=== PATIENT | female | born 1950 | race Caucasian/White ===

== ENCOUNTER 2017-01-13 23:25 | Inpatient (IN) | payer MEDICARE, MEDICAID ==
[~2017-01-13] VITALS: Ht 162.6 cm; Wt 70.0 kg
[~2017-01-13 23:25] MED LIST: BISA10SU12 RC; CETI10TA17 PO; DILT30TA PO; ESTR0.5T PO; ESTR1PAT31; FURO20TA4 PO; HYDR-3729 PO; HYDR-3812 PO; HYDR10TA13 PO; HYDR50TA76 PO; IBP800T PO; LACT10SO63 PO; LEVO750T24 PO; LUBI24CA6 PO; MAGN400T6 PO; MELA3TAB PO; MULT-35 PO; NEBI2.5T5 PO; NEBI5TAB8 PO; NFNEB10T PO; OXYC5TAB71 PO; PANT40TA3 PO; RT-ALBUINH IH; SUCR1TAB PO; THIA100T7 PO; TRAM50TA2 PO; VENTOLIN HFA INHALER INH
[2017-01-13] MEDS ORDERED: fentaNYL INJECTION 100 MCG/2 ML AMP ONE (23:32)
[2017-01-13] MEDS ORDERED: LORazepam INJ 2 MG/ML (ATIVAN) VIAL ONE (23:33)
[2017-01-13] MEDS: ONDANSETRON 4 MG/2 ML (SDV) Z0FRAN ONE (23:39)
[2017-01-13 23:40] LABS: BASOPHILS % (AUTO) 0 % (0-10); EOSINOPHILS # (AUTO) 0.1 10^3/uL (0.0-0.3); EOSINOPHILS % (AUTO) 1 % (0-10); LYMPHOCYTES # (AUTO) 0.8 X 10^3 (1.0-4.0); LYMPHOCYTES % (AUTO) 9 % (12-44); MEAN CORPUSCULAR HEMOGLOBIN 32 PG (25-34); MEAN CORPUSCULAR HGB CONC 35 G/DL (32-36); MEAN CORPUSCULAR VOLUME 92 FL (80-99); MEAN PLATELET VOLUME 8.4 FL (7.4-10.4); MONOCYTES # (AUTO) 0.8 X 10^3 (0.0-1.0); MONOCYTES % (AUTO) 10 % (0-12); NEUTROPHILS % (AUTO) 81 % (42-75); PLATELET COUNT 367 10^3/uL (130-400); RED BLOOD COUNT 3.79 10^6/uL (4.35-5.85); WHITE BLOOD COUNT 8.6 10^3/uL (4.3-11.0)
[2017-01-13] MEDS ORDERED: LORazepam INJ 2 MG/ML (ATIVAN) VIAL IVP ONE (23:45)
[2017-01-13] MEDS ORDERED: fentaNYL INJECTION 100 MCG/2 ML AMP IVP ONE (23:45)
[2017-01-13] MEDS ORDERED: ONDANSETRON 4 MG/2 ML (SDV) Z0FRAN IVP ONE (23:45)
[2017-01-13 23:49] LABS: PROTHROMBIN TIME PATIENT 12.9 SEC (12.2-14.7)
[2017-01-14] VITALS (8 sets, daily range): BP systolic 93–169; BP diastolic 55–90
[2017-01-14] LABS: MAGNESIUM 2.2 MG/DL (1.8-2.4)
[2017-01-14 00:02] LABS: ALBUMIN 4.5 G/DL (3.2-4.5); ALCOHOL < 10 MG/DL (<10); BILIRUBIN,TOTAL 0.6 MG/DL (0.1-1.0); CALCIUM 10.6 MG/DL (8.5-10.1); CREATININE SERUM 2.08 MG/DL (0.60-1.30); POTASSIUM 3.1 MMOL/L (3.6-5.0); TOTAL PROTEIN 7.8 G/DL (6.4-8.2); hs C REACTIVE PROTEIN 0.54 MG/DL (0.00-0.50)
[2017-01-14] MEDS ORDERED: NS IV 1000 ML 1,000 ML IV ONE (00:05)
[2017-01-14] MEDS ORDERED: LACTATED RINGERS 1,000 ML IV ONE (00:13)
[2017-01-14] MEDS ORDERED: fentaNYL INJECTION 100 MCG/2 ML AMP IVP ONE (00:15)
[2017-01-14] MEDS: ONDANSETRON 4 MG/2 ML (SDV) Z0FRAN ONE (00:16)
[2017-01-14 00:58] LABS: OCCULT BLOOD NEGATIVE QC NEGATIVE (NEGATIVE); OCCULT BLOOD POSITIVE QC POSITIVE (POSITIVE); OCCULT BLOOD,GASTRIC FLUID POSITIVE (NEGATIVE)
[2017-01-14] MEDS ORDERED: PANTOPRAZOLE 40 MG/10 ML (PROTONIX) VIAL IV ONE (01:15)
[2017-01-14] MEDS ORDERED: FAMOTIDINE 20MG/2ML IV (PEPCID) IVP ONE (01:15)
[2017-01-14 01:35] LABS: BILIRUBIN,URINE NEGATIVE (NEGATIVE); KETONES,URINE NEGATIVE (NEGATIVE); LEUKOCYTE ESTERASE ,URINE 3+ (NEGATIVE); NITRITE,URINE NEGATIVE (NEGATIVE); PH,URINE 6 (5-9); PROTEIN,URINE 2+ (NEGATIVE); UROBILINOGEN,URINE NORMAL (NORMAL)
--- NOTE | 2017-01-14 01:40 | ED Abdominal Pain ---
General Chief Complaint: Abdominal/GI Problems Stated Complaint: N/V/D Nursing Triage Note: EMS transport to ED 8, call for N/V/D. Pt is hysterical with moaning and sobbing and experiencing carpal pedal spasms. 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 Has started c/o sx this evening. Sepsis Screen: No Definite Risk Source of Information: Patient, Old Records Exam Limitations: No Limitations History of Present Illness Time Seen By Provider: 23:24 Initial Comments This 66-year-old woman presents to the emergency room via EMS with complaints of nausea, vomiting, and diarrhea that started this evening. She denies fever. She seems somewhat disoriented. She reports drinking beer last night but not tonight. EMS reports her stool and emesis has been dark. She does have a history of GI bleed. She has a history of atrial fibrillation but is not on anticoagulation due to history of GI bleed. She also has a history of small bowel obstruction in the past. She was given Zofran 2 mg by EMS. Patient is very anxious and hyperventilating. Her hands are cramping as a result. Allergies and Home Medications Allergies Coded Allergies: Penicillins (Unverified Allergy, Unknown, 04/30/16) codeine (Unverified Allergy, Unknown, dizziness, 05/03/16) pt reports she has had morphine before and has had no problems with it Uncoded Allergies: MYACIN (Allergy, Unknown, 09/06/15) Home Medications Albuterol Sulfate 18 Gm Hfa.aer.ad, 1-2 PUFF IH Q4H PRN for SHORTNESS OF BREATH, (Reported) Diltiazem HCl 30 Mg Tablet, 30 MG PO BID, (Reported) Furosemide 20 Mg Tablet, 20 MG PO DAILY, (Reported) Hydrocortisone 10 Mg Tablet, 10 MG PO BID, (Reported) Lactulose 10 Gm/15 Ml Solution, 15 ML PO BID, (Reported) Lubiprostone 24 Mcg Capsule, 24 MCG PO BID, (Reported) Magnesium Oxide 400 Mg Tablet, 400 MG PO BID, (Reported) Melatonin 3 Mg Tablet, 3 MG PO HS PRN for SLEEP, (Reported) Sucralfate 1 Gm Tablet, 1 GM PO ACHS, (Reported) Thiamine HCl 100 Mg Tablet, 100 MG PO DAILY, (Reported) Tramadol HCl 50 Mg Tablet, 50 MG PO Q8H PRN for PAIN, (Reported) Review of Systems Constitutional: no symptoms reported EENTM: No Symptoms Reported Respiratory: No Symptoms Reported Cardiovascular: No Symptoms Reported Gastrointestinal: See HPI Genitourinary: No Symptoms Reported Musculoskeletal: no symptoms reported Skin: no symptoms reported Psychiatric/Neurological: No Symptoms Reported Endocrine: No Symptoms Reported Hematologic/Lymphatic: No Symptoms Reported Past Evgxvrj-Vzppkj-Qdxcml Hx Patient Social History Alcohol Use: Occasionally Uses Recreational Drug Use: No Drug of Choice: none Smoking Status: Current Everyday Smoker Type Used: Electronic/Vapor Former Smoker/When Quit: Nov 10, 2015 Recent Foreign Travel: No Contact w/Someone Who Travel: No Recent Infectious Disease Expo: No Recent Hopitalizations: No Immunizations Up To Date Tetanus Booster (TDap): More than 5yrs Date of Pneumonia Vaccine: Aug 23, 2007 Seasonal Allergies Seasonal Allergies: No Surgeries HX Surgeries: Yes (PICC LINE, EGD/COLONOSCOPY; LIVER ABSCESS; SCLEROTHERAPY FOR GI BLEED) Surgeries: Appendectomy, Section, Ear Surgery, Gallbladder, Hysterectomy, Oophorectomy, Tonsillectomy Respiratory Hx Respiratory Disorders: Yes Respiratory Disorders: Asthma, COPD, Emphysema Cardiovascular Hx Cardiac Disorders: Yes Cardiac Disorders: Atrial Fibrillation (no anticoagulation due to GI bleeds), Chronic Edema/Swelling, Hypertension Neurological Hx Neurological Disorders: No Reproductive System Hx Reproductive Disorders: Yes Sexually Transmitted Disease: No HIV/AIDS: 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 Genitourinary Hx Genitourinary Disorders: No Gastrointestinal Hx Gastrointestinal Disorders: Yes (PANCREATIC ABSCESS, HX BOWEL BLOCKAGE) Gastrointestinal Disorders: Liver Disease/Jaundice, Gastrointestinal Bleed, Obstructive Bowel Musculoskeletal Hx Musculoskeletal Disorders: Yes (MUSCLE INJURY TO LEFT HIP FROM FALL AT WORK) Musculoskeletal Disorders: Osteoporosis, Arthritis, Rheumatoid Arthritis Endocrine Hx Endocrine Disorders: No HEENT HX ENT Disorders: No Cancer Hx Cancer: No Psychosocial Hx Psychiatric Problems: No Integumentary HX Skin/Integumentary Disorder: Yes (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 ) Adverse Reaction to a Blood Tr: No Family Medical History Family Medial History: Cardiovascular disease 19 MOTHER (cabg) Neoplasm 19 FATHER (multiple myloma) Physical Exam Vital Signs VS - Last 72 Hours, by Label 01/13/17 23:26 Temp 98.6 Pulse 98 Resp 27 B/P (MAP) 101/65 Pulse Ox 97 O2 Flow Rate 2.00 Capillary Refill : Less Than 3 Seconds General Appearance: WD/WN, moderate distress HEENT: PERRL/EOMI, normal ENT inspection, other (oropharynx somewhat dry) Neck: normal inspection Respiratory: lungs clear, normal breath sounds, no respiratory distress, no accessory muscle use Cardiovascular: no edema, no murmur, irregularly irregular Gastrointestinal: normal bowel sounds, distended (firm and distended), tenderness (generalized) Extremities: normal inspection, no pedal edema 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, alert, motor weakness ( generalized), other (disoriented) Skin: normal color, warm/dry Progress/Results/Core Measures Results/Orders Lab Results Laboratory Tests Test 01/13/17 00:18 01/13/17 01:28 01/13/17 23:33 01/14/17 00:16 Range/Units Gastric Fluid Occult Blood POSITIVE NEGATIVE Urine Color YELLOW Urine Clarity VERY CLOUDY H Urine pH 6 5-9 Urine Specific [place] 1.010 L 1.016-1.022 Urine Protein 2+ H NEGATIVE Urine Glucose (UA) NEGATIVE NEGATIVE Urine Ketones NEGATIVE NEGATIVE Urine Nitrite NEGATIVE NEGATIVE Urine Bilirubin NEGATIVE NEGATIVE Urine Urobilinogen NORMAL NORMAL MG/DL Urine Leukocyte Esterase 3+ H NEGATIVE Urine RBC (Auto) 1+ H NEGATIVE Urine RBC 10-25 H /HPF Urine WBC 25-50 H /HPF Urine Squamous Epithelial Cells 2-5 /HPF Urine Crystals NONE /LPF Urine Bacteria LARGE H /HPF Urine Casts NONE /LPF Urine Mucus MODERATE H /LPF Urine Culture Indicated YES White Blood Count 8.6 4.3-11.0 10^3/uL Red Blood Count 3.79 L 4.35-5.85 10^6/uL Hemoglobin 12.1 11.5-16.0 G/DL Hematocrit 35 35-52 % Mean Corpuscular Volume 92 80-99 FL Mean Corpuscular Hemoglobin 32 25-34 PG Mean Corpuscular Hemoglobin Concent 35 32-36 G/DL Red Cell Distribution Width 13.0 10.0-14.5 % Platelet Count 367 130-400 10^3/uL Mean Platelet Volume 8.4 7.4-10.4 FL Neutrophils (%) (Auto) 81 H 42-75 % Lymphocytes (%) (Auto) 9 L 12-44 % Monocytes (%) (Auto) 10 0-12 % Eosinophils (%) (Auto) 1 0-10 % Basophils (%) (Auto) 0 0-10 % Neutrophils # (Auto) 7.0 1.8-7.8 X 10^3 Lymphocytes # (Auto) 0.8 L 1.0-4.0 X 10^3 Monocytes # (Auto) 0.8 0.0-1.0 X 10^3 Eosinophils # (Auto) 0.1 0.0-0.3 10^3/uL Basophils # (Auto) 0.0 0.0-0.1 10^3/uL Prothrombin Time 12.9 12.2-14.7 SEC INR Comment 1.0 0.8-1.4 Activated Partial Thromboplast Time 34 24-35 SEC Sodium Level 134 L 135-145 MMOL/L Potassium Level 3.1 L 3.6-5.0 MMOL/L Chloride Level 81 L 98-107 MMOL/L Carbon Dioxide Level 31 21-32 MMOL/L Anion Gap 22 H 5-14 MMOL/L Blood Urea Nitrogen 24 H 7-18 MG/DL Creatinine 2.08 H 0.60-1.30 MG/DL Estimat Glomerular Filtration Rate 24 BUN/Creatinine Ratio 12 Glucose Level 118 H 70-105 MG/DL Calcium Level 10.6 H 8.5-10.1 MG/DL Magnesium Level 2.2 1.8-2.4 MG/DL Total Bilirubin 0.6 0.1-1.0 MG/DL Aspartate Amino Transf (AST/SGOT) 28 5-34 U/L Alanine Aminotransferase (ALT/SGPT) 20 0-55 U/L Alkaline Phosphatase 190 H 40-136 U/L C-Reactive Protein High Sensitivity 0.54 H 0.00-0.50 MG/DL Total Protein 7.8 6.4-8.2 G/DL Albumin 4.5 3.2-4.5 G/DL Lipase 34 8-78 U/L Serum Alcohol < 10 <10 MG/DL Ammonia 12 11-32 UMOL/L My Orders Orders - MICHAEL VÁZQUEZ MD Ondansetron Injection (Zofran Injectio (01/13/17 23:45) Fentanyl Injection (Sublimaze Injection (01/13/17 23:45) Lorazepam Injection (Ativan Injection) (01/13/17 23:45) Cbc With Automated Diff (01/13/17 23:35) Comprehensive Metabolic Panel (01/13/17 23:35) Hs C Reactive Protein (01/13/17 23:35) Lipase (01/13/17 23:35) Protime With Inr (01/13/17 23:35) Partial Thromboplastin Time (01/13/17 23:35) Ua Culture If Indicated (01/13/17 23:35) Saline Lock/Iv-Start (01/13/17 23:35) Fentanyl Injection (Sublimaze Injection (01/13/17 23:32) Ondansetron Injection (Zofran Injectio (01/13/17 23:32) Lorazepam Injection (Ativan Injection) (01/13/17 23:33) Alcohol (01/13/17 23:37) Magnesium (01/13/17 23:37) Fentanyl Injection (Sublimaze Injection (01/14/17 00:15) Chest 1 View, Ap/Pa Only (01/14/17 00:05) Ns Iv 1000 Ml (Sodium Chloride 0.9%) (01/14/17 00:05) Ammonia (01/14/17 00:12) Lactated Ringers (Lr 1000 Ml Iv Solution (01/14/17 00:13) Ct Abdomen/Pelvis Wo (01/14/17 00:29) Occult Blood,Gastric Fluid (01/14/17 00:44) Drug Screen Stat (Urine) (01/13/17 23:35) Famotidine Injection (Pepcid Injection) (01/14/17 01:15) Pantoprazole Injection (Protonix Injecti (01/14/17 01:15) Medications Given in ED Current Medications Medications Dose Ordered Sig/Austyn Route Start Time Stop Time Status Last Admin Dose Admin Famotidine 20 mg ONCE ONCE IVP 01/14/17 01:15 01/14/17 01:16 DC 01/14/17 01:15 20 MG Fentanyl Citrate 25 mcg ONCE ONCE IVP 01/14/17 00:15 01/14/17 00:16 DC 01/14/17 00:10 25 MCG Lactated Ringer's 1,000 ml @ 0 mls/hr Q0M ONCE IV 01/14/17 00:13 01/14/17 00:14 DC 01/14/17 00:50 999 MLS/HR Lorazepam 0.5 mg ONCE ONCE IVP 01/13/17 23:45 01/13/17 23:46 DC 01/13/17 23:37 0.5 MG Ondansetron HCl 4 mg ONCE ONCE IVP 01/13/17 23:45 01/13/17 23:46 DC 01/13/17 23:37 4 MG Ondansetron HCl 4 mg STK-MED ONCE .ROUTE 01/13/17 23:32 01/13/17 23:36 DC 01/14/17 00:16 4 MG Pantoprazole 80 mg ONCE ONCE IV 01/14/17 01:15 01/14/17 01:16 DC 01/14/17 01:15 80 MG Vital Signs/I&O Vital Sign - Last 12Hours 01/13/17 23:26 Temp 98.6 Pulse 98 Resp 27 B/P (MAP) 101/65 Pulse Ox 97 O2 Flow Rate 2.00 Blood Pressure Mean: 77 Progress Note : Progress Note Workup for suspected bowel obstruction was initiated. Patient was very anxious and hyperventilating. She was given 0.25 mg of Ativan which caused apnea. Nasal cannula was applied. The sedative effect cleared fairly rapidly. Patient was vomiting during assessment. Emesis was dark and tested positive for gastric Hemoccult. Patient was treated with an additional 8 mg of Zofran to control nausea and vomiting. NG was placed prior to transfer to CT scan. She had an immediate yield of 800 mL of gastric contents. CT scan confirmed small bowel obstruction. Patient was hydrated with 1 L of lactated Ringer's. Mccallum catheter was placed. Patient's pain was eventually treated with fentanyl 25 g after the effect of Ativan wore off. Patient was also found to have a urinary tract infection. Cipro was ordered to be initiated on the floor. Patient has a penicillin allergy. Patient's mentation and distress improved significantly after gastric contents were emptied with NG. Total NG output during the course of her ER stay was 1550 mL. Protonix 80 mg and Pepcid 20 mg were administered by IV route. Diagnostic Imaging Diagonstic Imaging: CT Plain Films/CT/US/NM/MRI: abdomen, pelvis Comments CT abdomen and pelvis viewed by me and [facility] report reviewed. There is small bowel dilatation with focal transition point suggesting a small bowel obstruction. NG tube in place. Internal plastic biliary stent noted with pneumobilia. Epigastric hernia containing transverse colon. Diverticulosis. Post cholecystectomy. Severe right hip degenerative changes. Departure Communication Time/Spoke to Admitting Phy: 01:05 Communication Case reviewed with Dr. Cherry. He requests consultation with surgery. Time/Spoke to Consulting Physi: 01:10 Communication/Consulting Case reviewed with Dr. Ramírez who requests a small bowel follow through to be performed with Gastrografin in the morning. Impression Impression: Primary Impression: Small bowel obstruction Additional Impressions: Acute renal failure Qualified Codes: N17.9 - Acute kidney failure, unspecified Nausea vomiting and diarrhea positive gastric Hemoccult Hypokalemia Disorientation Chronic atrial fibrillation Hyperventilation Urinary tract infection Qualified Codes: N39.0 - Urinary tract infection, site not specified Disposition: 01 HOME, SELF-CARE Condition: Improved Decision to Admit Reason: Admit from ER (General) Decision to Admit/Date: January 14, 2017 Time/Decision to Admit Time: 23:30 Departure-Patient Inst. Referrals: DENICE STUART DO (PCP/Family) Primary Care Physician MICHAEL VÁZQUEZ MD January 14, 2017 01:40
[2017-01-14 01:55] LABS: WBC,URINE 25-50 /HPF
[2017-01-14] MEDS ORDERED: CIPROFLOXACIN IV 400MG/200ML 200 ML IV ONE (03:15)
[2017-01-14] MEDS ORDERED: NS W/KCL 20 MEQ/L 1,000 ML IV ONE (03:16)
[2017-01-14] MEDS: NS W/KCL 20 MEQ/L 1,000 ML IV SCH ×5 (04:00→20:56)
[2017-01-14 07:00] LABS: BASOPHILS % (AUTO) 0 % (0-10); EOSINOPHILS # (AUTO) 0.1 10^3/uL (0.0-0.3); EOSINOPHILS % (AUTO) 2 % (0-10); LYMPHOCYTES # (AUTO) 0.5 X 10^3 (1.0-4.0); LYMPHOCYTES % (AUTO) 11 % (12-44); MEAN CORPUSCULAR HEMOGLOBIN 31 PG (25-34); MEAN CORPUSCULAR HGB CONC 33 G/DL (32-36); MEAN CORPUSCULAR VOLUME 95 FL (80-99); MEAN PLATELET VOLUME 8.4 FL (7.4-10.4); MONOCYTES # (AUTO) 0.8 X 10^3 (0.0-1.0); MONOCYTES % (AUTO) 21 % (0-12); NEUTROPHILS # (AUTO) 2.7 X 10^3 (1.8-7.8); NEUTROPHILS % (AUTO) 66 % (42-75); PLATELET COUNT 280 10^3/uL (130-400); RED BLOOD COUNT 3.34 10^6/uL (4.35-5.85); RED CELL DISTRIBUTION WIDTH 13.1 % (10.0-14.5)
[2017-01-14 07:16] LABS: ALBUMIN 3.6 G/DL (3.2-4.5); BILIRUBIN,TOTAL 0.6 MG/DL (0.1-1.0); CALCIUM 8.8 MG/DL (8.5-10.1); CREATININE SERUM 2.48 MG/DL (0.60-1.30); MAGNESIUM 1.9 MG/DL (1.8-2.4); POTASSIUM 4.5 MMOL/L (3.6-5.0); TOTAL PROTEIN 6.1 G/DL (6.4-8.2)
[2017-01-14 07:26] LABS: BASOPHILS % (MANUAL) 1 %; EOSINOPHILS % (MANUAL) 1 %; LYMPHOCYTES % (MANUAL) 13 %; NEUTROPHILS % (MANUAL) 68 %
--- NOTE | 2017-01-14 08:27 | History & Physicial (CHS) ---
HPI History of Present Illness: 66-year-old female presents to the emergency department during the evening of January 13, 2017 with reports of nausea and vomiting. She is a patient of [facility] and does report she sees Dr. Silva. Apparently she has also had diarrhea and the symptoms started during the evening of day of presentation. Patient does have a history of gastrointestinal bleed. She does have history of atrial fibrillation but is not taking any anticoagulation therapy currently. There is no reports of any fever. She denies any burning on urination. Source: patient Exam Limitations: clinical condition Date seen by provider: January 14, 2017 Attending Physician Gilma Chase MD PCP Maria Luisa Ricks DO Consult Date of Admission January 14, 2017 at 01:15 Home Medications Home Medications Reviewed patient Home Medication Reconciliation Form Allergies Coded Allergies: Penicillins (Unverified Allergy, Unknown, 04/30/16) codeine (Unverified Allergy, Unknown, dizziness, 05/03/16) pt reports she has had morphine before and has had no problems with it Uncoded Allergies: MYACIN (Allergy, Unknown, 09/06/15) LQT-Ndxoum-Kxvenn Hx Patient Social History Alcohol Use: Occasionally Uses Recreational Drug Use: No Drug of Choice: none Smoking Status: Current Everyday Smoker Former smoker/When Quit: Nov 10, 2015 Type Used: Electronic/Vapor Contact w/other who traveled: No Recent Hopitalizations: No Recent Infectious Disease Expo: No Immunizations Up To Date Tetanus Booster (TDap): More than 5yrs Date of Pneumonia Vaccine: Aug 23, 2007 Past Medical History PMHx: 1.Arthritis 2.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 Recent GI bleed with sclerotherapy 7. Atrial Fibrillation with inability to take anticoagulant secondary to GI bleed PSHx: 1.Hysterectomy 2. x 2 3.Tonsillectomy 4.Ear surgeries 5.EGD and Colonoscopy with sclerotherapy Dandre 08/25 Family Medical History Family History: Cardiovascular disease 19 MOTHER (cabg) Neoplasm 19 FATHER (multiple myloma) Review of Systems ([facility]) Constitutional: see HPI Physical Exam-([facility]C) Physical Exam Vital Signs VS - Last 72 Hours, by Label 01/13/17 01/14/17 01/14/17 01/14/17 23:26 02:10 02:25 02:30 Temp 98.6 98.6 99.8 Pulse 98 91 106 Resp 27 18 16 B/P (MAP) 101/65 139/76 Pulse Ox 97 100 100 99 O2 Delivery Nasal Cannula O2 Flow Rate 2.00 2.00 2.00 01/14/17 01/14/17 01/14/17 01/14/17 03:00 03:22 04:30 05:11 Temp 99.8 99.2 Pulse 95 90 89 Resp 18 18 B/P (MAP) 119/58 104/68 Pulse Ox 95 100 100 O2 Delivery Nasal Cannula Nasal Cannula O2 Flow Rate 2.00 2.00 2.00 01/14/17 01/14/17 01/14/17 01/14/17 05:30 07:06 07:10 08:00 Temp 99.3 100.0 Pulse 90 99 95 Resp 18 B/P (MAP) 93/55 114/55 Pulse Ox 100 100 99 O2 Delivery Nasal Cannula Nasal Cannula O2 Flow Rate 2.00 2.00 2.00 01/14/17 01/14/17 01/14/17 01/14/17 09:00 12:36 12:57 16:00 Temp 99.1 98.3 Pulse 90 93 99 Resp 20 20 B/P (MAP) 105/56 161/84 Pulse Ox 99 94 94 O2 Delivery Nasal Cannula Nasal Cannula O2 Flow Rate 1.00 2.00 2.00 01/14/17 01/14/17 01/14/17 01/14/17 18:32 20:00 21:00 21:33 Temp 98.2 Pulse 102 Resp 20 B/P (MAP) 169/90 Pulse Ox 96 98 97 95 O2 Delivery Nasal Cannula O2 Flow Rate 1.00 2.00 1.00 1.00 01/15/17 01/15/17 01/15/17 03:42 04:45 07:16 Temp 99.2 Pulse 103 103 Resp 20 B/P (MAP) 170/87 Pulse Ox 96 97 O2 Delivery Nasal Cannula O2 Flow Rate 1.00 2.00 Capillary Refill : Less Than 3 Seconds General Appearance: mild distress (She does appear to be somewhat lethargic but she does answer questions appropriately) Eyes: Bilateral Eye Normal Inspection Neck: non-tender, supple Respiratory: lungs clear Cardiovascular: irregularly irregular (but the rate is controlled at 100) Gastrointestinal: soft (But she does have nasogastric tube in place), no pulsatile mass, abnormal bowel sounds (With the sounds being distant and not heard currently) Rectal: deferred Extremities: no pedal edema Assessment/Plan Assessment/Plan Admission Dx 1. Small bowel obstruction 2. Acute renal insufficiency--as evident by elevated creatinine 3. Hypokalemia 4. Urinary tract infection 5. Atrial fibrillation with rate controlled-- history of Plan 1. Small bowel obstruction -Patient currently with nasogastric tube in place. -Consultation with surgery and plans are for small bowel follow-through in the morning of January 14 2. Acute renal insufficiency--as evident by elevated creatinine -Creatinine followed carefully. -Rehydration with IV fluids 3. Hypokalemia -Potassium replacement per IV fluids 4. Urinary tract infection -She was started on IV ciprofloxacin through the emergency department 5. Atrial fibrillation with rate controlled-- history of -Continue to monitor rate Diagnosis/Problems: Clinical Quality Measures DVT/VTE Risk/Contraindication: Risk Factor Score Per Nursin RFS Level Per Nursing on Admit: 4+=Very High GILMA CHASE MD January 14, 2017 08:27
--- NOTE | 2017-01-14 08:32 | Diagnostic Imaging Report ---
INDICATION: Nausea, vomiting, diarrhea, and severe abdominal pain EXAMINATION: Chest dated 01/14/2017 COMPARISON: 08/05/2016 FINDINGS: Heart is stable. Pulmonary vasculature is unremarkable. The lungs demonstrate no new findings with no effusions or infiltrates. There is no pneumothorax. There is a feeding tube coursing beneath the diaphragm. IMPRESSION: 1. Stable chest. No acute process. Dictated by: Dictated on workstation # [id number]
[2017-01-14] MEDS ORDERED: FAMOTIDINE 20MG/2ML IV (PEPCID) IVP SCH (09:00)
[2017-01-14] MEDS ORDERED: DIATRIZOATE MEGLUM/SODIUM 37% 120 ML (GASTROGRAFIN) NG ONE (09:00)
--- NOTE | 2017-01-14 09:18 | Diagnostic Imaging Report ---
PROCEDURE: CT abdomen and pelvis without contrast. TECHNIQUE: Multiple contiguous axial images were obtained through the abdomen and pelvis without the use of intravenous contrast. INDICATION: Nausea, vomiting, diarrhea, severe abdominal pain. EXAMINATION: CT abdomen and pelvis without contrast 01/14/2017. COMPARISON: 08/05/2016 FINDINGS: Since the previous examination the nodular-like density in the medial aspect of the right lower lung is noted measuring approximately a centimeter in size. Not seen previously but perhaps not included on previous CT. Dedicated imaging of the chest on a nonemergent basis could be performed to exclude other possible nodules. Otherwise a followup in 3 months could assure stability and/or resolution. Other tiny less than 2 mm nodules seen at the right lung base with areas of atelectasis or scarring bilaterally. Partially imaged likely calcified lymph nodes in the right hilum. There is a feeding tube tip in the stomach. There is an anterior abdominal wall hernia containing a loop of bowel likely portions of the transverse colon. Remaining colon however is nondistended. There are multiple dilated loops of small bowel diffusely throughout the abdomen which are fluid-filled. There is a focal transition point suspected in the left lower to central abdomen. There is a biliary stent in place. There is diffuse air within the biliary tree in the liver similar to previous. No free air is seen. There is diffuse diverticular disease without evidence for diverticulitis. Very minimal free fluid in pelvis is noted. There is no free air in the abdomen or pelvis. The bladder wall is thickened and could be due to underdistention versus cystitis correlate clinically. The osseous structures demonstrate diffuse degenerative findings fairly marked within the right hip. The liver and spleen contain multiple bilateral calcifications consistent with old granulomatous disease. The unopacified adrenal glands unremarkable. Pancreas is markedly atrophied. The kidneys contain small hypodensities too small to characterize especially without contrast. These could be followed as clinically warranted. IMPRESSION: 1. Findings within the small bowel loops suspicious for at least a partial small bowel obstruction, see above discussion. 2. Persistent pneumobilia with a stent in place as discussed above. 3. Intra-abdominal wall hernia containing a portion of the transverse colon but without a focal obstruction at this level. 4. Other incidental findings as discussed above. 5. Multiple other incidental findings as discussed above. Dictated by: Dictated on workstation # [id number]
[2017-01-14] MEDS: fentaNYL INJECTION 100 MCG/2 ML AMP IVP PRN ×10 (09:55→23:11)
[2017-01-14] MEDS: PANTOPRAZOLE 40 MG/10 ML (PROTONIX) VIAL IV SCH ×2 (11:44→20:39)
[2017-01-14] MEDS: DILTIAZEM 30 MG (CARDIZEM) TAB NG SCH ×2 (11:44→20:40)
[2017-01-14] MEDS: ONDANSETRON 4 MG/2 ML (SDV) Z0FRAN IV PRN ×2 (13:47→21:00)
--- NOTE | 2017-01-14 14:16 | Consultation ---
History of Present Illness History of Present Illness Patient Consulted On(carlos/time) 01/14/17 14:11 Date of Admission History of Present Illness CC nausea and emesis. Patient is a 66 year old female who began having nausea and emesis last night. She was taken to ED by ambulance. She states her abdomen was very distended and tender. Patient reports one previous episode of this as well. Ng tube was placed and was on LIWS and she states her abdomen has gone down some. She states she is passing some flatus. She had gastric contents from NG tube positive for occult blood. Patient no other complaints at this time. Denies nausea or emesis currently. No chest pain or shortness of breath. Mccallum in place no urinary complaints at this time. Allergies and Home Medications Allergies Coded Allergies: Penicillins (Unverified Allergy, Unknown, 04/30/16) codeine (Unverified Allergy, Unknown, dizziness, 05/03/16) pt reports she has had morphine before and has had no problems with it Uncoded Allergies: MYACIN (Allergy, Unknown, 09/06/15) Home Medications Albuterol Sulfate 18 Gm Hfa.aer.ad, 1-2 PUFF IH Q4H PRN for SHORTNESS OF BREATH, (Reported) Diltiazem HCl 30 Mg Tablet, 30 MG PO BID, (Reported) Furosemide 20 Mg Tablet, 20 MG PO DAILY, (Reported) Hydrocortisone 10 Mg Tablet, 10 MG PO BID, (Reported) Lactulose 10 Gm/15 Ml Solution, 15 ML PO BID, (Reported) Lubiprostone 24 Mcg Capsule, 24 MCG PO BID, (Reported) Magnesium Oxide 400 Mg Tablet, 400 MG PO BID, (Reported) Melatonin 3 Mg Tablet, 3 MG PO HS PRN for SLEEP, (Reported) Sucralfate 1 Gm Tablet, 1 GM PO ACHS, (Reported) Thiamine HCl 100 Mg Tablet, 100 MG PO DAILY, (Reported) Tramadol HCl 50 Mg Tablet, 50 MG PO Q8H PRN for PAIN, (Reported) Past Llntklv-Ttlhcw-Yqesnm Hx Patient Social History Alcohol Use: Occasionally Uses Recreational Drug Use: No Drug of Choice: none Smoking Status: Current Everyday Smoker Former Smoker/When Quit: Nov 10, 2015 Type Used: Electronic/Vapor Contact w/Someone Who Travel: No Recent Infectious Disease Expo: No Recent Hopitalizations: No Immunizations Up To Date Tetanus Booster (TDap): More than 5yrs Date of Pneumonia Vaccine: Aug 23, 2007 Seasonal Allergies Seasonal Allergies: No Surgeries HX Surgeries: Yes (PICC LINE, EGD/COLONOSCOPY; LIVER ABSCESS; SCLEROTHERAPY FOR GI BLEED, biliary stent) Surgeries: Appendectomy, Section, Ear Surgery, Gallbladder, Hysterectomy, Oophorectomy, Tonsillectomy Respiratory Hx Respiratory Disorders: Yes Respiratory Disorders: Asthma, COPD, Emphysema Cardiovascular Hx Cardiac Disorders: Yes Cardiac Disorders: Atrial Fibrillation (no anticoagulation due to GI bleeds), Chronic Edema/Swelling, Hypertension Neurological Hx Neurological Disorders: No Reproductive System Hx Reproductive Disorders: Yes Sexually Transmitted Disease: No HIV/AIDS: No [employer] History: Hysterectomy Genitourinary Hx Genitourinary Disorders: No Gastrointestinal Hx Gastrointestinal Disorders: Yes (PANCREATIC ABSCESS, HX BOWEL BLOCKAGE) Gastrointestinal Disorders: Liver Disease/Jaundice, Gastrointestinal Bleed, Obstructive Bowel Musculoskeletal Hx Musculoskeletal Disorders: Yes (MUSCLE INJURY TO LEFT HIP FROM FALL AT WORK) Musculoskeletal Disorders: Osteoporosis, Arthritis, Rheumatoid Arthritis Endocrine Hx Endocrine Disorders: No HEENT HX ENT Disorders: No Cancer Hx Cancer: No Psychosocial Hx Psychiatric Problems: No Integumentary HX Skin/Integumentary Disorder: Yes (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 ) Adverse Reaction to a Blood Tr: No Family Medical History Family Medial History: Cardiovascular disease 19 MOTHER (cabg) Neoplasm 19 FATHER (multiple myloma) Review of Systems-General Constitutional: see HPI EENTM: no symptoms reported Respiratory: no symptoms reported Cardiovascular: no symptoms reported Gastrointestinal: see HPI Genitourinary: no symptoms reported Musculoskeletal: no symptoms reported Skin: no symptoms reported Psychiatric/Neurological: No Symptoms Reported Physical Exam-General Problems Physical Exam Vital Signs Vital Sign - Last 12Hours 01/13/17 01/14/17 23:26 02:30 Temp 98.6 Pulse 98 Resp 27 B/P (MAP) 101/65 Pulse Ox 97 O2 Delivery Nasal Cannula O2 Flow Rate 2.00 Capillary Refill : Less Than 3 Seconds General Appearance: no apparent distress HEENT: PERRL/EOMI Neck: supple Respiratory: no respiratory distress, no accessory muscle use Cardiovascular: regular rate, rhythm Gastrointestinal: soft, distended (incisional hernia reducible epigastric region of abdomen. no significant tenderness to palpation of abdomen) Rectal: deferred Back: normal inspection Extremities: non-tender Neurologic/Psychiatric: alert, normal mood/affect, oriented x 3 Skin: warm/dry Comments right groin area with slight erythematous rash Data Review Labs Laboratory Tests 01/13/17 23:33: White Blood Count 8.6, Red Blood Count 3.79L, Hemoglobin 12.1, Hematocrit 35, Mean Corpuscular Volume 92, Mean Corpuscular Hemoglobin 32, Mean Corpuscular Hemoglobin Concent 35, Red Cell Distribution Width 13.0, Platelet Count 367, Mean Platelet Volume 8.4, Neutrophils (%) (Auto) 81H, Lymphocytes (%) (Auto) 9L , Monocytes (%) (Auto) 10, Eosinophils (%) (Auto) 1, Basophils (%) (Auto) 0, Neutrophils # (Auto) 7.0, Lymphocytes # (Auto) 0.8L, Monocytes # (Auto) 0.8, Eosinophils # (Auto) 0.1, Basophils # (Auto) 0.0, Prothrombin Time 12.9, INR Comment 1.0, Activated Partial Thromboplast Time 34, Sodium Level 134L, Potassium Level 3.1L, Chloride Level 81L, Carbon Dioxide Level 31, Anion Gap 22H , Blood Urea Nitrogen 24H, Creatinine 2.08H, Estimat Glomerular Filtration Rate 24, BUN/Creatinine Ratio 12, Glucose Level 118H, Calcium Level 10.6H, Magnesium Level 2.2, Total Bilirubin 0.6, Aspartate Amino Transf (AST/SGOT) 28, Alanine Aminotransferase (ALT/SGPT) 20, Alkaline Phosphatase 190H, C-Reactive Protein High Sensitivity 0.54H, Total Protein 7.8, Albumin 4.5, Lipase 34, Serum Alcohol < 10 01/14/17 00:16: Ammonia 12 01/14/17 06:50: White Blood Count 4.0L, Red Blood Count 3.34L, Hemoglobin 10.4L, Hematocrit 32L , Mean Corpuscular Volume 95, Mean Corpuscular Hemoglobin 31, Mean Corpuscular Hemoglobin Concent 33, Red Cell Distribution Width 13.1, Platelet Count 280, Mean Platelet Volume 8.4, Neutrophils (%) (Auto) 66, Lymphocytes (%) (Auto) 11L , Monocytes (%) (Auto) 21H, Eosinophils (%) (Auto) 2, Basophils (%) (Auto) 0, Neutrophils # (Auto) 2.7, Lymphocytes # (Auto) 0.5L, Monocytes # (Auto) 0.8, Eosinophils # (Auto) 0.1, Basophils # (Auto) 0.0, Sodium Level 135, Potassium Level 4.5, Chloride Level 85L, Carbon Dioxide Level 35H, Anion Gap 15H, Blood Urea Nitrogen 28H, Creatinine 2.48H, Estimat Glomerular Filtration Rate 20, BUN/ Creatinine Ratio 11, Glucose Level 112H, Calcium Level 8.8, Magnesium Level 1.9 , Total Bilirubin 0.6, Aspartate Amino Transf (AST/SGOT) 21, Alanine Aminotransferase (ALT/SGPT) 14, Alkaline Phosphatase 154H, Total Protein 6.1L, Albumin 3.6, Neutrophils % (Manual) 68, Lymphocytes % (Manual) 13, Monocytes % ( Manual) 17, Eosinophils % (Manual) 1, Basophils % (Manual) 1, Blood Morphology Comment NORMAL Assessment/Plan Assessment/Plan Assessment/Plan nausea and vomiting partial small bowel obstruction incisional hernia occult positive ng tube contents patient with ct scan findings consistent with small bowel obstruction had pneumobilia form stent unchanged from previous scan patient with NG tube Small bowel follow through in process. will continue with conservative management at this time. follow hgb + occult could be from ng insertion but does have history of GI bleed No surgical intervention at this time will follow. Clinical Quality Measures DVT/VTE Risk/Contraindication: Risk Factor Score Per Nursin RFS Level Per Nursing on Admit: 4+=Very High PENNIE ANDRES DO January 14, 2017 14:16
[2017-01-14 17:23] LABS: CALCIUM 8.5 MG/DL (8.5-10.1); CREATININE SERUM 2.49 MG/DL (0.60-1.30)
[2017-01-15] MEDS: fentaNYL INJECTION 100 MCG/2 ML AMP IVP PRN ×9 (00:41→22:39)
[2017-01-15 00:45] VITALS: BP 170/87
[2017-01-15] MEDS: FAMOTIDINE 20MG/2ML IV (PEPCID) IVP SCH (01:17)
[2017-01-15] MEDS: NS W/KCL 20 MEQ/L 1,000 ML IV SCH ×5 (01:36→19:58)
[2017-01-15] MEDS: CIPROFLOXACIN 400 MG/D5W 200 ML (PRE-MIX) IV SCH (03:11)
[2017-01-15] MEDS: ONDANSETRON 4 MG/2 ML (SDV) Z0FRAN IV PRN ×3 (03:12→14:14)
[2017-01-15 04:45] VITALS: BP 170/87
[2017-01-15 06:46] LABS: BASOPHILS % (AUTO) 0 % (0-10); EOSINOPHILS % (AUTO) 0 % (0-10); LYMPHOCYTES # (AUTO) 0.5 X 10^3 (1.0-4.0); LYMPHOCYTES % (AUTO) 12 % (12-44); MEAN CORPUSCULAR HEMOGLOBIN 32 PG (25-34); MEAN CORPUSCULAR HGB CONC 32 G/DL (32-36); MEAN CORPUSCULAR VOLUME 101 FL (80-99); MEAN PLATELET VOLUME 8.3 FL (7.4-10.4); MONOCYTES # (AUTO) 0.8 X 10^3 (0.0-1.0); MONOCYTES % (AUTO) 17 % (0-12); NEUTROPHILS # (AUTO) 3.2 X 10^3 (1.8-7.8); NEUTROPHILS % (AUTO) 71 % (42-75); PLATELET COUNT 260 10^3/uL (130-400); RED CELL DISTRIBUTION WIDTH 13.5 % (10.0-14.5); WHITE BLOOD COUNT 4.5 10^3/uL (4.3-11.0)
[2017-01-15 07:02] LABS: ALBUMIN 3.8 G/DL (3.2-4.5); BILIRUBIN,TOTAL 0.6 MG/DL (0.1-1.0); CALCIUM 8.7 MG/DL (8.5-10.1); CREATININE SERUM 1.76 MG/DL (0.60-1.30); POTASSIUM 4.5 MMOL/L (3.6-5.0); TOTAL PROTEIN 6.7 G/DL (6.4-8.2)
[2017-01-15 08:00] VITALS: BP 162/80
--- NOTE | 2017-01-15 08:56 | Progress Note (SOAP) ---
Subjective Subjective/Events-last exam patient with NG tube in place but it is clamped. She does report she is thirsty. She apparently had 2 bowel movements yesterday. The small bowel follow-through study was performed yesterday. Date seen by provider: January 15, 2017 Objective Exam Last Set of Vital Signs Vital Signs Date Time Temp Pulse Resp B/P (MAP) Pulse Ox O2 Delivery O2 Flow Rate FiO2 01/15/17 07:16 103 01/15/17 04:45 99.2 20 170/87 97 Nasal Cannula 2.00 Capillary Refill : Less Than 3 Seconds I&O Bad tableGeneral: No Acute Distress HEENT: Other (nasogastric tube in place) Lungs: Clear to Auscultation Heart: Regular Rate Abdomen: Soft Results/Procedures Lab Laboratory Tests 01/14/17 16:58: Sodium Level 140, Potassium Level 5.0, Chloride Level 97L, Carbon Dioxide Level 31, Anion Gap 12, Blood Urea Nitrogen 32H, Creatinine 2.49H, Estimat Glomerular Filtration Rate 19, BUN/Creatinine Ratio 13, Glucose Level 114H, Calcium Level 8.5 01/15/17 06:35: Sodium Level 143, Potassium Level 4.5, Chloride Level 105, Carbon Dioxide Level 26, Anion Gap 12, Blood Urea Nitrogen 29H, Creatinine 1.76H, Estimat Glomerular Filtration Rate 29, BUN/Creatinine Ratio 16, Glucose Level 98, Calcium Level 8.7 , White Blood Count 4.5, Red Blood Count 3.30L, Hemoglobin 10.5L, Hematocrit 33L , Mean Corpuscular Volume 101H, Mean Corpuscular Hemoglobin 32, Mean Corpuscular Hemoglobin Concent 32, Red Cell Distribution Width 13.5, Platelet Count 260, Mean Platelet Volume 8.3, Neutrophils (%) (Auto) 71, Lymphocytes (%) (Auto) 12, Monocytes (%) (Auto) 17H, Eosinophils (%) (Auto) 0, Basophils (%) ( Auto) 0, Neutrophils # (Auto) 3.2, Lymphocytes # (Auto) 0.5L, Monocytes # (Auto ) 0.8, Eosinophils # (Auto) 0.0, Basophils # (Auto) 0.0, Total Bilirubin 0.6, Aspartate Amino Transf (AST/SGOT) 19, Alanine Aminotransferase (ALT/SGPT) 14, Alkaline Phosphatase 147H, Total Protein 6.7, Albumin 3.8 Microbiology 01/13/17 Urine Culture - Final, Complete Klebsiella Pneumoniae Assessment/Plan Assessment/Plan Admission Dx 1. Small bowel obstruction 2. Acute renal insufficiency--as evident by elevated creatinine 3. Hypokalemia 4. Urinary tract infection 5. Atrial fibrillation with rate controlled-- history of Plan 1. Small bowel obstruction -Patient currently with nasogastric tube in place. -Consultation with surgery and plans are for small bowel follow-through in the morning of January 1401/15 awaiting results of small bowel follow-through 2. Acute renal insufficiency--as evident by elevated creatinine -Creatinine followed carefully. -Rehydration with IV fluids 01/15 creatinine has improved to 1.76 -Will recheck basic metabolic panel in the morning 3. Hypokalemia -Potassium replacement per IV fluids 01/15 check potassium in the morning 4. Urinary tract infection -She was started on IV ciprofloxacin through the emergency department 01/15 the urine culture revealed gram-negative myrna 5. Atrial fibrillation with rate controlled-- history of -Continue to monitor rate Diagnosis/Problems: Clinical Quality Measures DVT/VTE Risk/Contraindication: Risk Factor Score Per Nursin RFS Level Per Nursing on Admit: 4+=Very High GILMA CHASE MD January 15, 2017 08:56
[2017-01-15] MEDS: PANTOPRAZOLE 40 MG/10 ML (PROTONIX) VIAL IV SCH ×2 (09:20→20:23)
[2017-01-15] MEDS: DILTIAZEM 30 MG (CARDIZEM) TAB NG SCH ×2 (09:21→20:23)
--- NOTE | 2017-01-15 09:36 | Diagnostic Imaging Report ---
INDICATION: Bowel obstruction. FINDINGS: Examination shows multiple dilated loops of small bowel with no obstructing lesion or mucosal edema evident at this time. A 24-hour delayed film shows some contrast scattered throughout nondilated colon and the changes are consistent with a partial but high-grade small bowel obstruction. IMPRESSION: Small bowel obstruction which is probably at the level of the distal ileum. No obstructing lesion is seen. Dictated by: Dictated on workstation # [id number]
[2017-01-15 12:00] VITALS: BP 187/97
--- NOTE | 2017-01-15 13:07 | Progress Note ---
Subjective Subjective/Events-last exam Patient with flatus and 2 small bm yesterday. Ng tube clamped and having nausea which was placed back on LIWS. Patient hgb stable. Patient small bowel follow through demonstrating partial sbo with transition likely in distal ileum, some contrast in colon. Patient denies any other complaints at this time. Objective Exam Vital Signs Date Time Temp Pulse Resp B/P (MAP) Pulse Ox O2 Delivery O2 Flow Rate FiO2 01/15/17 08:00 99.4 106 16 162/80 91 Nasal Cannula 1.00 01/15/17 07:16 103 01/15/17 07:05 94 1.00 01/15/17 04:45 99.2 103 20 170/87 97 Nasal Cannula 2.00 01/15/17 03:42 96 1.00 01/14/17 21:33 95 1.00 01/14/17 21:00 97 1.00 01/14/17 20:00 98.2 102 20 169/90 98 Nasal Cannula 2.00 01/14/17 18:32 96 1.00 01/14/17 16:00 98.3 99 20 161/84 94 Nasal Cannula 2.00 I & O 01/15/17 07:00 Intake Total 5200 ml Output Total 1500 ml Balance 3700 ml Capillary Refill : Less Than 3 Seconds General Appearance: No Apparent Distress (sitting in chair) HEENT: PERRL/EOMI Neck: Normal Inspection Respiratory: No Accessory Muscle Use, No Respiratory Distress Cardiovascular: Regular Rate, Rhythm Gastrointestinal: soft (incisional hernia reducible), no pulsatile mass Extremity: Non Tender Neurologic/Psychiatric: Alert, Oriented x3, Normal Mood/Affect Skin: Warm/Dry Results Lab Laboratory Tests 01/14/17 16:58: Sodium Level 140, Potassium Level 5.0, Chloride Level 97L, Carbon Dioxide Level 31, Anion Gap 12, Blood Urea Nitrogen 32H, Creatinine 2.49H, Estimat Glomerular Filtration Rate 19, BUN/Creatinine Ratio 13, Glucose Level 114H, Calcium Level 8.5 01/15/17 06:35: Sodium Level 143, Potassium Level 4.5, Chloride Level 105, Carbon Dioxide Level 26, Anion Gap 12, Blood Urea Nitrogen 29H, Creatinine 1.76H, Estimat Glomerular Filtration Rate 29, BUN/Creatinine Ratio 16, Glucose Level 98, Calcium Level 8.7 , White Blood Count 4.5, Red Blood Count 3.30L, Hemoglobin 10.5L, Hematocrit 33L , Mean Corpuscular Volume 101H, Mean Corpuscular Hemoglobin 32, Mean Corpuscular Hemoglobin Concent 32, Red Cell Distribution Width 13.5, Platelet Count 260, Mean Platelet Volume 8.3, Neutrophils (%) (Auto) 71, Lymphocytes (%) (Auto) 12, Monocytes (%) (Auto) 17H, Eosinophils (%) (Auto) 0, Basophils (%) ( Auto) 0, Neutrophils # (Auto) 3.2, Lymphocytes # (Auto) 0.5L, Monocytes # (Auto ) 0.8, Eosinophils # (Auto) 0.0, Basophils # (Auto) 0.0, Total Bilirubin 0.6, Aspartate Amino Transf (AST/SGOT) 19, Alanine Aminotransferase (ALT/SGPT) 14, Alkaline Phosphatase 147H, Total Protein 6.7, Albumin 3.8 Microbiology 01/13/17 Urine Culture - Final, Complete Klebsiella Pneumoniae Assessment/Plan Assessment/Plan Assessment/Plan nausea and vomiting partial small bowel obstruction incisional hernia occult positive ng tube contents hgb stable patient with ct scan findings consistent with small bowel obstruction had pneumobilia form stent unchanged from previous scan patient with NG tube to LIWS Small bowel follow through partial obstruction with some contrast in colon will continue with conservative management at this time. discussed small bowel follow through results with patient hope the obstruction will open up, if not we discussed surgical intervention. She wishes to proceed with conservative management at this time. Clinical Quality Measures DVT/VTE Risk/Contraindication: Risk Factor Score Per Nursin RFS Level Per Nursing on Admit: 4+=Very High PENNIE ANDRES DO January 15, 2017 13:07
[2017-01-15] MEDS: KETOROLAC 60 MG/2 ML VIAL IM PRN (13:51)
[2017-01-15 16:00] VITALS: BP 156/82
[2017-01-15 20:00] VITALS: BP 160/79
[2017-01-16] VITALS (7 sets, daily range): BP systolic 128–186; BP diastolic 77–88
[2017-01-16] MEDS: FAMOTIDINE 20MG/2ML IV (PEPCID) IVP SCH (00:03)
[2017-01-16] MEDS ORDERED: KETOROLAC 30 MG/ML VIAL ONE ×2 (01:00→01:03)
[2017-01-16] MEDS: fentaNYL INJECTION 100 MCG/2 ML AMP IVP PRN ×2 (02:24→06:53)
[2017-01-16] MEDS: CIPROFLOXACIN 400 MG/D5W 200 ML (PRE-MIX) IV SCH ×2 (02:25→17:36)
[2017-01-16] MEDS: NS W/KCL 20 MEQ/L 1,000 ML IV SCH ×2 (04:44→11:40)
[2017-01-16 06:41] LABS: BASOPHILS % (AUTO) 0 % (0-10); EOSINOPHILS # (AUTO) 0.2 10^3/uL (0.0-0.3); EOSINOPHILS % (AUTO) 4 % (0-10); LYMPHOCYTES # (AUTO) 0.8 X 10^3 (1.0-4.0); LYMPHOCYTES % (AUTO) 20 % (12-44); MEAN CORPUSCULAR HEMOGLOBIN 32 PG (25-34); MEAN CORPUSCULAR HGB CONC 31 G/DL (32-36); MEAN CORPUSCULAR VOLUME 103 FL (80-99); MEAN PLATELET VOLUME 8.3 FL (7.4-10.4); MONOCYTES # (AUTO) 0.7 X 10^3 (0.0-1.0); MONOCYTES % (AUTO) 17 % (0-12); NEUTROPHILS # (AUTO) 2.4 X 10^3 (1.8-7.8); NEUTROPHILS % (AUTO) 59 % (42-75); PLATELET COUNT 212 10^3/uL (130-400); RED BLOOD COUNT 2.72 10^6/uL (4.35-5.85); RED CELL DISTRIBUTION WIDTH 13.3 % (10.0-14.5)
[2017-01-16 07:06] LABS: CALCIUM 8.5 MG/DL (8.5-10.1); CREATININE SERUM 1.36 MG/DL (0.60-1.30); POTASSIUM 5.2 MMOL/L (3.6-5.0)
[2017-01-16] MEDS: PANTOPRAZOLE 40 MG/10 ML (PROTONIX) VIAL IV SCH ×2 (08:44→20:48)
[2017-01-16] MEDS: DILTIAZEM 30 MG (CARDIZEM) TAB NG SCH ×2 (08:45→20:48)
--- NOTE | 2017-01-16 08:59 | Progress Note ---
Subjective Subjective/Events-last exam Patient resting in bed. She reports that she is having bowel movements but she is still nauseated. She still has a NG tube to low wall. She states that she wants to go home today and discuss her situation with her family. Objective Exam Vital Signs Date Time Temp Pulse Resp B/P (MAP) Pulse Ox O2 Delivery O2 Flow Rate FiO2 01/16/17 07:35 96.5 01/16/17 07:17 94 1.00 01/16/17 07:00 126 01/16/17 04:15 96.5 82 18 163/84 97 Nasal Cannula 1.00 01/16/17 02:33 95 01/16/17 01:00 93 01/16/17 00:30 100.0 85 20 165/88 96 Nasal Cannula 1.00 01/15/17 21:04 92 01/15/17 20:20 1.00 01/15/17 20:00 97.8 98 18 160/79 93 Nasal Cannula 1.00 01/15/17 19:12 121 01/15/17 18:21 91 01/15/17 16:00 97.1 98 18 156/82 100 Nasal Cannula 1.00 01/15/17 14:30 95 01/15/17 13:12 107 01/15/17 12:00 97.6 92 18 187/97 91 Nasal Cannula 1.00 01/15/17 10:45 96 I & O 01/16/17 07:00 Intake Total 2100 ml Output Total 3675 ml Balance -1575 ml Capillary Refill : Less Than 3 Seconds General Appearance: No Apparent Distress (sitting in chair) HEENT: PERRL/EOMI Neck: Normal Inspection Respiratory: No Accessory Muscle Use, No Respiratory Distress Cardiovascular: Regular Rate, Rhythm Gastrointestinal: soft (incisional hernia reducible), no pulsatile mass, tenderness (reports soreness to her upper quadrant w/o palpation. ) Extremity: Non Tender Neurologic/Psychiatric: Alert, Oriented x3, Normal Mood/Affect Skin: Warm/Dry Results Lab Laboratory Tests Test 01/14/17 16:58 01/15/17 06:35 01/16/17 06:27 Range/Units Sodium Level 140 143 144 135-145 MMOL/L Potassium Level 5.0 4.5 5.2 H 3.6-5.0 MMOL/L Chloride Level 97 L 105 113 H 98-107 MMOL/L Carbon Dioxide Level 31 26 24 21-32 MMOL/L Anion Gap 12 12 7 5-14 MMOL/L Blood Urea Nitrogen 32 H 29 H 23 H 7-18 MG/DL Creatinine 2.49 H 1.76 H 1.36 H 0.60-1.30 MG/DL Estimat Glomerular Filtration Rate 19 29 39 BUN/Creatinine Ratio 13 16 17 Glucose Level 114 H 98 77 70-105 MG/DL Calcium Level 8.5 8.7 8.5 8.5-10.1 MG/DL White Blood Count 4.5 4.0 L 4.3-11.0 10^3/uL Red Blood Count 3.30 L 2.72 L 4.35-5.85 10^6/uL Hemoglobin 10.5 L 8.6 L 11.5-16.0 G/DL Hematocrit 33 L 28 L 35-52 % Mean Corpuscular Volume 101 H 103 H 80-99 FL Mean Corpuscular Hemoglobin 32 32 25-34 PG Mean Corpuscular Hemoglobin Concent 32 31 L 32-36 G/DL Red Cell Distribution Width 13.5 13.3 10.0-14.5 % Platelet Count 260 212 130-400 10^3/uL Mean Platelet Volume 8.3 8.3 7.4-10.4 FL Neutrophils (%) (Auto) 71 59 42-75 % Lymphocytes (%) (Auto) 12 20 12-44 % Monocytes (%) (Auto) 17 H 17 H 0-12 % Eosinophils (%) (Auto) 0 4 0-10 % Basophils (%) (Auto) 0 0 0-10 % Neutrophils # (Auto) 3.2 2.4 1.8-7.8 X 10^3 Lymphocytes # (Auto) 0.5 L 0.8 L 1.0-4.0 X 10^3 Monocytes # (Auto) 0.8 0.7 0.0-1.0 X 10^3 Eosinophils # (Auto) 0.0 0.2 0.0-0.3 10^3/uL Basophils # (Auto) 0.0 0.0 0.0-0.1 10^3/uL Total Bilirubin 0.6 0.1-1.0 MG/DL Aspartate Amino Transf (AST/SGOT) 19 5-34 U/L Alanine Aminotransferase (ALT/SGPT) 14 0-55 U/L Alkaline Phosphatase 147 H 40-136 U/L Total Protein 6.7 6.4-8.2 G/DL Albumin 3.8 3.2-4.5 G/DL Laboratory Tests 01/16/17 06:27: White Blood Count 4.0L, Red Blood Count 2.72L, Hemoglobin 8.6L, Hematocrit 28L, Mean Corpuscular Volume 103H, Mean Corpuscular Hemoglobin 32, Mean Corpuscular Hemoglobin Concent 31L, Red Cell Distribution Width 13.3, Platelet Count 212, Mean Platelet Volume 8.3, Neutrophils (%) (Auto) 59, Lymphocytes (%) (Auto) 20, Monocytes (%) (Auto) 17H, Eosinophils (%) (Auto) 4, Basophils (%) (Auto) 0, Neutrophils # (Auto) 2.4, Lymphocytes # (Auto) 0.8L, Monocytes # (Auto) 0.7, Eosinophils # (Auto) 0.2, Basophils # (Auto) 0.0, Sodium Level 144, Potassium Level 5.2H, Chloride Level 113H, Carbon Dioxide Level 24, Anion Gap 7, Blood Urea Nitrogen 23H, Creatinine 1.36H, Estimat Glomerular Filtration Rate 39, BUN/ Creatinine Ratio 17, Glucose Level 77, Calcium Level 8.5 Microbiology 01/13/17 Urine Culture - Final, Complete Klebsiella Pneumoniae Assessment/Plan Assessment/Plan Assessment/Plan nausea and vomiting partial small bowel obstruction incisional hernia UTI hgb drop. patient with NG tube to [facility]. Patient reports she wants to go home. Discussed patient with Dr. Ramírez. Darrell- Patient states she's leaving. Patient passing flatus and bm. Feeling better. Denies n/v fever sweats chills shortness of breath or chest pain. Drop in Hgb. General no acute distress heart irregular lungs nonlabored breathing abdomen less distended soft, incisional hernia reduces ext nontender assessment as above pull ng tube start clear liquids anemia continue to monitor patient wanting to leave she was explained would like to monitor hgb may need egd to further evaluate Clinical Quality Measures DVT/VTE Risk/Contraindication: Risk Factor Score Per Nursin RFS Level Per Nursing on Admit: 4+=Very High KELLEY GAGE APRN January 16, 2017 08:59 PENNIE RAMÍREZ DO January 16, 2017 17:21
--- NOTE | 2017-01-16 12:05 | Progress Note (SOAP) ---
Subjective Subjective/Events-last exam Patient states that she is feeling much better. She is very thirsty this AM. Dr Ramírez in room this AM and has ordered CLD and removal of NG tube. Patient states that she is wanting to go home today. Passing small BM and flatus Date seen by provider: January 16, 2017 Objective Exam Last Set of Vital Signs Vital Signs Date Time Temp Pulse Resp B/P (MAP) Pulse Ox O2 Delivery O2 Flow Rate FiO2 01/16/17 10:28 94 2.00 01/16/17 08:00 97.5 91 20 186/80 Nasal Cannula Capillary Refill : Less Than 3 Seconds I&O Intake and Output 01/16/17 00:00 Intake Total 2250 ml Output Total 3750 ml Balance -1500 ml Intake Oral 50 ml IV Total 2200 ml Output Urine Total 1300 ml Gastric Drainage Total 2450 ml # Bowel Movements 2 General: Alert, Oriented X3, Cooperative, No Acute Distress HEENT: Other (NG tube in place, dry Mucus membranes) Lungs: Clear to Auscultation, Normal Air Movement Heart: Regular Rate, No Murmurs Abdomen: Soft, No Masses Extremities: No Edema, No Tenderness/Swelling Skin: No Rashes, No Breakdown Neuro: Normal Speech, Strength at 5/5 X4 Ext, Sensation Intact, Cranial Nerves 3-12 NL Results/Procedures Lab Laboratory Tests 01/16/17 06:27: White Blood Count 4.0L, Red Blood Count 2.72L, Hemoglobin 8.6L, Hematocrit 28L, Mean Corpuscular Volume 103H, Mean Corpuscular Hemoglobin 32, Mean Corpuscular Hemoglobin Concent 31L, Red Cell Distribution Width 13.3, Platelet Count 212, Mean Platelet Volume 8.3, Neutrophils (%) (Auto) 59, Lymphocytes (%) (Auto) 20, Monocytes (%) (Auto) 17H, Eosinophils (%) (Auto) 4, Basophils (%) (Auto) 0, Neutrophils # (Auto) 2.4, Lymphocytes # (Auto) 0.8L, Monocytes # (Auto) 0.7, Eosinophils # (Auto) 0.2, Basophils # (Auto) 0.0, Sodium Level 144, Potassium Level 5.2H, Chloride Level 113H, Carbon Dioxide Level 24, Anion Gap 7, Blood Urea Nitrogen 23H, Creatinine 1.36H, Estimat Glomerular Filtration Rate 39, BUN/ Creatinine Ratio 17, Glucose Level 77, Calcium Level 8.5 Microbiology 01/13/17 Urine Culture - Final, Complete Klebsiella Pneumoniae Assessment/Plan Assessment/Plan Admission Dx 1. Small bowel obstruction 2. Acute renal insufficiency--as evident by elevated creatinine 3. Hypokalemia 4. Urinary tract infection 5. Atrial fibrillation with rate controlled-- history of Plan 1. Small bowel obstruction - Seen by Dr Ramírez this AM, advance diet to CLD and remove NG tube - Will continue to monitor patient as diet is advanced 2. Acute renal insufficiency--as evident by elevated creatinine -Creatinine followed carefully. -Rehydration with IV fluids 01/15 creatinine has improved to 1.76 01/16 Cr stabilized 3. Macrocytic Anemia - Check Iron, B12 and folate levels - CBC in AM 4. Hyperkalemia - Repeat BMP in AM, change IV fluids 5. Urinary tract infection -She was started on IV ciprofloxacin through the emergency department 01/15 the urine culture revealed gram-negative myrna 6. Atrial fibrillation with rate controlled-- history of -Continue to monitor rate FEN: CLD DVT PPX: Lovenox Dispo: Continue to monitor anemia and kidney function Diagnosis/Problems: Clinical Quality Measures DVT/VTE Risk/Contraindication: Risk Factor Score Per Nursin RFS Level Per Nursing on Admit: 4+=Very High SULLY CARABALLO MD January 16, 2017 12:05
[2017-01-16] MEDS: NS IV 1000 ML 1,000 ML IV SCH (12:47)
[2017-01-16 12:58] LABS: CALCIUM 8.8 MG/DL (8.5-10.1); CREATININE SERUM 1.25 MG/DL (0.60-1.30); POTASSIUM 5.2 MMOL/L (3.6-5.0)
[2017-01-16] MEDS: KETOROLAC 60 MG/2 ML VIAL IM PRN ×2 (13:20→20:52)
--- NOTE | 2017-01-16 16:26 | Discharge Summary ---
Diagnosis/Chief Complaint Date of Admission January 14, 2017 at 1:15 am Date of Discharge Left AMA 01/16/17 Admission Diagnosis Admission Diagnosis 1. Small bowel obstruction 2. Acute renal insufficiency--as evident by elevated creatinine 3. Hypokalemia 4. Urinary tract infection 5. Atrial fibrillation with rate controlled-- history of Discharge Diagnosis See Above with addition Macrocytic Anemia Hyperkalemia Chief Complaint/HPI Chief Complaint/HPI 66-year-old female presents to the emergency department during the evening of January 13, 2017 with reports of nausea and vomiting. She is a patient of [facility] and does report she sees Dr. Silva. Apparently she has also had diarrhea and the symptoms started during the evening of day of presentation. Patient does have a history of gastrointestinal bleed. She does have history of atrial fibrillation but is not taking any anticoagulation therapy currently. There is no reports of any fever. She denies any burning on urination. Discharge Summary-Simple/Stand Consultations General Surgery: Dr Ramírez Discharge Physical Examination Allergies: Coded Allergies: Penicillins (Unverified Allergy, Unknown, 04/30/16) codeine (Unverified Allergy, Unknown, dizziness, 05/03/16) pt reports she has had morphine before and has had no problems with it Uncoded Allergies: MYACIN (Allergy, Unknown, 09/06/15) Vitals & I&Os Vital Sign - Last 12Hours Date Time Temp Pulse Resp B/P (MAP) Pulse Ox O2 Delivery O2 Flow Rate FiO2 01/16/17 14:47 96 1.00 01/16/17 13:55 97.5 01/16/17 13:00 104 01/16/17 12:00 20 164/87 Nasal Cannula Intake and Output 01/15/17 23:59 Intake Total 1050 ml Output Total 3250 ml Balance -2200 ml Hospital Course See final discharge diagnosis. Discussion & Recommendations 66 yo F that was admitted with SBO. She was treated conservatively with NG and NPO. Patient was then transitioned to [facility] and told staff that she was ready to leave. Patient had drop in hemoglobin and Dr Ramírez and I were in agreement that patient needed to be observed for any signs of further drop in hemoglobin or bleeding. Patient wanted to leave hospital and decided to leave AMA after considering her options. Discharge Condition at discharge Left AMA Instructions to patient/family Please see electonic discharge instructions given to patient. Discharge Medications Reviewed and agree with Discharge Medication list on patient's Discharge Instruction sheet Clinical Quality Measures DVT/VTE Risk/Contraindication: Risk Factor Score Per Nursin RFS Level Per Nursing on Admit: 4+=Very High Copy Copies To 1: MEGAN RHOADES MD, HOLLY R MD January 16, 2017 4:26 pm
[2017-01-17] VITALS: BP 167/77
[2017-01-17] MEDS: FAMOTIDINE 20MG/2ML IV (PEPCID) IVP SCH (01:09)
[2017-01-17] MEDS: NS IV 1000 ML 1,000 ML IV SCH (01:09)
[2017-01-17 04:00] VITALS: BP 155/85
[2017-01-17] MEDS: CIPROFLOXACIN 400 MG/D5W 200 ML (PRE-MIX) IV SCH (05:04)
[2017-01-17 05:27] LABS: BASOPHILS % (AUTO) 0 % (0-10); EOSINOPHILS # (AUTO) 0.3 10^3/uL (0.0-0.3); EOSINOPHILS % (AUTO) 5 % (0-10); LYMPHOCYTES % (AUTO) 20 % (12-44); MEAN CORPUSCULAR HEMOGLOBIN 32 PG (25-34); MEAN CORPUSCULAR HGB CONC 32 G/DL (32-36); MEAN CORPUSCULAR VOLUME 100 FL (80-99); MEAN PLATELET VOLUME 8.4 FL (7.4-10.4); MONOCYTES # (AUTO) 0.7 X 10^3 (0.0-1.0); MONOCYTES % (AUTO) 14 % (0-12); NEUTROPHILS # (AUTO) 2.9 X 10^3 (1.8-7.8); NEUTROPHILS % (AUTO) 60 % (42-75); PLATELET COUNT 204 10^3/uL (130-400); RED BLOOD COUNT 2.67 10^6/uL (4.35-5.85); WHITE BLOOD COUNT 4.8 10^3/uL (4.3-11.0)
[2017-01-17 05:53] LABS: ALBUMIN 3.2 G/DL (3.2-4.5); BILIRUBIN,TOTAL 0.4 MG/DL (0.1-1.0); CALCIUM 8.5 MG/DL (8.5-10.1); CREATININE SERUM 1.11 MG/DL (0.60-1.30); POTASSIUM 4.1 MMOL/L (3.6-5.0); TOTAL PROTEIN 5.4 G/DL (6.4-8.2)
[2017-01-17 08:00] VITALS: BP 153/92
[2017-01-17] MEDS: PANTOPRAZOLE 40 MG/10 ML (PROTONIX) VIAL IV SCH (08:07)
[2017-01-17] MEDS: KETOROLAC 60 MG/2 ML VIAL IM PRN (08:07)
[2017-01-17] MEDS: DILTIAZEM 30 MG (CARDIZEM) TAB NG SCH (08:09)
--- NOTE | 2017-01-17 11:21 | Progress Note ---
Subjective Subjective/Events-last exam patient sleeping in bed, easily aroused. Even respirations. No distress. Denies any N/V . Denies any ABD pain. Objective Exam Vital Signs Date Time Temp Pulse Resp B/P (MAP) Pulse Ox O2 Delivery O2 Flow Rate FiO2 01/17/17 08:40 97.2 01/17/17 08:07 97.2 01/17/17 08:00 98.0 67 20 153/92 98 Nasal Cannula 1.00 01/17/17 08:00 1.00 01/17/17 07:51 94 01/17/17 07:00 67 01/17/17 04:00 97.2 69 18 155/85 97 Nasal Cannula 1.00 01/17/17 01:00 86 01/17/17 00:00 98.7 67 20 167/77 92 Nasal Cannula 1.00 01/16/17 21:00 1.00 01/16/17 20:06 96.9 82 18 170/88 98 Nasal Cannula 1.00 01/16/17 19:00 102 01/16/17 16:00 97.0 88 20 168/77 96 Nasal Cannula 1.00 01/16/17 14:47 96 1.00 01/16/17 13:20 97.5 01/16/17 13:00 104 01/16/17 12:00 98.0 88 20 164/87 96 Nasal Cannula 1.00 I & O 01/17/17 07:00 Intake Total 2508 ml Output Total 2350 ml Balance 158 ml Capillary Refill : Less Than 3 Seconds General Appearance: No Apparent Distress HEENT: PERRL/EOMI Neck: Normal Inspection Respiratory: No Accessory Muscle Use, No Respiratory Distress Cardiovascular: Regular Rate, Rhythm Gastrointestinal: soft, no pulsatile mass Extremity: Non Tender Neurologic/Psychiatric: Alert, Oriented x3, Normal Mood/Affect Skin: Warm/Dry Results Lab Laboratory Tests Test 01/16/17 06:27 01/16/17 12:30 01/17/17 04:33 Range/Units White Blood Count 4.0 L 4.8 4.3-11.0 10^3/uL Red Blood Count 2.72 L 2.67 L 4.35-5.85 10^6/uL Hemoglobin 8.6 L 8.5 L 11.5-16.0 G/DL Hematocrit 28 L 27 L 35-52 % Mean Corpuscular Volume 103 H 100 H 80-99 FL Mean Corpuscular Hemoglobin 32 32 25-34 PG Mean Corpuscular Hemoglobin Concent 31 L 32 32-36 G/DL Red Cell Distribution Width 13.3 13.0 10.0-14.5 % Platelet Count 212 204 130-400 10^3/uL Mean Platelet Volume 8.3 8.4 7.4-10.4 FL Neutrophils (%) (Auto) 59 60 42-75 % Lymphocytes (%) (Auto) 20 20 12-44 % Monocytes (%) (Auto) 17 H 14 H 0-12 % Eosinophils (%) (Auto) 4 5 0-10 % Basophils (%) (Auto) 0 0 0-10 % Neutrophils # (Auto) 2.4 2.9 1.8-7.8 X 10^3 Lymphocytes # (Auto) 0.8 L 1.0 1.0-4.0 X 10^3 Monocytes # (Auto) 0.7 0.7 0.0-1.0 X 10^3 Eosinophils # (Auto) 0.2 0.3 0.0-0.3 10^3/uL Basophils # (Auto) 0.0 0.0 0.0-0.1 10^3/uL Sodium Level 144 139 132 L 135-145 MMOL/L Potassium Level 5.2 H 5.2 H 4.1 3.6-5.0 MMOL/L Chloride Level 113 H 108 H 103 98-107 MMOL/L Carbon Dioxide Level 24 23 21 21-32 MMOL/L Anion Gap 7 8 8 5-14 MMOL/L Blood Urea Nitrogen 23 H 20 H 14 7-18 MG/DL Creatinine 1.36 H 1.25 1.11 0.60-1.30 MG/DL Estimat Glomerular Filtration Rate 39 43 49 BUN/Creatinine Ratio 17 16 13 Glucose Level 77 75 87 70-105 MG/DL Calcium Level 8.5 8.8 8.5 8.5-10.1 MG/DL Total Bilirubin 0.4 0.1-1.0 MG/DL Aspartate Amino Transf (AST/SGOT) 17 5-34 U/L Alanine Aminotransferase (ALT/SGPT) 12 0-55 U/L Alkaline Phosphatase 117 40-136 U/L Total Protein 5.4 L 6.4-8.2 G/DL Albumin 3.2 3.2-4.5 G/DL Laboratory Tests 01/16/17 12:30: Sodium Level 139, Potassium Level 5.2H, Chloride Level 108H, Carbon Dioxide Level 23, Anion Gap 8, Blood Urea Nitrogen 20H, Creatinine 1.25, Estimat Glomerular Filtration Rate 43, BUN/Creatinine Ratio 16, Glucose Level 75, Calcium Level 8.8 01/17/17 04:33: Sodium Level 132L, Potassium Level 4.1, Chloride Level 103, Carbon Dioxide Level 21, Anion Gap 8, Blood Urea Nitrogen 14, Creatinine 1.11, Estimat Glomerular Filtration Rate 49, BUN/Creatinine Ratio 13, Glucose Level 87, Calcium Level 8.5, White Blood Count 4.8, Red Blood Count 2.67L, Hemoglobin 8.5L , Hematocrit 27L, Mean Corpuscular Volume 100H, Mean Corpuscular Hemoglobin 32, Mean Corpuscular Hemoglobin Concent 32, Red Cell Distribution Width 13.0, Platelet Count 204, Mean Platelet Volume 8.4, Neutrophils (%) (Auto) 60, Lymphocytes (%) (Auto) 20, Monocytes (%) (Auto) 14H, Eosinophils (%) (Auto) 5, Basophils (%) (Auto) 0, Neutrophils # (Auto) 2.9, Lymphocytes # (Auto) 1.0, Monocytes # (Auto) 0.7, Eosinophils # (Auto) 0.3, Basophils # (Auto) 0.0, Total Bilirubin 0.4, Aspartate Amino Transf (AST/SGOT) 17, Alanine Aminotransferase ( ALT/SGPT) 12, Alkaline Phosphatase 117, Total Protein 5.4L, Albumin 3.2 Microbiology 01/13/17 Urine Culture - Final, Complete Klebsiella Pneumoniae Assessment/Plan Assessment/Plan Assessment/Plan nausea and vomiting partial small bowel obstruction incisional hernia UTI hgb stable at 8.7. Continue on clear liquid and increase diet as tolerated. Passing flatus and having BM. Possible discharge today. We will see patient in clinic in 2 weeks. Possible out patient endoscopy [place]- patient feeling well. Passing flatus and bm. Tolerating liquids. Denies abdominal pain n/v fever sweats chills shortness of breath or chest pain. Hgb stable. Wanting to go home. No acute distress heart reg lungs nonlabored abdomen soft nontender incisional hernia reducible ext nontender assessment as above and hemoccult + stool Protonix BID for 2 weeks then daily Advance diet as tolerates okay to dc home with close follow up will see in two weeks Clinical Quality Measures DVT/VTE Risk/Contraindication: Risk Factor Score Per Nursin RFS Level Per Nursing on Admit: 4+=Very High KELLEY GAGE APRN January 17, 2017 11:21 PENNIE ANDRES DO January 17, 2017 15:03
[2017-01-17] MEDS ORDERED: PANT40TA2 PO ×2 (11:37→11:49)
[2017-01-17] MEDS ORDERED: CIPR-225 PO (11:37)
--- NOTE | 2017-01-17 11:40 | Discharge Instructions ---
Discharge [facility] Discharge Medications New, Converted or Re-Newed RX: Transmitted to Pharmacy New Medications: Ciprofloxacin HCl (Cipro) 500 Mg Tablet 500 MG PO BID for 3 Days, #6 TAB Pantoprazole Sodium (Protonix) 40 Mg Tablet.dr 40 MG PO DAILY for 30 Days, #30 TAB Continued Medications: Albuterol Sulfate (Ventolin Hfa) 18 Gm Hfa.aer.ad 2 PUFF IH Q4H PRN for SHORTNESS OF BREATH, INHALER Diltiazem HCl (Diltiazem HCl) 30 Mg Tablet 30 MG PO BID, TAB Furosemide (Furosemide) 20 Mg Tablet 20 MG PO DAILY, TAB Hydrocortisone (Hydrocortisone) 10 Mg Tablet 10 MG PO BID, TAB Lactulose (Enulose) 10 Gm/15 Ml Solution 15 ML PO BID PRN for CONSTIPATION-3RD LINE, EA Magnesium Oxide (Magnesium Oxide) 400 Mg Tablet 400 MG PO BID, TAB Melatonin (Melatonin) 3 Mg Tablet 3 MG PO HS PRN for SLEEP, TAB Sucralfate (Sucralfate) 1 Gm Tablet 1 GM PO BID, TAB Tramadol HCl (Tramadol HCl) 50 Mg Tablet 50 MG PO Q8H PRN for PAIN, TAB Patient Instructions Goal/Follow Up Appt: You have a follow up with Dr Rhoades January 24 @ 140pm Patient Instructions: Continue a soft easily digested diet Make sure you are having bowel movements daily Return to The Hospital For: Severe abdominal pain Chest pain Shortness of breath Activity & Diet Discharge Diet: Eat Small Frequent Meals, Soft Diet Activity as Tolerated: Yes Copy Copies To 1: MEGAN RHOADES MD, HOLLY R MD January 17, 2017 11:39
[2017-01-17 12:00] VITALS: BP 128/82
[2017-01-18 08:41] LABS: FOLIC ACID 13.7 ng/mL (1.5-24.0)
== END 2017-01-17 12:00 | disposition home or self-care (01) | DRG 327 ==
LOC: EDUNIT# 23:25 → ER 23:26 → 4TH 01-14 01:15
PROVIDERS: ADMIT Family Medicine; ATTEND Family Medicine
PROC: 0D9470Z Drainage of Esophagogastric Junction with Drainage Device, Via Natural or Artificial Opening (ICD-10-PCS; principal; 2017-01-14)
DX: K56.60 Unspecified intestinal obstruction (principal); N39.0 Urinary tract infection, site not specified; K92.0 Hematemesis; N28.9 Disorder of kidney and ureter, unspecified; K43.2 Incisional hernia without obstruction or gangrene; E87.6 Hypokalemia; R41.0 Disorientation, unspecified; I48.2 Chronic atrial fibrillation; D53.9 Nutritional anemia, unspecified; R06.4 Hyperventilation; J44.9 Chronic obstructive pulmonary disease, unspecified; J45.909 Unspecified asthma, uncomplicated; I10 Essential (primary) hypertension; K76.9 Liver disease, unspecified; M81.0 Age-related osteoporosis without current pathological fracture; M19.90 Unspecified osteoarthritis, unspecified site; M06.9 Rheumatoid arthritis, unspecified; I87.2 Venous insufficiency (chronic) (peripheral); E87.5 Hyperkalemia; F17.290 Nicotine dependence, other tobacco product, uncomplicated; B96.89 Other specified bacterial agents as the cause of diseases classified elsewhere
CPT/HCPCS: 36415; 51702; 71010; 74176; 74250; 80048; 80053; 80306; 80320; 81000; 82140; 82271; 82607; 82728; 82746; 83540; 83690; 83735; 85007; 85025; 85027; 85610; 85730; 86141; 87077; 87088; 87186; 94664; 94760; 96361; 96374; 96375; 96376

== ENCOUNTER → 2018-07-17 | Outpatient (CLI) | payer MEDICARE, MEDICAID ==
[~2018-07-17] MED LIST changes: +ACHD5005 PO; +CIPR-225 PO; -HYDR-3812 PO; +OXYC-529 PO; -OXYC5TAB71 PO; +PANT40TA2 PO; -THIA100T7 PO; +THIA100T80 PO
--- NOTE | 2018-07-17 17:18 | Diagnostic Imaging Report ---
INDICATION: 28-[id number]-[id number] history of smoking. COMPARISON: None. TECHNIQUE: Routine low-dose noncontrast CT of the chest was performed for screening purposes. FINDINGS: Evaluation of the lung hopkins demonstrates multiple micronodular densities. These are as follows: * 5 mm micronodular density within the lingula of the left upper lobe (image 133, series 2). * 3-4 mm subpleural micronodule associated with the anterolateral margins of the minor fissure on the right (image 150, series 2). * Punctate 2 mm micronodule within the subpleural posterior margins of the right lower lobe (image 213, series 2). * 4 mm subpleural micronodule posteriorly slightly more superiorly also within the right lower lobe (image 185, series 2). A few benign calcified granuloma are also noted scattered throughout the right lower lobe. There is no focal consolidation, pleural effusion, nor pneumothorax. Cardiomediastinal structures show normal heart size. There is no large pericardial effusion. There is moderate calcified coronary atherosclerosis, particularly involving the right coronary artery. There may be an indwelling metallic stent. Evaluation is obscured by motion artifact. Several benign calcified right hilar lymph nodes are noted. Otherwise, no pathologically enlarged or morphologically abnormal adenopathy is seen within the mediastinum, jennifer, nor axilla on this noncontrast exam. Bony structures show no acute abnormalities. Included portions of the upper abdomen show partially visualized midline ventral hernia containing portion of the transverse colon. Pneumobilia is also noted within the left lobe. IMPRESSION: 1. Multiple bilateral pulmonary micronodules, largest of which measures approximately 5 mm in diameter. Continued follow up with annual low dose CT chest is recommended. 2. Advanced calcified coronary atherosclerosis. 3. Benign calcified granulomatous disease of the right lung. 4. Partially visualized midline ventral hernia within the upper abdomen. LungRads: 2-S Modifiers: As above. Dictated by: Dictated on workstation # [id number]
--- NOTE | 2018-07-18 12:15 | Diagnostic Imaging Report ---
INDICATION: Routine screening. COMPARISON: Comparison is made with prior mammogram from 06/28/2012. TECHNIQUE: 2D and 3D bilateral screening mammography was performed with computer-aided detection (CAD) system. FINDINGS: Both breasts are primarily involutional. Extensive vascular calcifications are seen throughout both breasts. No mass or malignant appearing microcalcifications are seen. The axillae are unremarkable. IMPRESSION: No mammographic features suspicious for malignancy are identified. ACR BI-RADS Category 1: Negative. Result letter will be mailed to the patient. Note: At least 10% of breast cancer is not imaged by mammography. Dictated by: Dictated on workstation # [id number]
== END ==
LOC: RAD 15:09
PROVIDERS: ATTEND Internal Medicine
DX: Z12.31 Encounter for screening mammogram for malignant neoplasm of breast (principal); Z12.2 Encounter for screening for malignant neoplasm of respiratory organs; I25.10 Atherosclerotic heart disease of native coronary artery without angina pectoris; D71 Functional disorders of polymorphonuclear neutrophils; R91.8 Other nonspecific abnormal finding of lung field
CPT/HCPCS: 77067

== ENCOUNTER → 2019-06-20 | Outpatient (CLI) | payer MEDICARE, MEDICAID ==
[~2019-06-20] MED LIST changes: +HYDR-3641 PO; -HYDR10TA13 PO
== END ==
LOC: CARD 14:07
PROVIDERS: ATTEND Internal Medicine Cardiovascular Disease
DX: I35.8 Other nonrheumatic aortic valve disorders (principal); Q21.1 Atrial septal defect; I11.9 Hypertensive heart disease without heart failure; I48.91 Unspecified atrial fibrillation; Z72.0 Tobacco use
CPT/HCPCS: 93306

== ENCOUNTER → 2019-07-10 | Outpatient (CLI) | payer MEDICARE, MEDICAID ==
[~2019-07-10] VITALS: Ht 163 cm; Wt 75.0 kg
[~2019-07-10] MED LIST changes: +CATHETER FLUSH 10 ML SYR IV PRN; +REGADENOSON 0.4 MG/5 ML SYR (LEXISCAN) IV ONE
[2019-07-10 09:41] LABS: ALBUMIN 3.9 GM/DL (3.2-4.5); BILIRUBIN,TOTAL 0.4 MG/DL (0.1-1.0); CALCIUM 10.3 MG/DL (8.5-10.1); CREATININE SERUM 1.7 MG/DL (0.60-1.30); POTASSIUM 4.1 MMOL/L (3.6-5.0); TOTAL PROTEIN 6.9 GM/DL (6.4-8.2)
[2019-07-10 09:56] VITALS: BP 137/93
--- NOTE | 2019-07-10 17:35 | STRESS TEST ---
DATE OF SERVICE: 07/10/2019 LEXISCAN MYOVIEW STRESS TEST REPORT Baseline heart rate is 79, baseline blood pressure 184/95. Baseline EKG is atrial fibrillation with no ischemic changes. In summary, the patient was injected with 10.75 mCi of technetium-99 Myoview and the resting images were obtained. Then, the patient received 0.4 mg of Lexiscan followed by 31.2 mCi of technetium-99 Myoview. Throughout the test, there were no EKG changes. The resting and stress images were reviewed and compared in the short axis, horizontal long axis, and vertical long axis views. Review of the images showed the breast attenuation with no significant ischemia or infarction. SSS is 3, SDS 2, TID value 1.02. On the gated images, the left ventricle appeared to be normal size with normal contractility. Calculated ejection fraction 54%, gated images are unreliable due to underlying atrial fibrillation. CONCLUSION: 1. The patient tolerated Lexiscan well. 2. Baseline atrial fibrillation persisted throughout test. 3. Typical female pattern with no ischemia or infarction on SPECT images. 4. Normal left ventricular size with normal contractility. Calculated ejection fraction 54%, gated images are unreliable due to underlying atrial fibrillation. Job ID: [id number] DocumentID: [id number] Dictated Date: 07/10/2019 15:06:43 Pearler Date: 07/10/2019 17:34:07 Dictated By: GIANCARLO MATIAS MD
== END ==
LOC: CARD 08:23
PROVIDERS: ATTEND Internal Medicine Cardiovascular Disease
DX: I48.91 Unspecified atrial fibrillation (principal); I10 Essential (primary) hypertension; Z72.0 Tobacco use
CPT/HCPCS: 36415; 78452; 80053; 80061; 84443; 93017

== ENCOUNTER 2019-08-03 08:35 | Inpatient (IN) | payer MEDICARE, MEDICAID ==
[~2019-08-03] VITALS: Ht 162.6 cm; Wt 80.5 kg
[~2019-08-03 08:35] MED LIST changes: -CATHETER FLUSH 10 ML SYR IV PRN; -REGADENOSON 0.4 MG/5 ML SYR (LEXISCAN) IV ONE
[2019-08-03] MEDS ORDERED: ONDANSETRON 4 MG/2 ML (SDV) Z0FRAN IVP ONE (08:45)
[2019-08-03] MEDS ORDERED: FAMOTIDINE 20MG/2ML IV (PEPCID) IVP ONE (08:45)
[2019-08-03] MEDS ORDERED: NS IV 1000 ML 1,000 ML IV ONE (08:46)
[2019-08-03] MEDS ORDERED: fentaNYL INJECTION 100 MCG/2 ML AMP IVP ONE ×3 (09:00→12:45)
[2019-08-03] MEDS ORDERED: PROMETHAZINE INJ 25 MG/ML (PHENERGAN) AMP IVP ONE ×2 (09:00→11:00)
[2019-08-03 09:17] LABS: BASOPHILS % (AUTO) 0 % (0-10); EOSINOPHILS % (AUTO) 0 % (0-10); HEMATOCRIT 29 % (35-52); HEMOGLOBIN 9.3 G/DL (11.5-16.0); LYMPHOCYTES # (AUTO) 0.3 X 10^3 (1.0-4.0); LYMPHOCYTES % (AUTO) 7 % (12-44); MEAN CORPUSCULAR HEMOGLOBIN 29 PG (25-34); MEAN CORPUSCULAR HGB CONC 32 G/DL (32-36); MEAN CORPUSCULAR VOLUME 92 FL (80-99); MEAN PLATELET VOLUME 8.9 FL (7.4-10.4); MONOCYTES # (AUTO) 0.9 X 10^3 (0.0-1.0); MONOCYTES % (AUTO) 21 % (0-12); NEUTROPHILS # (AUTO) 3.3 X 10^3 (1.8-7.8); NEUTROPHILS % (AUTO) 73 % (42-75); PLATELET COUNT 371 10^3/uL (130-400); WHITE BLOOD COUNT 4.5 10^3/uL (4.3-11.0)
[2019-08-03 09:37] LABS: ALBUMIN 3.9 GM/DL (3.2-4.5); BILIRUBIN,TOTAL 0.8 MG/DL (0.1-1.0); CALCIUM 10.1 MG/DL (8.5-10.1); CREATININE SERUM 1.2 MG/DL (0.60-1.30); MAGNESIUM 1.9 MG/DL (1.6-2.4); POTASSIUM 3.5 MMOL/L (3.6-5.0); TOTAL PROTEIN 6.5 GM/DL (6.4-8.2)
[2019-08-03 09:43] LABS: BAND NEUTROPHILS 0 %; LYMPHOCYTES % (MANUAL) 8 %; MONOCYTES % (MANUAL) 16 %; NEUTROPHILS % (MANUAL) 76 %
[2019-08-03 09:44] LABS: BASOPHILS % (MANUAL) 0 %; EOSINOPHILS % (MANUAL) 0 %; RBC MORPH NORMAL
--- NOTE | 2019-08-03 11:04 | Diagnostic Imaging Report ---
PROCEDURE: CT abdomen and pelvis without contrast. TECHNIQUE: Multiple contiguous axial images were obtained through the abdomen and pelvis without the use of intravenous contrast. Auto Exposure Controls were utilized during the CT exam to meet ALARA standards for radiation dose reduction. INDICATION: Pain. COMPARISON: 01/14/2017. FINDINGS: There is a chronic nonobstructing supraumbilical ventral abdominal wall hernia comprised of portions of the middle third of the transverse colon. No inflammatory changes within the hernia sac. Hernial orifice is about 5 cm in diameter, unchanged. There are however findings of distal small bowel obstruction. There are decompressed terminal ileal loops in the right lower quadrant. The small bowel proximally through the level of the stomach and duodenum is dilated with differential air-fluid level. Small bowel diameter was up to 4 cm. Transition at the midline near the level of the umbilicus; however, etiology is not defined. This is presumed to stricture or adhesion. There is post interventional pneumobilia within the liver as a chronic finding. There is chronic splenic granulomatous disease as well as chronic mesenteric calcifications. Urinary tracts are nondilated. The adrenals are negative. The pancreas appeared nonacute. There is a small volume pelvic free fluid without loculated collection or abscess. There is no free air. The urinary bladder is unremarkable. There is a replaced right hip with some overlying soft tissue infiltration and few bubbles of soft tissue gas which may be on a postsurgical basis or reflect injection. No acute appearing bony pathology. There is some old rib deformities on the left, chronic. The lung base is nonacute. IMPRESSION: 1. Findings presumed to reflect recurrence of distal small bowel obstruction. Transition at the midline near the level of the umbilicus without an obstructing lesion. Findings suspicious for adhesions or stricture as the etiology. 2. No perforation. There is small volume pelvic free fluid. There is no free air or abscess. 3. Nonobstructing supraumbilical ventral abdominal wall hernia comprised of a segment of mid transverse colon. This is a stable finding. 4. Hepatosplenic granulomata. There are right upper quadrant stents extending into the proximal duodenum, all unchanged. There is a small hiatal hernia. 5. Apparent recent postsurgical changes to the right hip. Dictated by: Dictated on workstation # [id number]
--- NOTE | 2019-08-03 11:11 | ED Abdominal Pain ---
General Chief Complaint: Abdominal/GI Problems Stated Complaint: N/V Source of Information: Patient Exam Limitations: No Limitations History of Present Illness Date Seen by Provider: Aug 03, 2019 Time Seen by Provider: 08:35 Initial Comments This 68-year-old woman presents to the emergency room via EMS with generalized abdominal pain and intense nausea that started in the night. She was dismissed from the hospital on July 31 after having a right hip replacement. She has not been vomiting but she is intensely nauseated. She denies fever, vomiting, or urinary changes. She has had a few bowel movements since discharge from the hospital. Allergies and Home Medications Allergies Coded Allergies: Penicillins (Unverified Allergy, Unknown, 04/30/16) codeine (Unverified Allergy, Unknown, dizziness, 05/03/16) pt reports she has had morphine before and has had no problems with it Uncoded Allergies: MYACIN (Allergy, Unknown, 09/06/15) Home Medications Albuterol Sulfate 18 Gm Hfa.aer.ad, 2 PUFF IH Q4H PRN for SHORTNESS OF BREATH, (Reported) Ciprofloxacin HCl 500 Mg Tablet, 500 MG PO BID Prescribed by: SULLY CARABALLO on 01/17/17 1137 Diltiazem HCl 30 Mg Tablet, 30 MG PO BID, (Reported) Furosemide 20 Mg Tablet, 20 MG PO DAILY, (Reported) Hydrocortisone 10 Mg Tablet, 10 MG PO BID, (Reported) Lactulose 10 Gm/15 Ml Solution, 15 ML PO BID PRN for CONSTIPATION-3RD LINE, (Reported) Magnesium Oxide 400 Mg Tablet, 400 MG PO BID, (Reported) Melatonin 3 Mg Tablet, 3 MG PO HS PRN for SLEEP, (Reported) Pantoprazole Sodium 40 Mg Tablet.dr, 40 MG PO DAILY Take protonix 40 mg twice a day for two weeks and then once a day after that Prescribed by: KELLEY OSULLIVAN NWIlda on 01/17/17 1149 Sucralfate 1 Gm Tablet, 1 GM PO BID, (Reported) Tramadol HCl 50 Mg Tablet, 50 MG PO Q8H PRN for PAIN, (Reported) Patient Home Medication List Home Medication List Reviewed: Yes Review of Systems Review of Systems Constitutional: no symptoms reported EENTM: No Symptoms Reported Respiratory: No Symptoms Reported Cardiovascular: No Symptoms Reported Gastrointestinal: See HPI Genitourinary: No Symptoms Reported Musculoskeletal: see HPI Skin: no symptoms reported Psychiatric/Neurological: No Symptoms Reported Endocrine: No Symptoms Reported Hematologic/Lymphatic: No Symptoms Reported Past Djhoqkr-Cykkbm-Otpbbk Hx Past Med/Social Hx: Reviewed Nursing Past Med/Soc Hx Patient Social History Alcohol Use: Denies Use Alcohol Beverage of Choice: Beer Recreational Drug Use: No Drug of Choice: none Smoking Status: Never a Smoker Type Used: Electronic/Vapor Recent Foreign Travel: No Contact w/Someone Who Travel: No Recent Hopitalizations: No Immunizations Up To Date Tetanus Booster (TDap): More than 5yrs Date of Pneumonia Vaccine: Aug 23, 2007 Seasonal Allergies Seasonal Allergies: No Past Medical History Surgeries: Yes (TONSILS 57,BILAT EARS , &,HYSTERECTOMY/APPY ) Appendectomy, Section, Ear Surgery, Gallbladder, Hysterectomy, Oophorectomy, Tonsillectomy Respiratory: Yes Asthma, COPD, Emphysema Currently Using CPAP: No Currently Using BIPAP: No Cardiac: Yes Atrial Fibrillation, Chronic Edema/Swelling, Hypertension Neurological: No Reproductive Disorders: Yes 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 ) Adverse Reaction/Blood Tranf: No Family Medical History Cardiovascular disease 19 MOTHER (cabg) Neoplasm 19 FATHER (multiple myloma) Physical Exam Vital Signs Vital Signs - First Documented 08/03/19 08:39 Temp 36.6 Pulse 93 Resp 14 B/P (MAP) 176/100 (125) O2 Delivery Room Air Capillary Refill : Height/Weight/BMI Height: 5'4.00" Weight: 154lbs. 4.0oz. 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, no motor/sensory deficits, alert, normal mood/affect, oriented x 3 Skin: normal color, warm/dry Progress/Results/Core Measures Results/Orders Lab Results Laboratory Tests Test 08/03/19 09:09 Range/Units White Blood Count 4.5 4.3-11.0 10^3/uL Red Blood Count 3.17 L 4.35-5.85 10^6/uL Hemoglobin 9.3 L 11.5-16.0 G/DL Hematocrit 29 L 35-52 % Mean Corpuscular Volume 92 80-99 FL Mean Corpuscular Hemoglobin 29 25-34 PG Mean Corpuscular Hemoglobin Concent 32 32-36 G/DL Red Cell Distribution Width 14.0 10.0-14.5 % Platelet Count 371 130-400 10^3/uL Mean Platelet Volume 8.9 7.4-10.4 FL Neutrophils (%) (Auto) 73 42-75 % Lymphocytes (%) (Auto) 7 L 12-44 % Monocytes (%) (Auto) 21 H 0-12 % Eosinophils (%) (Auto) 0 0-10 % Basophils (%) (Auto) 0 0-10 % Neutrophils # (Auto) 3.3 1.8-7.8 X 10^3 Lymphocytes # (Auto) 0.3 L 1.0-4.0 X 10^3 Monocytes # (Auto) 0.9 0.0-1.0 X 10^3 Eosinophils # (Auto) 0.0 0.0-0.3 10^3/uL Basophils # (Auto) 0.0 0.0-0.1 10^3/uL Neutrophils % (Manual) 76 % Lymphocytes % (Manual) 8 % Monocytes % (Manual) 16 % Eosinophils % (Manual) 0 % Basophils % (Manual) 0 % Band Neutrophils 0 % Blood Morphology Comment NORMAL Sodium Level 141 135-145 MMOL/L Potassium Level 3.5 L 3.6-5.0 MMOL/L Chloride Level 97 L 98-107 MMOL/L Carbon Dioxide Level 28 21-32 MMOL/L Anion Gap 16 H 5-14 MMOL/L Blood Urea Nitrogen 20 H 7-18 MG/DL Creatinine 1.20 0.60-1.30 MG/DL Estimat Glomerular Filtration Rate 45 BUN/Creatinine Ratio 17 Glucose Level 133 H 70-105 MG/DL Calcium Level 10.1 8.5-10.1 MG/DL Corrected Calcium 10.2 H 8.5-10.1 MG/DL Magnesium Level 1.9 1.6-2.4 MG/DL Total Bilirubin 0.8 0.1-1.0 MG/DL Aspartate Amino Transf (AST/SGOT) 48 H 5-34 U/L Alanine Aminotransferase (ALT/SGPT) 35 0-55 U/L Alkaline Phosphatase 167 H 40-136 U/L Total Protein 6.5 6.4-8.2 GM/DL Albumin 3.9 3.2-4.5 GM/DL Lipase 13 8-78 U/L My Orders Orders - MICHAEL VÁZQUEZ MD Ondansetron Injection (Zofran Injectio (08/03/19 08:45) Famotidine Injection (Pepcid Injection) (08/03/19 08:45) Cbc With Automated Diff (08/03/19 08:46) Comprehensive Metabolic Panel (08/03/19 08:46) Lipase (08/03/19 08:46) Magnesium (08/03/19 08:46) Ua Culture If Indicated (08/03/19 08:46) Ed Iv/Invasive Line Start (08/03/19 08:46) Ns Iv 1000 Ml (Sodium Chloride 0.9%) (08/03/19 08:46) Fentanyl Injection (Sublimaze Injection (08/03/19 09:00) Promethazine Injection (Phenergan Injec (08/03/19 09:00) Manual Differential (08/03/19 09:09) Ct Abdomen/Pelvis Wo (08/03/19 10:14) Fentanyl Injection (Sublimaze Injection (08/03/19 10:30) Promethazine Injection (Phenergan Injec (08/03/19 11:00) Ng Tube Insert & Assessment (08/03/19 11:11) Chest 1 View, Ap/Pa Only (08/03/19 11:11) Chest 1 View, Ap/Pa Only (08/03/19 11:36) Medications Given in ED Current Medications Medications Dose Ordered Sig/Austyn Route Start Time Stop Time Status Last Admin Dose Admin Famotidine 20 mg ONCE ONCE IVP 08/03/19 08:45 08/03/19 08:46 DC 08/03/19 08:55 20 MG Fentanyl Citrate 25 mcg ONCE ONCE IVP 08/03/19 09:00 08/03/19 09:01 DC 08/03/19 09:04 25 MCG Fentanyl Citrate 25 mcg ONCE ONCE IVP 08/03/19 10:30 08/03/19 10:31 DC 08/03/19 10:32 25 MCG Ondansetron HCl 4 mg ONCE ONCE IVP 08/03/19 08:45 08/03/19 08:46 DC 08/03/19 08:55 4 MG Promethazine HCl 12.5 mg ONCE ONCE IVP 08/03/19 09:00 08/03/19 09:01 DC 08/03/19 09:04 12.5 MG Promethazine HCl 12.5 mg ONCE ONCE IVP 08/03/19 11:00 08/03/19 11:01 DC 08/03/19 11:27 12.5 MG Sodium Chloride 1,000 ml @ 0 mls/hr Q0M ONCE IV 08/03/19 08:46 08/03/19 08:48 DC 08/03/19 08:54 999 MLS/HR Vital Signs/I&O 08/03/19 08:39 Temp 36.6 Pulse 93 Resp 14 B/P (MAP) 176/100 (125) O2 Delivery Room Air Progress Progress Note : Progress Note Patient was seen and examined. Pain was treated with fentanyl. Nausea was treated with Zofran. Pain and nausea persisted. Refractory nausea was treated with Phenergan. Pain was further treated with additional doses of fentanyl. After review of labs CT was obtained that revealed small bowel obstruction. Patient also has chronic findings such as calcified granulomas in the liver and spleen and pneumobilia from a biliary stent. Patient has had multiple prior surgeries. She did have one bout of emesis that had appearance of stool prior to her last dose of Phenergan. Case was discussed with Dr. Kraus who requested NG placement. Case was discussed with Dr. Sinclair who excepts admission and requested consultation with Dr. Paula due to the atrial fibrillation and anticoagulation. Dr. Kraus. Surgery will be likely needed. Diagnostic Imaging Diagonstic Imaging: CT Plain Films/CT/US/NM/MRI: abdomen, pelvis Comments CT abdomen and pelvis viewed by me and report reviewed. See report below: NAME: LISSA HERNANDEZ [facility] REC#: [id number] PT STATUS: REG ER : 1950 PHYSICIAN: MICHAEL VÁZQUEZ MD ADMIT DATE: 08/03/19/ER Dr pritchard POSDate of Exam:08/03/19 CT ABDOMEN/PELVIS WO PROCEDURE: CT abdomen and pelvis without contrast. TECHNIQUE: Multiple contiguous axial images were obtained through the abdomen and pelvis without the use of intravenous contrast. Auto Exposure Controls were utilized during the CT exam to meet ALARA standards for radiation dose reduction. INDICATION: Pain. COMPARISON: 01/14/2017. FINDINGS: There is a chronic nonobstructing supraumbilical ventral abdominal wall hernia comprised of portions of the middle third of the transverse colon. No inflammatory changes within the hernia sac. Hernial orifice is about 5 cm in diameter, unchanged. There are however findings of distal small bowel obstruction. There are decompressed terminal ileal loops in the right lower quadrant. The small bowel proximally through the level of the stomach and duodenum is dilated with differential air-fluid level. Small bowel diameter was up to 4 cm. Transition at the midline near the level of the umbilicus; however, etiology is not defined. This is presumed to stricture or adhesion. There is post interventional pneumobilia within the liver as a chronic finding. There is chronic splenic granulomatous disease as well as chronic mesenteric calcifications. Urinary tracts are nondilated. The adrenals are negative. The pancreas appeared nonacute. There is a small volume pelvic free fluid without loculated collection or abscess. There is no free air. The urinary bladder is unremarkable. There is a replaced right hip with some overlying soft tissue infiltration and few bubbles of soft tissue gas which may be on a postsurgical basis or reflect injection. No acute appearing bony pathology. There is some old rib deformities on the left, chronic. The lung base is nonacute. IMPRESSION: 1. Findings presumed to reflect recurrence of distal small bowel obstruction. Transition at the midline near the level of the umbilicus without an obstructing lesion. Findings suspicious for adhesions or stricture as the etiology. 2. No perforation. There is small volume pelvic free fluid. There is no free air or abscess. 3. Nonobstructing supraumbilical ventral abdominal wall hernia comprised of a segment of mid transverse colon. This is a stable finding. 4. Hepatosplenic granulomata. There are right upper quadrant stents extending into the proximal duodenum, all unchanged. There is a small hiatal hernia. 5. Apparent recent postsurgical changes to the right hip. Dictated on workstation # [id number] Dict: 08/03/19 1041 Trans: 08/03/19 1103 [facility] [id number] Interpreted by: JACKIE BELL Diagonstic Imaging: Xray Plain Films/CT/US/NM/MRI: chest Comments Chest x-ray viewed by me and report reviewed. See report below: NAME: LISSA HERNANDEZ [facility] REC#: [id number] PT STATUS: REG ER : 1950 PHYSICIAN: MICHAEL VÁZQUEZ MD ADMIT DATE: 08/03/19/ER Draft Date of Exam:08/03/19 CHEST 1 VIEW, AP/PA ONLY Indication: Dyspnea. Comparison: 01/14/2017. Discussion: Single portable upright view of the chest was obtained. Stable normal heart size. Mildly elevated right hemidiaphragm is stable. Antecedent granulomatous disease is again noted, benign. No new consolidation, pleural fluid, or pneumothorax. No osseous abnormality. Impression: 1. No acute cardiopulmonary process. Dictated on workstation # [id number] Dict: 08/03/19 1134 Trans: 08/03/19 1136 [facility] [id number] Interpreted by: MEGAN HOFFMANN MD Departure Communication (Admissions) Time/Spoke to Admitting Phy: 11:20 Dr. Sinclair Communication (PCP) Dr. Kraus 11:15 Dr. Paula 11:23 Impression Primary Impression: Small bowel obstruction Disposition: ADMITTED INPATIENT Condition: Improved Admissions Decision to Admit Reason: Admit from ER (General) Decision to Admit/Date: Aug 03, 2019 Time/Decision to Admit Time: 11:10 Departure-Patient Inst. Referrals: MEGAN RHOADES MD (PCP/Family) Primary Care Physician MICHAEL VÁZQUEZ MD Aug 03, 2019 11:10 POS
--- NOTE | 2019-08-03 11:37 | Diagnostic Imaging Report ---
Indication: Dyspnea. Comparison: 01/14/2017. Discussion: Single portable upright view of the chest was obtained. Stable normal heart size. Mildly elevated right hemidiaphragm is stable. Antecedent granulomatous disease is again noted, benign. No new consolidation, pleural fluid, or pneumothorax. No osseous abnormality. Impression: 1. No acute cardiopulmonary process. Dictated by: Dictated on workstation # [id number]
--- NOTE | 2019-08-03 12:43 | Diagnostic Imaging Report ---
Indication: Enteric tube placement. Comparison: Earlier same date. Discussion: Single portable upright view of the chest was obtained. The enteric tube is folded upon itself within the distal esophagus. Recommend repositioning. Stable heart size. No consolidation, pleural fluid, or pneumothorax. Impression: 1. Enteric tube folded upon itself within the distal esophagus. Dictated by: Dictated on workstation # [id number]
[2019-08-03 13:00] VITALS: BP 150/73
--- NOTE | 2019-08-03 13:16 | Consultation-Cardiology ---
HPI-Cardiology Cardiology Consultation: Date of Consultation 08/03/19 Date of Admission Attending Physician Abby Sinclair DO Admitting Physician Elpidio Stout MD Consulting Physician Silvia PAULA MD HPI: Time Seen by a Provider: 12:30 Chief Complaint: Abdominal discomfort This is a 68-year-old lady who follows with Dr. Longoria for long-standing persistent atrial fibrillation. She is on oral anticoagulation therapy. Nuclear stress test done on 07/11/2019 shows no evidence of ischemia or infarct. She had a recent hip replacement on 07/31/2019. She was on strong narcotic pain medications as well. She presents to the hospital with generalized abdominal pain and significant nausea. She denies any vomiting. She denies any cardiac symptoms area did she specifically denies chest pain, shortness of breath, syncope, near-syncope or palpitations. She is a previous smoker. She denied any significant family history of premature CAD. Review of Systems-Cardiology Review of Systems Constitutional: As described under HPI; No As described under HPI, No no symptoms reported, No chills, No fever, No lightheadedness Eyes: No As described under HPI, No no symptoms reported, No blindness, No blurred vision, No contact lenses, No drainage, No decreased acuity, No foreign body sensation, No pain, No vision change Ears/Nose/Throat: No As described under HPI, No no symptoms reported, No c hronic hearing loss, No ear discharge, No ear pain, No nasal drainage, No ulcerations Respiratory: No no symptoms reported; As described under HPI; No As described under HPI, No cough, No orthopnea, No shortness of breath, No SOB with excertion Cardiovascular: No no symptoms reported; As described under HPI; No As described under HPI, No chest pain, No edema, No irregular heart rate, No lightheadedness, No palpitations Gastrointestinal: No no symptoms reported, No As described under HPI, No abdomen distended; abdominal pain; No blood streaked bowels, No constipation, No diarrhea, No nausea, No vomiting; nausea/vomiting/diarrhea; No stool coloration changes Genitourinary: No As described under HPI, No burning, No dysuria, No discharge, No frequency, No flank pain, No hematuria, No urgency : Yes : No Skin: No rash, No skin related problems, No ulcerations Psychiatric/Neurological: No anxiety, No depression, No seizure, No focal weakness, No syncope Hematologic: No bleeding abnormalities NVF-Vznbmg-Gghymr Hx Patient Social History Alcohol Use: Denies Use Recreational Drug Use: No Drug of Choice: none Smoking Status: Never a Smoker Former smoker/When Quit: Nov 10, 2015 Type Used: Electronic/Vapor Recent Foreign Travel: No Recent Infectious Disease Expo: No Immunizations Up To Date Tetanus Booster (TDap): More than 5yrs Date of Pneumonia Vaccine: Aug 23, 2007 Past Medical History PMH As described under Assessment. Family Medical History Family History: Cardiovascular disease 19 MOTHER (cabg) Neoplasm 19 FATHER (multiple myloma) Allergies and Home Medications Allergies Coded Allergies: Penicillins (Unverified Allergy, Unknown, 04/30/16) codeine (Unverified Allergy, Unknown, dizziness, 05/03/16) pt reports she has had morphine before and has had no problems with it Uncoded Allergies: MYACIN (Allergy, Unknown, 09/06/15) Home Medications Albuterol Sulfate 18 Gm Hfa.aer.ad, 2 PUFF IH Q4H PRN for SHORTNESS OF BREATH, (Reported) Ciprofloxacin HCl 500 Mg Tablet, 500 MG PO BID Prescribed by: SULLY CARABALLO on 01/17/17 1137 Diltiazem HCl 30 Mg Tablet, 30 MG PO BID, (Reported) Furosemide 20 Mg Tablet, 20 MG PO DAILY, (Reported) Hydrocortisone 10 Mg Tablet, 10 MG PO BID, (Reported) Lactulose 10 Gm/15 Ml Solution, 15 ML PO BID PRN for CONSTIPATION-3RD LINE, (Reported) Magnesium Oxide 400 Mg Tablet, 400 MG PO BID, (Reported) Melatonin 3 Mg Tablet, 3 MG PO HS PRN for SLEEP, (Reported) Pantoprazole Sodium 40 Mg Tablet.dr, 40 MG PO DAILY Take protonix 40 mg twice a day for two weeks and then once a day after that Prescribed by: KELLEY OSULLIVAN NWYAA on 01/17/17 1149 Sucralfate 1 Gm Tablet, 1 GM PO BID, (Reported) Tramadol HCl 50 Mg Tablet, 50 MG PO Q8H PRN for PAIN, (Reported) Patient Home Medication List Home Medication List Reviewed: Yes Physical Exam-Cardiology Physical Exam Vital Signs/I&O 08/03/19 08/03/19 08:39 12:29 Temp 36.6 Pulse 93 108 Resp 14 16 B/P (MAP) 176/100 (125) 125/81 Pulse Ox 98 O2 Delivery Room Air Nasal Cannula O2 Flow Rate 2.00 Capillary Refill : Less Than 3 Seconds Constitutional: appears stated age, AAO x 3, apparent distress, well-developed, well-nourished HEENT: PERRL; No discharge; hearing is well preserved, oral hygience is good; No ulceration, No xanthelasmas are seen Neck: No carotid bruit; carotid pulses are 2 + bilaterally Respiratory: chest is bilaterally symmetric, lungs clear to auscultation Cardiovascular: irregularly irregular, tachycardia, S1 and S2 Gastrointestinal: tenderness, abnormal bowel sounds; No spleenomegaly Rectal: deferred Extremities: normal range of motion, non-tender, normal inspection; No clubbing, No cyanosis; no lower extremity edema bilateral; No significant edema Neurologic/Psychiatric: no motor/sensory deficits, alert, normal mood/affect, oriented x 3, power is 5/5 both on sides Skin: normal color; No rash, No ulcerations Data Review Labs Laboratory Tests 08/03/19 09:09: White Blood Count 4.5, Red Blood Count 3.17L, Hemoglobin 9.3L, Hematocrit 29L, Mean Corpuscular Volume 92, Mean Corpuscular Hemoglobin 29, Mean Corpuscular Hemoglobin Concent 32, Red Cell Distribution Width 14.0, Platelet Count 371, Mean Platelet Volume 8.9, Neutrophils (%) (Auto) 73, Lymphocytes (%) (Auto) 7L, Monocytes (%) (Auto) 21H, Eosinophils (%) (Auto) 0, Basophils (%) (Auto) 0, Neutrophils # (Auto) 3.3, Lymphocytes # (Auto) 0.3L, Monocytes # (Auto) 0.9, Eosinophils # (Auto) 0.0, Basophils # (Auto) 0.0, Neutrophils % (Manual) 76, Lymphocytes % (Manual) 8, Monocytes % (Manual) 16, Eosinophils % (Manual) 0, Basophils % (Manual) 0, Band Neutrophils 0, Blood Morphology Comment NORMAL, Sodium Level 141, Potassium Level 3.5L, Chloride Level 97L, Carbon Dioxide Level 28, Anion Gap 16H, Blood Urea Nitrogen 20H, Creatinine 1.20, Estimat Glomerular Filtration Rate 45, BUN/Creatinine Ratio 17, Glucose Level 133H, Calcium Level 10.1, Corrected Calcium 10.2H, Magnesium Level 1.9, Total Bilirubin 0.8, Aspa rtate Amino Transf (AST/SGOT) 48H, Alanine Aminotransferase (ALT/SGPT) 35, Alkaline Phosphatase 167H, Total Protein 6.5, Albumin 3.9, Lipase 13 A/P-Cardiology Assessment/Admission Diagnosis Small bowel obstruction, Recent hip replacement, Narcotic medications use, Hypokalemia, Hypercalcemia, Elevated LFTs, Long-standing persistent atrial fibrillation with RVR, on oral anticoagulation Plan Small bowel obstruction, deferred to the surgical team. Nothing by mouth, decompression with NG tube. Recent hip replacement, Narcotic medications use, could have contra butane to small bowel obstruction. Hypokalemia, replace potassium.?contributing to bowel obstruction. Hypercalcemia, deferred to the primary team. Elevated LFTs, Long-standing persistent atrial fibrillation with RVR, on oral anticoagulation. Patient is nothing by mouth. Hold oral anticoagulation. Lovenox full dose for now. Continue Cardizem. Elevated heart rate likely due to abdominal pain. Thank you for your consultation. Please call me if you have any questions. Nehemias Paula MD, FACP, FACC, FSCAI, FHRS, CCDS Interventional Cardiology Cardiac Electrophysiology Vascular Medicine and Endovascular Interventions Silvia PAULA MD Aug 03, 2019 13:16 POS
--- NOTE | 2019-08-03 13:30 | NUR ---
LISSA HERNANDEZ admitted to room 429-1, with an admitting diagnosis of SMALL BOWEL OBSTRUCTION, on 08/03/19 from ED via BED, accompanied by STAFF. LISSA HERNANDEZ introduced to surroundings, call light, bed controls, phone, TV, temperature control, lights, meal times, smoking policy, visitor policy, side rail policy, bathrooms and showers. Patient Rights given to patient in the handbook. LISSA HERNANDEZ verbalizes understanding that [facility] is not responsible for the loss or damage to any personal effects or valuables that are kept in the patients posession during their hospitalization. The following Patient Care Plans were discussed with the PATIENT: Discharge Planning, PAIN, KNOWLEDGE, AND BOWEL ELIMINATION. LISSA HERNANDEZ verbalizes understanding of Interdisciplinary Patient Education.
--- NOTE | 2019-08-03 14:00 | NUR ---
NG TUBE INSERTED #16 WITHOUT DIFFICULTY, CONNECTED TO LOW INTERM WALL SUCTION, CHECKED FOR PLACEMENT, KUB DONE, RETURN OF BROWN RETURN 300ML
[2019-08-03 14:12] VITALS: BP 150/73
--- NOTE | 2019-08-03 14:21 | Diagnostic Imaging Report ---
INDICATION: NG placement FINDINGS: OG catheter is in the gastric fundus. There is a biliary stent in the right upper quadrant. There is some air at the rectal vault. No abnormal fecal loading. There is a gaseous distention of small bowel small bowel up to 5 cm in the mid to upper abdomen. It is unclear if this is early or partial obstruction versus a small bowel ileus. IMPRESSION: Catheter is in the stomach. Mid to proximal small bowel dilatation. No abnormality of the colon with some air in the nondistended rectal vault. Dictated by: Dictated on workstation # [id number]
--- NOTE | 2019-08-03 14:43 | CONSULTATION REPORT ---
DATE OF SERVICE: ATTENDING PRIMARY CARE PHYSICIAN: Dr. Stout. HISTORY OF PRESENT ILLNESS: The patient is a 68-year-old female, who presented to the Emergency Department with abdominal distention, nausea and vomiting. She is status post right total hip arthroplasty one week ago. She is also currently on narcotic pain medications for this. She developed abdominal distention as well as nausea and vomiting starting yesterday. No hematemesis, no coffee ground emesis. A CT scan was performed, which did show some dilated loops of small bowel as well as a recurrent ventral abdominal hernia; however, there does not appear to be any obstruction in this region. This may represent a partial small-bowel obstruction versus an ileus from her recent surgery as well as opioid pain medications. PAST MEDICAL HISTORY: Atrial fibrillation, hypertension, COPD, asthma, emphysema, history of pancreatic abscess and jaundice, chronic lower extremity edema, rheumatoid arthritis, osteoporosis. PAST SURGICAL HISTORY: Tonsillectomy, section, hysterectomy with appendectomy in 1987, cholecystectomy, total hysterectomy, tonsillectomy, ventral abdominal hernia repair. ALLERGIES: No known drug allergies. MEDICATIONS: Albuterol 2 puffs q.4 hours p.r.n., ciprofloxacin 500 mg b.i.d., diltiazem 30 mg b.i.d., furosemide 20 mg daily, hydrocortisone 10 mg b.i.d., lactulose 10 mg b.i.d. p.r.n., Protonix 40 mg daily, sucralfate 1g p.o. b.i.d., and tramadol 50 mg daily, Xarelto b.i.d. ALLERGIES: PENICILLIN, CODEINE, MYCIN ANTIBIOTICS. SOCIAL HISTORY: Positive smoke, currently uses vaporized nicotine. She does drink alcohol daily. FAMILY HISTORY: Father, multiple myeloma. VITAL SIGNS: Stable. REVIEW OF SYSTEMS: Well-nourished female currently guarded secondary to the abdominal distention and nausea and vomiting of bilious material. No hematemesis, no coffee-ground emesis. She is unsure when her last bowel movement was. No previous history of red blood per rectum nor any dark tarry stools. No chest pain, palpitations, diaphoresis. No fever, chills, no recent inadvertent weight loss. PHYSICAL EXAMINATION: CHEST: Scattered rales and expiratory wheezes bilaterally. HEART: Regular, no murmurs. EXTREMITIES: Bilateral lower extremity edema, negative Homans sign. HEENT: No scleral icterus. NECK: No cervical lymphadenopathy. ABDOMEN: Soft, slightly distended with an incisional hernia, which appears to be reducible with mild tenderness to palpation. No peritoneal signs. SKIN: Warm, dry. LABORATORY DATA: WBC 4.5, hemoglobin 9.3, hematocrit 29, platelets 371. BUN 20, creatinine 1.20. ASSESSMENT AND PLAN: A 68-year-old female with partial small-bowel obstruction versus ileus from recent right total hip arthroplasty. We will recommend conservative therapy with IV hydration, bowel rest, NG tube, decompression as necessary and await bowel function. At some point, she may want to have her hernia addressed when she is medically optimized. Job ID: [id number] DocumentID: [id number] Dictated Date: 08/03/2019 11:53:46 [employer]ate Black Belt Date: 08/03/2019 14:42:36 Dictated By: FATUMA RODAS MD MTDD
[2019-08-03] MEDS: D5 1/2 NS W/KCL 20 MEQ/L 1,000 ML IV SCH ×3 (15:00→23:15)
[2019-08-03 15:33] VITALS: BP 154/67
[2019-08-03 18:52] VITALS: BP 154/67
[2019-08-03 19:01] VITALS: BP 161/72
[2019-08-03] MEDS ORDERED: ENOXAPARIN 40 MG/0.4 ML (LOVENOX) SYR SC SCH (19:30)
[2019-08-03] MEDS ORDERED: ENOXAPARIN 40 MG/0.4 ML (LOVENOX) SYR ONE (19:46)
[2019-08-03] MEDS: fentaNYL INJECTION 100 MCG/2 ML AMP IV PRN ×2 (19:58→23:15)
[2019-08-04] VITALS (8 sets, daily range): BP systolic 124–170; BP diastolic 70–96
--- NOTE | 2019-08-04 00:06 | NUR ---
PT GIVEN FENTANYL 50 MCG 50 MIN AGO. CONTINUES TO C/O PAIN 04/20. DR. VALENCIA NOTIFIED. ORDER TO DC FENTANYL AND GIVE DILAUDID 0.5MG IV Q3HR PRN PAIN.
[2019-08-04] MEDS: HYDROmorphone 2 MG/ML VIAL (DILAUDID) IV PRN ×2 (01:51→08:15)
[2019-08-04] MEDS: D5 1/2 NS W/KCL 20 MEQ/L 1,000 ML IV SCH ×3 (06:52→22:37)
[2019-08-04] MEDS: FAMOTIDINE 20MG/2ML IV (PEPCID) IV SCH (08:15)
[2019-08-04] MEDS ORDERED: POTA10TA10 PO (09:43)
[2019-08-04] MEDS ORDERED: OXYC-471 PO (09:45)
[2019-08-04] MEDS ORDERED: APIX5TAB PO (09:53)
[2019-08-04] MEDS ORDERED: RIVA10TA PO (09:53)
[2019-08-04] MEDS ORDERED: ENALAPRILAT 1.25 MG/1 ML (VASOTEC) 1 ML VIAL IV SCH (10:00)
--- NOTE | 2019-08-04 10:00 | NUR ---
DR CEDEÑO HERE, ORDERED TO HAVE PHARMACY DOSE LOVENOX AND START IV VASOTEC 5MG DAILY
--- NOTE | 2019-08-04 10:50 | Progress Note ---
Subjective Date Seen by a Provider: Aug 04, 2019 Time Seen by a Provider: 10:15 Subjective/Events-last exam Patient seen with Dr. Kraus. Patient reports doing better. No N/V, F/C, or abdominal pain. Passing flatus. Objective Exam Vital Signs Date Time Temp Pulse Resp B/P (MAP) Pulse Ox O2 Delivery O2 Flow Rate FiO2 08/04/19 08:00 37.8 91 18 165/96 (119) 98 Room Air 08/04/19 07:00 101 08/04/19 04:44 37.5 82 20 158/92 (114) 96 Room Air 08/04/19 01:00 100 08/04/19 00:19 37.6 99 20 145/83 (103) 96 Room Air 08/03/19 20:00 Room Air 08/03/19 19:01 37.1 97 20 161/72 (101) 99 Room Air 08/03/19 19:00 101 08/03/19 18:52 37.4 106 22 154/67 100 Room Air 2.00 2.00 08/03/19 15:33 37.4 106 22 154/67 (96) 100 Room Air 08/03/19 14:57 119 08/03/19 14:12 37.7 88 20 150/73 92 Room Air 08/03/19 13:30 100 Room Air 08/03/19 13:00 37.7 88 20 150/73 (98) 92 Room Air 08/03/19 12:29 108 16 125/81 98 Nasal Cannula 2.00 I & O 08/04/19 07:00 Intake Total 0 ml Output Total 800 ml Balance -800 ml Capillary Refill : Less Than 3 SecondsLess Than 3 Seconds General Appearance: No Apparent Distress, WD/WN Neck: Full Range of Motion, Normal Inspection, Supple Respiratory: Normal Breath Sounds, No Accessory Muscle Use, No Respiratory Distress Cardiovascular: Regular Rate, Rhythm, No Edema Gastrointestinal: normal bowel sounds, soft, tenderness, other (Mid abdominal incisional hernia that is reducible, but tender to palpation.) Extremity: Normal Capillary Refill, Normal Inspection, Normal Range of Motion Neurologic/Psychiatric: Alert, Oriented x3 Skin: Normal Color, Warm/Dry Assessment/Plan Assessment/Plan Assess & Plan/Chief Complaint A 68 year old female with PSBO and incisional hernia that is reducible. VSS. IV fluids, pain and nausea meds prn. PUD prophylaxis NG tube in place, will clamp and start clear liquids. If patient tolerates clear liquids, then NGT can be DC'd. Ambulation. Clinical Quality Measures DVT/VTE Risk/Contraindication: Risk Factor Score Per Nursin RFS Level Per Nursing on Admit: 4+=Very High EMY LEVY SAUSAGE LINKER Aug 04, 2019 10:50 POS
--- NOTE | 2019-08-04 10:55 | NUR ---
DR CEDEÑO NOTIFIED TO VERIFY VASOTEC DOSE, CHANGED TO 2.5MG DAILY IV
[2019-08-04] MEDS: ENALAPRILAT 1.25 MG/1 ML (VASOTEC) 1 ML VIAL IV SCH (11:03)
--- NOTE | 2019-08-04 11:10 | NUR ---
VASOTEC 2.5MG GIVEN IV INSTRUCTED BY DR CEDEÑO, BP 170/79, PULSE 97, SAT 97, TELEMETRY ON, NG TUBE IN PATENT WITH BROWN COLOR RETURN, C/O HIP PAIN, STERI STRIPS INTACT TO RIGHT HIP, SCD'S ON, URSULA HOSE ON, CALL LIGHT WITHIN REACH.
--- NOTE | 2019-08-04 11:28 | Cardiology Progress Note ---
Cardiology SOAP Progress Note Subjective: Improved abdominal discomfort. Objective: I&O/Vital Signs 08/04/19 08/04/19 08/04/19 08/04/19 00:19 01:00 04:44 07:00 Temp 37.6 37.5 Pulse 99 100 82 101 Resp 20 20 B/P (MAP) 145/83 (103) 158/92 (114) Pulse Ox 96 96 O2 Delivery Room Air Room Air 08/04/19 08/04/19 08:00 08:00 Temp 37.8 Pulse 91 Resp 18 B/P (MAP) 165/96 (119) Pulse Ox 98 O2 Delivery Room Air Room Air 08/03/19 23:59 Intake Total 0 ml Output Total 450 ml Balance -450 ml Weight (Pounds): 154 Weight (Ounces): 4.0 Weight (Calculated Kilograms): 69.843481 Constitutional: appears stated age, AAO x 3, apparent distress, well-developed, well-nourished Respiratory: chest is bilaterally symmetric, lungs clear to auscultation Cardiovascular: irregularly irregular, tachycardia, S1 and S2 Gastrointestional: tenderness, abnormal bowel sounds; No spleenomegaly Extremities: normal range of motion, non-tender, normal inspection; No clubbing, No cyanosis; no lower extremity edema bilateral; No significant edema Neurologic/Psychiatric: no motor/sensory deficits, alert, normal mood/affect, oriented x 3, power is 5/5 both on sides Skin: normal color; No rash, No ulcerations A/P: Assessment/Dx: Small bowel obstruction, Recent hip replacement, Narcotic medications use, Hypokalemia, Hypercalcemia, Elevated LFTs, Long-standing persistent atrial fibrillation with RVR, on oral anticoagulation, Hypertension Plan: Small bowel obstruction, deferred to the surgical team. decompression with NG t ube. Recent hip replacement, Narcotic medications use, could have contra butane to small bowel obstruction. Hypokalemia, replace potassium.?contributing to bowel obstruction. Hypercalcemia, deferred to the primary team. Elevated LFTs, Long-standing persistent atrial fibrillation with RVR, on oral anticoagulation. The primary team is gradually increasing by mouth intake. Since I am unclear about GI absorption of cardiac meds, I will still continue to Hold oral anticoagulation. Lovenox full dose for now. Hypertension: IV Vasotec 2.5 mg as required. We will transition to by mouth medications when the patient is able to tolerate by mouth intake. Thank you for your consultation. Please call me if you have any questions. Nehemias Paula MD, FACP, FACC, FSCAI, FHRS, CCDS Interventional Cardiology Cardiac Electrophysiology Vascular Medicine and Endovascular Interventions Silvia PAULA MD Aug 04, 2019 11:28 am POS
[2019-08-04] MEDS: ENOXAPARIN 80 MG/0.8 ML (LOVENOX) SYR SC SCH ×2 (12:41→23:41)
--- NOTE | 2019-08-04 13:00 | NUR ---
NG TUBE DC INSTRUCTED BY DR RODAS, CLEAR LIQUID DIET, ABD BINDER APPLIED, UP IN CHAIR, AYAZ WELL
--- NOTE | 2019-08-04 13:10 | History & Physical-Hospitalist ---
History of Present Illness HPI/Chief Complaint Chief complaint: Small bowel obstruction History of present illness: This is a 68-year-old white female clinic patient of [facility] who presents to the ER with abdominal pain found to have small bowel obstruction. Patient has a history of small bowel obstruction 2 years ago. She does have a ventral hernia that could be complicating the situation. Dr. Kraus has been consulted. Patient was placed on supportive care with IV fluid antiemetics and pain medication. She just recently had a right hip replacement by Dr. Lagos in [place] last Monday O and discharged 2 days later to home where she lives alone. She started having additional issues with abdominal pain and nausea and worsened so she pres ented to the ER. Patient is currently now experiencing a productive cough and low-grade fever. Will initiate the sepsis protocol. Source: patient Exam Limitations: no limitations Date Seen 08/04/19 Time Seen by a Provider: 12:00 Attending Physician Abby Valencia DO PCP Elpidio Stout MD Referring Physician Date of Admission Aug 03, 2019 at 11:27 Home Medications & Allergies Home Medications Reviewed patient Home Medication Reconciliation performed by pharmacy medication reconciliations photographic laboratory technician and/or nursing. Patients Allergies have been reviewed. Allergies Allergies Coded Allergies Penicillins (Unverified Allergy, Unknown, 04/30/16) codeine (Unverified Allergy, Unknown, dizziness, 05/03/16) pt reports she has had morphine before and has had no problems with it Uncoded Allergies MYACIN ( Allergy, Unknown, 09/06/15) Past Qeswuef-Jjdxua-Sffldy Hx Past Med/Social Hx: Reviewed Nursing Past Med/Soc Hx, Reviewed and Corrections made Patient Social History Marrital Status: single Employed/Student: retired Alcohol Use: Denies Use Alcohol Beverage of Choice: Beer Recreational Drug Use: No Drug of Choice: none Smoking Status: Never a Smoker Type Used: Electronic/Vapor Recent Foreign Travel: No Contact w/other who traveled: No Recent Hopitalizations: No Recent Infectious Disease Expo: No Immunizations Up To Date Tetanus Booster (TDap): More than 5yrs Date of Pneumonia Vaccine: Aug 23, 2007 Date of Influenza Vaccine: Jul 03, 2019 Seasonal Allergies Seasonal Allergies: No Past Medical History Surgeries: Appendectomy, Section, Ear Surgery, Gallbladder, Hysterectomy, Oophorectomy, Tonsillectomy Currently Using CPAP: No Currently Using BIPAP: No Cardiac: Atrial Fibrillation, Chronic Edema/Swelling, Hypertension Reproductive: Yes Sexually Transmitted Disease: No HIV/AIDS: No Hysterectomy Gastrointestinal: Liver Disease/Jaundice, Gastrointestinal Bleed, Obstructive Bowel Musculoskeletal: Osteoporosis, Arthritis, Rheumatoid Arthritis History of Blood Disorders: Yes (ANEMIA FROM HEAVY MENSES AND GI BLEED IN PAST. ) Adverse Reaction to Blood [place] Toro: No Family History Cardiovascular disease 19 MOTHER (cabg) Neoplasm 19 FATHER (multiple myloma) Review of Systems Constitutional: see HPI, malaise, weakness EENTM: no symptoms reported Respiratory: cough, dyspnea on exertion, short of breath Cardiovascular: no symptoms reported Gastrointestinal: abdominal pain, loss of appetite, nausea, vomiting Genitourinary: no symptoms reported Musculoskeletal: back pain, joint pain Skin: no symptoms reported Psychiatric/Neurological: No Symptoms Reported All Other Systems Reviewed Negative Unless Noted: Yes Physical Exam Physical Exam Vital Signs Vital Signs - First Documented 08/03/19 08/03/19 08:39 12:29 Temp 36.6 Pulse 93 Resp 14 B/P (MAP) 176/100 (125) Pulse Ox 98 O2 Delivery Room Air O2 Flow Rate 2.00 Capillary Refill : Less Than 3 SecondsLess Than 3 Seconds Height, Weight, BMI Height: 5'4.00" Weight: 154lbs. 4.0oz. 69.580035hd; 30.44 BMI Method:Stated General Appearance: No Apparent Distress, WD/WN, Chronically ill Eyes: Right Eye Normal Inspection, Right Eye PERRL HEENT: PERRL/EOMI, TMs Normal, Normal ENT Inspection, Pharynx Normal, Moist Muc ous Membranes Neck: Full Range of Motion, Normal Inspection, Non Tender Respiratory: Chest Non Tender, Lungs Clear, Normal Breath Sounds, No Accessory Muscle Use, No Respiratory Distress Cardiovascular: Regular Rate, Rhythm, No Edema, No Gallop, No JVD, No Murmur, Normal Peripheral Pulses Gastrointestinal: Normal Bowel Sounds, No Organomegaly, No Pulsatile Mass, Abnormal Bowel Sounds, Tenderness, Other (NGT in place) Back: Normal Inspection, No CVA Tenderness, No Vertebral Tenderness Extremity: Normal Capillary Refill, Normal Inspection, Normal Range of Motion, Non Tender, No Calf Tenderness, No Pedal Edema Neurologic/Psychiatric: Alert, Oriented x3, No Motor/Sensory Deficits, Normal Mood/Affect Skin: Normal Color, Warm/Dry Lymphatic: No Adenopathy Results Results/Procedures Labs Laboratory Tests 08/03/19 09:09 Patient resulted labs reviewed. Assessment/Plan Admission Diagnosis Assessment: SBO acute w/h/o SBO 2017 Ventral hernia Productive cough with low grade fever today at 1600 ordered septic w/u Recent right hip replacement POD # 7 Dr Lagos in [place] Plan: IVF NPO Dr Kraus consultation Septic w/u for productive cough and low grade fever today Admission Status: Inpatient Order (span 2 midnights) Reason for Inpatient Admission: SBO with fever Diagnosis/Problems Diagnosis/Problems (1) Small bowel obstruction Status: Acute (2) Chronic atrial fibrillation Status: Acute (3) COPD (chronic obstructive pulmonary disease) Status: Acute (4) Abdominal pain Status: Acute Clinical Quality Measures DVT/VTE Risk/Contraindication: Risk Factor Score Per Nursin RFS Level Per Nursing on Admit: 4+=Very High ABBY VALENCIA DO Aug 04, 2019 13:10 POS
[2019-08-04] MEDS: HYDROcodone/APAP 7.5 MG/325 MG (LORTAB, LORCET PLUS) TABLET PO PRN ×2 (13:36→18:31)
--- NOTE | 2019-08-04 16:00 | NUR ---
PATIENT COUGHING A LOT, TEMP 100, DR VALENCIA NOTIFIED AND ORDERS GIVEN
[2019-08-04 16:47] LABS: BASOPHILS % (AUTO) 0 % (0-10); EOSINOPHILS # (AUTO) 0.1 10^3/uL (0.0-0.3); EOSINOPHILS % (AUTO) 3 % (0-10); HEMATOCRIT 28 % (35-52); HEMOGLOBIN 8.5 G/DL (11.5-16.0); LYMPHOCYTES # (AUTO) 0.7 X 10^3 (1.0-4.0); LYMPHOCYTES % (AUTO) 17 % (12-44); MEAN CORPUSCULAR HEMOGLOBIN 29 PG (25-34); MEAN CORPUSCULAR HGB CONC 31 G/DL (32-36); MEAN CORPUSCULAR VOLUME 95 FL (80-99); MEAN PLATELET VOLUME 8.6 FL (7.4-10.4); MONOCYTES % (AUTO) 24 % (0-12); NEUTROPHILS # (AUTO) 2.4 X 10^3 (1.8-7.8); NEUTROPHILS % (AUTO) 56 % (42-75); PLATELET COUNT 331 10^3/uL (130-400); RED CELL DISTRIBUTION WIDTH 14.5 % (10.0-14.5); WHITE BLOOD COUNT 4.3 10^3/uL (4.3-11.0)
[2019-08-04 17:05] LABS: ALBUMIN 3.3 GM/DL (3.2-4.5); BILIRUBIN,TOTAL 0.6 MG/DL (0.1-1.0); CALCIUM 8.4 MG/DL (8.5-10.1); CREATININE SERUM 1.05 MG/DL (0.60-1.30); POTASSIUM 4.5 MMOL/L (3.6-5.0); TOTAL PROTEIN 5.6 GM/DL (6.4-8.2)
[2019-08-04 17:31] LABS: ANISOCYTOSIS SLIGHT; BAND NEUTROPHILS 0 %; BASOPHILS % (MANUAL) 0 %; EOSINOPHILS % (MANUAL) 3 %; LYMPHOCYTES % (MANUAL) 11 %; MONOCYTES % (MANUAL) 26 %; NEUTROPHILS % (MANUAL) 60 %
--- NOTE | 2019-08-04 17:34 | Diagnostic Imaging Report ---
INDICATION: Fever. COMPARISON: 08/03/2019. EXAMINATION: Single view of the chest was obtained. FINDINGS: Stable cardiac enlargement. The lungs are clear. There is no pneumothorax. The osseous structures are normal. IMPRESSION: Cardiac enlargement without pulmonary edema or infiltrate. Dictated by: Dictated on workstation # [id number]
--- NOTE | 2019-08-04 18:39 | NUR ---
MODERATED BROWN FORMED STOOL
[2019-08-04] MEDS: RT-ALBUTEROL SULF 2.5 MG/3 ML PRE-MIX VIAL INH SCH (20:24)
[2019-08-04] MEDS: ONDANSETRON 4 MG/2 ML (SDV) Z0FRAN IV PRN (20:32)
[2019-08-04] MEDS: DILTIAZEM 30 MG (CARDIZEM) TAB PO SCH (20:32)
[2019-08-04] MEDS: PROMETHAZINE INJ 25 MG/ML (PHENERGAN) AMP IV PRN (22:36)
[2019-08-05] VITALS (8 sets, daily range): BP systolic 114–159; BP diastolic 63–79
[2019-08-05] MEDS: D5 1/2 NS W/KCL 20 MEQ/L 1,000 ML IV SCH ×3 (06:05→21:04)
[2019-08-05] MEDS: HYDROcodone/APAP 7.5 MG/325 MG (LORTAB, LORCET PLUS) TABLET PO PRN ×3 (09:14→23:25)
[2019-08-05] MEDS: DILTIAZEM 30 MG (CARDIZEM) TAB PO SCH ×3 (09:14→21:04)
[2019-08-05] MEDS: FAMOTIDINE 20MG/2ML IV (PEPCID) IV SCH (09:15)
[2019-08-05] MEDS: ENALAPRILAT 1.25 MG/1 ML (VASOTEC) 1 ML VIAL IV SCH (09:15)
--- NOTE | 2019-08-05 09:32 | Progress Note - Hospitalist ---
Subjective HPI/CC On Admission Date Seen by Provider: Aug 05, 2019 Time Seen by Provider: 08:45 Chief complaint: Small bowel obstruction History of present illness: This is a 68-year-old white female clinic patient of [facility] who presents to the ER with abdominal pain found to have small bowel obstruction. Patient has a history of small bowel obstruction 2 years ago. She does have a ventral hernia that could be complicating the situation. Dr. Kraus has been consulted. Patient was placed on supportive care with IV fluid antiemetics and pain medication. She just recently had a right hip replacement by Dr. Lagos in [place] last Monday O and discharged 2 days later to home where she lives alone. She started having additional issues with abdominal pain and nausea and worsened so she presented to the ER. Patient is currently now experiencing a productive cough and low-grade fever. Will initiate the sepsis protocol. Subjective/Events-last exam Pt had three bowel movements NG tube out Chest xray revealed no infiltrate Dr. Braga was consulted and found the pt to have no acute abnormality except for COPD because she just stopped smoking 1.5 years ago Had some nausea last night Labs remain normal Review of Systems General: Fatigue Pulmonary: Cough Gastrointestinal: Abdominal Pain Focused Exam Lactate Level 08/04/19 16:40: Lactic Acid Level 1.08 Objective Exam Vital Signs Vital Signs Date Time Temp Pulse Resp B/P (MAP) Pulse Ox O2 Delivery O2 Flow Rate FiO2 08/05/19 19:14 36.8 80 20 129/67 (87) 99 Room Air 08/03/19 18:52 2.00 2.00 Capillary Refill : Less Than 3 SecondsLess Than 3 Seconds General Appearance: No Apparent Distress, WD/WN, Chronically ill Respiratory: Chest Non Tender, Lungs Clear, Normal Breath Sounds, No Accessory Muscle Use, No Respiratory Distress Cardiovascular: Regular Rate, Rhythm, No Edema, No Gallop, No JVD, No Murmur, Normal Peripheral Pulses Neurologic/Psychiatric: Alert, Oriented x3, No Motor/Sensory Deficits, Normal Mood/Affect Skin: Normal Color, Warm/Dry Results/Procedures Lab Laboratory Tests 08/05/19 09:58 Patient resulted labs reviewed. Assessment/Plan Assessment and Plan Assess & Plan/Chief Complaint Assessment: SBO acute w/h/o SBO 2017 Ventral hernia Productive cough with low grade fever yesterday at 1600 ordered septic w/u but it was negative and fever resolved Recent right hip replacement POD # 8 Dr Lagos in [place] Plan: IVF CLD Dr Kraus consultation Septic w/u negative Diagnosis/Problems Diagnosis/Problems (1) Small bowel obstruction Status: Acute (2) Chronic atrial fibrillation Status: Acute (3) COPD (chronic obstructive pulmonary disease) Status: Acute (4) Abdominal pain Status: Acute Clinical Quality Measures DVT/VTE Risk/Contraindication: Risk Factor Score Per Nursin RFS Level Per Nursing on Admit: 4+=Very High TALIA VALENCIA DO Aug 05, 2019 09:32 POS
[2019-08-05] MEDS: RT-ALBUTEROL SULF 2.5 MG/3 ML PRE-MIX VIAL INH SCH ×3 (10:00→21:12)
--- NOTE | 2019-08-05 10:02 | Cardiology Progress Note ---
Cardiology SOAP Progress Note Subjective: still complaining of abdominal discomfort. Objective: I&O/Vital Signs 08/05/19 08/05/19 08/05/19 08/05/19 00:00 01:00 03:38 07:00 Temp 37.2 36.5 Pulse 94 103 90 83 Resp 18 20 B/P (MAP) 114/63 (80) 124/76 (92) Pulse Ox 97 97 O2 Delivery Room Air Room Air 08/05/19 08/05/19 07:30 09:18 Temp 36.8 Pulse 94 106 Resp 22 B/P (MAP) 130/77 (94) 159/67 (97) Pulse Ox 98 O2 Delivery Room Air 08/05/19 00:00 Intake Total 2170 ml Output Total 152 ml Balance 2018 ml Weight (Pounds): 154 Weight (Ounces): 4.0 Weight (Calculated Kilograms): 69.454242 Constitutional: appears stated age, AAO x 3, apparent distress, well-developed, well-nourished Respiratory: chest is bilaterally symmetric, lungs clear to auscultation Cardiovascular: irregularly irregular, tachycardia, S1 and S2 Gastrointestional: tenderness, abnormal bowel sounds; No spleenomegaly Extremities: normal range of motion, non-tender, normal inspection; No c lubbing, No cyanosis; no lower extremity edema bilateral; No significant edema Neurologic/Psychiatric: no motor/sensory deficits, alert, normal mood/affect, oriented x 3, power is 5/5 both on sides Skin: normal color; No rash, No ulcerations Results/Procedures: Labs Laboratory Tests 08/04/19 16:40: White Blood Count 4.3, Red Blood Count 2.89L, Hemoglobin 8.5L, Hematocrit 28L, Mean Corpuscular Volume 95, Mean Corpuscular Hemoglobin 29, Mean Corpuscular Hemoglobin Concent 31L, Red Cell Distribution Width 14.5, Platelet Count 331, Mean Platelet Volume 8.6, Neutrophils (%) (Auto) 56, Lymphocytes (%) (Auto) 17, Monocytes (%) (Auto) 24H, Eosinophils (%) (Auto) 3, Basophils (%) (Auto) 0, Neutrophils # (Auto) 2.4, Lymphocytes # (Auto) 0.7L, Monocytes # (Auto) 1.0, Eosinophils # (Auto) 0.1, Basophils # (Auto) 0.0, Neutrophils % (Manual) 60, Lymphocytes % (Manual) 11, Monocytes % (Manual) 26, Eosinophils % (Manual) 3, Basophils % (Manual) 0, Band Neutrophils 0, Anisocytosis SLIGHT, Sodium Level 138, Potassium Level 4.5, Chloride Level 106, Carbon Dioxide Level 25, Anion Gap 7, Blood Urea Nitrogen 13, Creatinine 1.05, Estimat Glomerular Filtration Rate 52, BUN/Creatinine Ratio 12, Glucose Level 124H, Lactic Acid Level 1.08, Calcium Level 8.4L, Corrected Calcium 9.0, Total Bilirubin 0.6, Aspartate Amino Transf (AST/SGOT) 35H, Alanine Aminotransferase (ALT/SGPT) 27, Alkaline Phosphatase 131, Total Protein 5.6L, Albumin 3.3 A/P: Assessment/Dx: Small bowel obstruction, Recent hip replacement, Narcotic medications use, Hypokalemia, Hypercalcemia, Elevated LFTs, Long-standing persistent atrial fibrillation with RVR, on oral anticoagulation, Hypertension Plan: Small bowel obstruction, deferred to the surgical team. Recent hip replacement, Narcotic medications use, could have contra butane to small bowel obstruction. Hypokalemia, replace potassium.?contributing to bowel obstruction. Hypercalcemia, deferred to the primary team. Elevated LFTs, Long-standing persistent atrial fibrillation with RVR, on oral anticoagulation. start Eliquis 5 mg twice a day. Hypertension: change IV enalapril by mouth lisinopril. Thank you for your consultation. Please call me if you have any questions. Nehemias Paula MD, FACP, FACC, FSCAI, FHRS, CCDS Interventional Cardiology Cardiac Electrophysiology Vascular Medicine and Endovascular Interventions Focused Exam Lactate Level 08/04/19 16:40: Lactic Acid Level 1.08 Silvia PAULA MD Aug 05, 2019 10:02 POS
[2019-08-05 10:05] LABS: BASOPHILS % (AUTO) 0 % (0-10); EOSINOPHILS # (AUTO) 0.1 10^3/uL (0.0-0.3); EOSINOPHILS % (AUTO) 3 % (0-10); HEMATOCRIT 27 % (35-52); HEMOGLOBIN 8.1 G/DL (11.5-16.0); LYMPHOCYTES # (AUTO) 0.9 X 10^3 (1.0-4.0); LYMPHOCYTES % (AUTO) 23 % (12-44); MEAN CORPUSCULAR HEMOGLOBIN 30 PG (25-34); MEAN CORPUSCULAR HGB CONC 31 G/DL (32-36); MEAN CORPUSCULAR VOLUME 96 FL (80-99); MEAN PLATELET VOLUME 8.2 FL (7.4-10.4); MONOCYTES # (AUTO) 0.8 X 10^3 (0.0-1.0); MONOCYTES % (AUTO) 23 % (0-12); NEUTROPHILS # (AUTO) 1.9 X 10^3 (1.8-7.8); NEUTROPHILS % (AUTO) 51 % (42-75); PLATELET COUNT 311 10^3/uL (130-400); RED CELL DISTRIBUTION WIDTH 14.6 % (10.0-14.5); WHITE BLOOD COUNT 3.7 10^3/uL (4.3-11.0)
[2019-08-05 10:23] LABS: ALBUMIN 3.1 GM/DL (3.2-4.5); BILIRUBIN,TOTAL 0.6 MG/DL (0.1-1.0); CALCIUM 8.1 MG/DL (8.5-10.1); CREATININE SERUM 0.95 MG/DL (0.60-1.30); POTASSIUM 4.9 MMOL/L (3.6-5.0); TOTAL PROTEIN 5.7 GM/DL (6.4-8.2)
[2019-08-05] MEDS ORDERED: MULT-878 PO (11:02)
[2019-08-05] MEDS ORDERED: ACET-77 PO (11:02)
--- NOTE | 2019-08-05 12:00 | Physical Therapy Evaluation ---
PT Evaluation-General Medical Diagnosis Admission Date Aug 03, 2019 at 11:27 Medical Diagnosis: small bowel obstruction Onset Date: Aug 03, 2019 Therapy Diagnosis Therapy Diagnosis: debility, weakness Height/Weight Height (Feet): 5 Height (Inches): 4.00 Weight (Pounds): 154 Weight (Ounces): 4.0 Precautions Precautions/Isolations: Contact Isolation, Fall Prevention Referral Physician: Dottie Reason for Referral: Evaluation/Treatment Medical History Pertinent Medical History: Atrial Fib, HTN, Rheumatoid Arthritis Current History EMS secondary to abdominal pain and nausea; hip replacement sx 1 week prior Reviewed History: Yes Social History Home: Single Level Current Living Status: Alone Entry Into Home: Level Entry Prior Prior Level of Function SCALE: Activities may be completed with or without assistive devices. 3-Fyfwmfvdgz-qxqgesk completes the activity by him/herself with no assistance from a helper. 5-Set-up or Clean-up Assistance-helper sets up or cleans up; patient completes activity. [place] assists only prior to or following the activity. 4-Supervision or Touching Assistance-helper provides verbal cues and/or touching/steadying and/or contact guard assistance as patient completes activity. Assistance may be provided throughout the activity or intermittently. 3-Partial/Moderate Assistance-helper does LESS THAN HALF the effort. [place] lifts, holds or supports trunk or limbs, but provides less than half the effort. 2-Substantial/Maximal Assistance-helper does MORE THAN HALF the effort. [place] l ifts or holds trunk or limbs and provides more than half the effort. 8-Gpqhnifnd-xqroeg does ALL the effort. Patient does none of the effort to complete the activity. Or, the assistance of 2 or more helpers is required for the patient to complete the activity. If activity was not attempted, code reason: 7-Patient Refused. 9-Not Applicable-not attempted and the patient did not perform the activity before the current illness, exacerbation or injury. 10-Not Attempted due to Environmental Limitations-(lack of equipment, weather restraints, etc.). 88-Not Attempted due to Medical Conditions or Safety Concerns. Bed Mobility: 6 Transfers (B,C,W/C): 6 Gait: 6 Indoor Mobility (Ambulation): Independent Prior Devices Use: Walker PT Evaluation-Current Subjective Patient agrees to PT at this time. Requests assistance with toileting before ambulation. Reports constant moderate pain in abdomen and hip pain with ambulation. Pain Numeric Pain Scale: 5-Moderate Pain Location: Lower Location Body Site: Abdomen Pain Description: Ache Objective Patient Orientation: Normal For Age Attachments: IV ROM/Strength ROM Lower Extremities WFL Strength Lower Extremities L: grossly 4/5; R: grossly 3/5 Integumentary/Posture Integumentary See nursing notes Bowel Incontinence: No Bladder Incontinence: No Posture WFL; forward lean d/t pain Neuromuscular (Tone, Coordination, Reflexes) Grossly intact Sensory Vision: Functional Hearing: Functional Transfers Roll Left to Right (QC): 6 Sit to Lying (QC): 6 Lying to Sitting/Side of Bed(Q: 6 Sit to Stand (QC): 5 Chair/Eov-na-Pyomg Xfer(QC): 5 Car Transfer (QC): 10 CGA for transfers; limited d/t pain and recent hip surgery Gait Does the Patient Walk?: Yes Mode of Locomotion: Walk Anticipated Mode of Locomotion: Walk Walk 10 feet (QC): 4 Walk 50 ft with 2 Turns(QC): 4 Walk 150 ft (QC): 4 Walking 10ft/uneven surface-QC: 88 Distance: 150' Gait Assistive Device: FWW Comments/Gait Description Slow, antalgic gait; frequent rests d/t abdominal cramping Wheelchair Training Does the Pt Use a Wheelchair?: No Wheel 50 ft with 2 turns (QC): 9 Wheel 150 ft (QC): 9 Type of Wheelchair: Manual Stairs 1 Step (curb) (QC): 88 4 Steps (QC): 9 12 Steps (QC): 9 Balance Sitting Static: Normal Sitting Dynamic: Normal Standing Static: Normal Standing Dynamic: Normal Picking up an Object (QC): 88 Assessment/Needs Patient able to stand from chair and ambulate to bathroom CGA with FWW. Patient performed toilet transfer with Rosy to help with cleaning and pulling up pants d/t hip surgery. Patient ambulated 150' at slow pace with antalgic gait, requi ring frequent rests d/t abdominal pain and cramping. Upon return to room, patient transferred to toilet again and was given call light cord to call nursing when she was done. 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 Operator Goals PT Fpc Goals Time Frame: Aug 19, 2019 Roll Left & Right (QC): 6 Sit to Lying (QC): 6 Lying-Sitting on Side/Bed(QC): 6 Sit to Stand (QC): 6 Chair/Xsr-em-Vusgd Xfer(QC): 6 Toilet Transfer (QC): 6 Car Transfer (QC): 6 Does the Patient Walk: Yes Walk 10 feet (QC): 6 Walk 50ft with 2 Turns (QC): 6 Walk 150 ft (QC): 6 Walking 10ft on Uneven Surface: 6 1 Step (curb) (QC): 6 4 Steps (QC): 9 12 Steps (QC): 9 Picking up an Object (QC): 6 Does the Pt use WC or Scooter?: No Type: N/A Type: N/A PT Plan Problem List Problem List: Activity Tolerance, Functional Strength, Safety, Balance, Gait, Transfer, Bed Mobility Treatment/Plan Treatment Plan: Continue Plan of Care Treatment Plan: Bed Mobility, Education, Functional Activity Daniele, Functional Strength, Gait, Safety, Therapeutic Exercise, Transfers Treatment Duration: Aug 19, 2019 Frequency: 6 times per week Estimated Hrs Per Day: .25 hour per day Patient and/or Family Agrees t: Yes Time/GCodes Time In: 1024 Time Out: 1042 Total Billed Treatment Time: 18 Total Billed Treatment 1 visit EVMod 18min FARZANA CLARKE PT Aug 05, 2019 12:00 POS
--- NOTE | 2019-08-05 12:46 | NUR ---
SPOKE WITH PT WELL GO THRU THE EXT MED HISTORY TO COMPLETE THE MED REC. PT WAS ABLE TO LIST ALL HER MEDICATIONS (THEY MATCHED THE EXT MED HISTORY) AND HOW/WHEN SHE TAKES EACH MED. PT HAS XARELTO AND ELIQUIS- WHEN THE PT WAS DISCHARGED AFTER HER SURGERY ON 07-31-2019 SHE WAS INSTRUCTED TO TAKE XARELTO 10MG FOR 10 DAYS AND WHEN THAT WAS FINISHED TO START BACK ON THE ELIQUIS. SHE SAYS SHE WAS ONLY A COUPLE DAYS INTO THE XARELTO WHEN SHE CAME HERE. PT SAYS SHE IS NO LONGER TAKING TRAMADOL OR IBUPROFEN, BOTH THESE ARE ON THE EXT MED HISTORY BUT HAVE BEEN DC'D OTC MEDS: APAP MELATONIN MTV MAGNESIUM
--- NOTE | 2019-08-05 13:03 | Occupational Therapy Eval ---
OT Evaluation-General/PLF Medical Diagnosis Admission Date Aug 03, 2019 at 11:27 Medical Diagnosis: small bowel obstruction Onset Date: Aug 03, 2019 Therapy Diagnosis Therapy Diagnosis: weakness, debility Height/Weight Height (Feet): 5 Height (Inches): 4.00 Weight (Pounds): 154 Weight (Ounces): 4.0 Precautions Precautions/Isolations: Contact Isolation, Fall Prevention Safety Interventions: None Weight Bear Status Weight Bearing Restriction: Weight Bearing/Tolerated Referral Physician: Dottie Referral Reason: Evaluation/Treatment Medical History Pertinent Medical History: Atrial Fib, HTN, Rheumatoid Arthritis Social History Home: Apartment Current Living Status: Alone Entry Into Home: Level Entry Pt reports having a caregiver for two hours, daily, to assist with all IADLs. ADL-Prior Level of Function SCALE: Activities may be completed with or without assistive devices. 9-Cmjckxmoch-tmrulgz completes the activity by him/herself with no assistance from a helper. 5-Set-up or Clean-up Assistance-helper sets up or cleans up; patient completes activity. [place] assists only prior to or following the activity. 4-Supervision or Touching Assistance-helper provides verbal cues and/or touching/steadying and/or contact guard assistance as patient completes activity. Assistance may be provided throughout the activity or intermittently. 3-Partial/Moderate Assistance-helper does LESS THAN HALF the effort. [place] lifts, holds or supports trunk or limbs, but provides less than half the effort. 2-Substantial/Maximal Assistance-helper does MORE THAN HALF the effort. [place] lifts or holds trunk or limbs and provides more than half the effort. 3-Mjvvswvhj-xbqrzy does ALL the effort. Patient does none of the effort to complete the activity. Or, the assistance of 2 or more helpers is required for the patient to complete the activity. If activity was not attempted, code reason: 7-Patient Refused. 9-Not Applicable-not attempted and the patient did not perform the activity before the current illness, exacerbation or injury. 10-Not Attempted due to Environmental Limitations-(lack of equipment, weather restraints, etc.). 88-Not Attempted due to Medical Conditions or Safety Concerns. Self Care: Independent Functional Cognition: Independent DME/Equipment: Bath Chair, Grab Bars, Reachers, Shower, Toilet/Riser DME/Equipment Comments Pt had a KATYA s/p one week ago, and states that she was sent home from the hospital with a warehouse assembly worker, but does not yet have a sock aide in place. Drive Self: Yes OT Current Status Subjective Pt asleep upon therapist arrival, however she was willing to participate in OT eval this date. Pain Numeric Pain Scale: 4 Location Body Site: Abdomen Pain Description: Ache, Dull Mental Status/Objective Patient Orientation: Person, Place, Normal For Age Current Upper Extremity ROM WFL Upper Extremity Coordination WFL Upper Extremity Sensation WFL Upper Extremity Strength 3+/5 ADL-Treatment Eating (QC): 7 Oral Hygiene (QC): 4 (CGA to perform oral hygiene with pt standing at sink. ) Shower/Bathe Self (QC): 7 (Pt refused stating she was "too tired.") Upper Body Dressing (QC): 3 (Pt required Deborah to manage hospital gown. ) Lower Body Dressing (QC): 2 (MaxA for donning/doffing undergarments. ) On/Off Footwear (QC): 1 (Pt did not attempt to assist therapist with donning gripper socks. ) Toileting Hygiene (QC): 4 (CGA for toileting hygiene. ) Toilet Transfer (QC): 4 (CGA) Other Treatments Pt required CGA and increased time for all functional mobility throughout her environment. Pt required verbal cues for upright postural control and proper positioning during standing activities. Pt fatigues quickly. Education OT Patient Education: Correct positioning, Energy conservation, Modified ADL techniques, Progress toward Goal/Update tx plan, Purpose of tx/functional activities, Reviewed precautions, Rehab process, Safety issues, Transfer techniques, Use of adapted equipment Teaching Recipient: Patient Teaching Methods: Demonstration, Discussion Response to Teaching: Verbalize Understanding, Return Demonstration, Reinforcement Needed OT Short Term Goals Short Term Goals Time Frame: Aug 09, 2019 Eatin Oral hygiene: 6 Toileting hygiene: 5 Shower/bathe self: 5 Upper body dressin Lower body dressin Putting on/taking off footwear: 5 OT Chcf Goals Chcf Goals Time Frame: Aug 12, 2019 Eating (QC): 6 Oral Hygiene (QC): 6 Toileting Hygiene (QC): 6 Shower/Bathe Self (QC): 6 Upper Body Dressing (QC): 6 Lower Body Dressing (QC): 6 On/Off Footwear (QC): 6 1=Demonstrate adherence to instructed precautions during ADL tasks. 2=Patient will verbalize/demonstrate understanding of assistive devices/modifi cations for ADL. 3=Patient will improve strength/tolerance for activity to enable patient to perform ADL's. OT Education/Plan Problem List/Assessment Assessment: Decreased Activ Tolerance, Decreased Safety Aware, Decreased UE Strength, Impaired Funct Balance Discharge Recommendations Plan/Recommendations: Continue POC Therapy Discharge Recommendati: Intermittent Supervision (Pt would benefit from supervision as she is weak and unsteady while standing at this time. Pt plans on returning to home, and states that she is not interested in attending a SNF program.) Equpiment Recommendations-D/C: Toilet Riser with Rails, Bath Chair, Extended Shower Sprayer, Histology Specialist, Hip Kit, Long Shoe Horn, URSULA Hose Delmy, Toilet Riser Treatment Plan/Plan of Care Patient would benefit from OT for education, treatment and training to promote independence in ADL's, mobility, safety and/or upper extremity function for ADL's. Plan of Care: ADL Retraining, Functional Mobility, Group Exercise/Act as Ind, UE Funct Exercise/Act, UE Neuromus Re-Ed/Coord Treatment Duration: Aug 12, 2019 Frequency: 6 times per week Estimated Hrs Per Day: .5 hour per day Rehab Potential: Fair Time/GCodes Start Time: 12:30 Stop Time: 11:00 Total Time Billed (hr/min): 40 Billed Treatment Time 1EVM, ADL2 JOSE THOMAS OT Aug 05, 2019 13:03 POS
--- NOTE | 2019-08-05 15:31 | Progress Note ---
Subjective Date Seen by a Provider: Aug 05, 2019 Time Seen by a Provider: 15:15 Subjective/Events-last exam Patient seen with Dr. Kraus. Patient reports doing ok. Patient is having diarrhea stools. No N/V. No F/C. No abdominal pain. Tolerating diet and ambulating. Focused Exam Lactate Level 08/04/19 16:40: Lactic Acid Level 1.08 Objective Exam Vital Signs Date Time Temp Pulse Resp B/P (MAP) Pulse Ox O2 Delivery O2 Flow Rate FiO2 08/05/19 14:34 97 Room Air 08/05/19 13:00 89 08/05/19 11:57 36.7 102 20 125/76 (92) 100 Room Air 08/05/19 09:18 106 159/67 (97) 08/05/19 08:00 96 Room Air 08/05/19 07:30 36.8 94 22 130/77 (94) 98 Room Air 08/05/19 07:00 83 08/05/19 03:38 36.5 90 20 124/76 (92) 97 Room Air 08/05/19 01:00 103 08/05/19 00:00 37.2 94 18 114/63 (80) 97 Room Air 08/04/19 20:28 37.4 08/04/19 20:24 98 Room Air 08/04/19 20:00 Room Air 08/04/19 19:43 38.1 84 20 128/73 (91) 97 Room Air 08/04/19 19:00 113 08/04/19 16:13 37.8 111 20 124/79 (94) 97 Room Air I & O 08/05/19 07:00 Intake Total 2220 ml Output Total 152 ml Balance 2068 ml Capillary Refill : Less Than 3 SecondsLess Than 3 Seconds General Appearance: No Apparent Distress, WD/WN Neck: Full Range of Motion, Non Tender, Supple Respiratory: Normal Breath Sounds, No Accessory Muscle Use, No Respiratory Distress Cardiovascular: No Edema, No Murmur Gastrointestinal: normal bowel sounds, non tender, soft, other (Incisional abdominal hernia which is reducible.) Extremity: Normal Capillary Refill, Normal Inspection, Normal Range of Motion Neurologic/Psychiatric: Alert, Oriented x3 Skin: Normal Color, Warm/Dry Results Lab Laboratory Tests 08/04/19 16:40: White Blood Count 4.3, Red Blood Count 2.89L, Hemoglobin 8.5L, Hematocrit 28L, Mean Corpuscular Volume 95, Mean Corpuscular Hemoglobin 29, Mean Corpuscular Hemoglobin Concent 31L, Red Cell Distribution Width 14.5, Platelet Count 331, Mean Platelet Volume 8.6, Neutrophils (%) (Auto) 56, Lymphocytes (%) (Auto) 17, Monocytes (%) (Auto) 24H, Eosinophils (%) (Auto) 3, Basophils (%) (Auto) 0, Neutrophils # (Auto) 2.4, Lymphocytes # (Auto) 0.7L, Monocytes # (Auto) 1.0, Eosinophils # (Auto) 0.1, Basophils # (Auto) 0.0, Neutrophils % (Manual) 60, Lymphocytes % (Manual) 11, Monocytes % (Manual) 26, Eosinophils % (Manual) 3, Basophils % (Manual) 0, Band Neutrophils 0, Anisocytosis SLIGHT, Sodium Level 138, Potassium Level 4.5, Chloride Level 106, Carbon Dioxide Level 25, Anion Gap 7, Blood Urea Nitrogen 13, Creatinine 1.05, Estimat Glomerular Filtration Rate 52, BUN/Creatinine Ratio 12, Glucose Level 124H, Lactic Acid Level 1.08, Calcium Level 8.4L, Corrected Calcium 9.0, Total Bilirubin 0.6, Aspartate Amino Transf (AST/SGOT) 35H, Alanine Aminotransferase (ALT/SGPT) 27, Alkaline Phosphatase 131, Total Protein 5.6L, Albumin 3.3 08/05/19 09:58: White Blood Count 3.7L, Red Blood Count 2.75L, Hemoglobin 8.1L, Hematocrit 27L, Mean Corpuscular Volume 96, Mean Corpuscular Hemoglobin 30, Mean Corpuscular Hemoglobin Concent 31L, Red Cell Distribution Width 14.6H, Platelet Count 311, Mean Platelet Volume 8.2, Neutrophils (%) (Auto) 51, Lymphocytes (%) (Auto) 23, Monocytes (%) (Auto) 23H, Eosinophils (%) (Auto) 3, Basophils (%) (Auto) 0, Neutrophils # (Auto) 1.9, Lymphocytes # (Auto) 0.9L, Monocytes # (Auto) 0.8, Eosinophils # (Auto) 0.1, Basophils # (Auto) 0.0, Sodium Level 136, Potassium Level 4.9, Chloride Level 106, Carbon Dioxide Level 23, Anion Gap 7, Blood Urea Nitrogen 13, Creatinine 0.95, Estimat Glomerular Filtration Rate 59, BUN/Creatinine Ratio 14, Glucose Level 113H, Calcium Level 8.1L, Corrected Calcium 8.8, Total Bilirubin 0.6, Aspartate Amino Transf (AST/SGOT) 54H, Alanine Aminotransferase (ALT/SGPT) 43, Alkaline Phosphatase 128, Total Protein 5.7L, Albumin 3.1L Microbiology 08/04/19 Blood Culture - Preliminary, Resulted No growth Assessment/Plan Assessment/Plan Assess & Plan/Chief Complaint A 68 year old female with PSBO and incisional hernia that is reducible. VSS. IV fluids, pain and nausea meds prn. PUD prophylaxis Ambulation. Tolerating clear liquid diet, will advance to DYS3. If patient tolerates diet, they can be DC'd home from surgical standpoint, but may need to follow up to repair incisional hernia as outpatient. Clinical Quality Measures DVT/VTE Risk/Contraindication: Risk Factor Score Per Nursin RFS Level Per Nursing on Admit: 4+=Very High EMY LEVY RACKMAN Aug 05, 2019 15:31 POS
[2019-08-05] MEDS: PROMETHAZINE INJ 25 MG/ML (PHENERGAN) AMP IV PRN (21:04)
[2019-08-05] MEDS: APIXABAN 5 MG (ELIQUIS) TABLET PO SCH (21:04)
[2019-08-06] MEDS: HYDROmorphone 2 MG/ML VIAL (DILAUDID) IV PRN ×3 (02:53→23:53)
[2019-08-06] MEDS: ONDANSETRON 4 MG/2 ML (SDV) Z0FRAN IV PRN ×2 (02:53→08:55)
[2019-08-06 03:49] VITALS: BP 115/76
[2019-08-06] MEDS: D5 1/2 NS W/KCL 20 MEQ/L 1,000 ML IV SCH ×3 (04:21→23:53)
[2019-08-06 05:48] LABS: BASOPHILS % (AUTO) 0 % (0-10); EOSINOPHILS # (AUTO) 0.1 10^3/uL (0.0-0.3); EOSINOPHILS % (AUTO) 2 % (0-10); HEMATOCRIT 26 % (35-52); LYMPHOCYTES # (AUTO) 0.6 X 10^3 (1.0-4.0); LYMPHOCYTES % (AUTO) 10 % (12-44); MEAN CORPUSCULAR HEMOGLOBIN 29 PG (25-34); MEAN CORPUSCULAR HGB CONC 31 G/DL (32-36); MEAN CORPUSCULAR VOLUME 95 FL (80-99); MEAN PLATELET VOLUME 7.9 FL (7.4-10.4); MONOCYTES # (AUTO) 1.2 X 10^3 (0.0-1.0); MONOCYTES % (AUTO) 19 % (0-12); NEUTROPHILS # (AUTO) 4.1 X 10^3 (1.8-7.8); NEUTROPHILS % (AUTO) 68 % (42-75); PLATELET COUNT 370 10^3/uL (130-400); RED CELL DISTRIBUTION WIDTH 14.9 % (10.0-14.5); WHITE BLOOD COUNT 6.1 10^3/uL (4.3-11.0)
[2019-08-06 06:11] LABS: BILIRUBIN,TOTAL 0.6 MG/DL (0.1-1.0); CREATININE SERUM 1.04 MG/DL (0.60-1.30); POTASSIUM 5.2 MMOL/L (3.6-5.0); TOTAL PROTEIN 5.2 GM/DL (6.4-8.2)
[2019-08-06] MEDS: PROMETHAZINE INJ 25 MG/ML (PHENERGAN) AMP IV PRN ×2 (06:36→10:39)
[2019-08-06 07:38] VITALS: BP 158/73
[2019-08-06] MEDS: RT-ALBUTEROL SULF 2.5 MG/3 ML PRE-MIX VIAL INH SCH ×3 (08:03→19:05)
[2019-08-06] MEDS: FAMOTIDINE 20MG/2ML IV (PEPCID) IV SCH (08:52)
[2019-08-06] MEDS: lisINopril 10 MG (PRINIVIL) TABLET PO SCH (08:53)
[2019-08-06] MEDS: DILTIAZEM 30 MG (CARDIZEM) TAB PO SCH ×3 (08:53→20:07)
[2019-08-06] MEDS: APIXABAN 5 MG (ELIQUIS) TABLET PO SCH ×2 (08:54→20:07)
--- NOTE | 2019-08-06 08:56 | NUR ---
NOTE THAT SCANNER NOT POWERING UP -- CHECKED LINES AND TURNED OFF AND ON
--- NOTE | 2019-08-06 09:33 | Physical Therapy Progress Note ---
Therapy Progress Note Patient declined treatment twice this morning d/t reported nausea/vomiting. 1 visit, 0 tx 9:05am FARZANA CLARKE PT Aug 06, 2019 09:33 POS
--- NOTE | 2019-08-06 09:40 | Progress Note - Hospitalist ---
Subjective HPI/CC On Admission Date Seen by Provider: Aug 06, 2019 Time Seen by Provider: 09:00 Chief complaint: Small bowel obstruction History of present illness: This is a 68-year-old white female clinic patient of [facility] who presents to the ER with abdominal pain found to have small bowel obstruction. Patient has a history of small bowel obstruction 2 years ago. She does have a ventral hernia that could be complicating the situation. Dr. Kraus has been consulted. Patient was placed on supportive care with IV fluid antiemetics and pain medication. She just recently had a right hip replacement by Dr. Lagos in [place] last Monday O and discharged 2 days later to home where she lives alone. She started having additional issues with abdominal pain and nausea and worsened so she presented to the ER. Patient is currently now experiencing a productive cough and low-grade fever. Will initiate the sepsis protocol. Subjective/Events-last exam Patient was doing very well until this morning when she began having nausea and vomiting Abdominal pain has increased also Will place nothing by mouth and recheck to Dr. Kraus Patient had been doing so well that she was preparing for discharge today Check labs and meds Denies any other significant problems Review of Systems General: Fatigue Gastrointestinal: Nausea, Vomiting, Abdominal Pain Musculoskeletal: leg pain Focused Exam Lactate Level 08/04/19 16:40: Lactic Acid Level 1.08 Objective Exam Vital Signs Vital Signs Date Time Temp Pulse Resp B/P (MAP) Pulse Ox O2 Delivery O2 Flow Rate FiO2 08/06/19 08:03 Room Air 08/06/19 07:38 36.3 108 20 158/73 (101) 97 08/03/19 18:52 2.00 2.00 Capillary Refill : Less Than 3 SecondsLess Than 3 Seconds General Appearance: No Apparent Distress, WD/WN, Chronically ill Respiratory: Chest Non Tender, Lungs Clear, Normal Breath Sounds, No Accessory Muscle Use, No Respiratory Distress, Decreased Breath Sounds Cardiovascular: Regular Rate, Rhythm, No Edema, No Gallop, No JVD, No Murmur, Normal Peripheral Pulses Gastrointestinal: Normal Bowel Sounds, Tenderness Neurologic/Psychiatric: Alert, Oriented x3, No Motor/Sensory Deficits, Normal Mood/Affect Results/Procedures Lab Laboratory Tests 08/06/19 05:44 Patient resulted labs reviewed. Assessment/Plan Assessment and Plan Assess & Plan/Chief Complaint Assessment: SBO acute w/h/o SBO 2017 Ventral hernia Productive cough with low grade fever yesterday at 1600 ordered septic w/u but it was negative and fever resolved Recent right hip replacement POD # 8 Dr Lagos in [place] Plan: IVF Nothing by mouth until Dr. Kraus approves of intake by mouth Dr Kraus consultation for recurrent nausea and vomiting and abdominal pain today Septic w/u negative Diagnosis/Problems Diagnosis/Problems (1) Small bowel obstruction Status: Acute (2) Chronic atrial fibrillation Status: Acute (3) COPD (chronic obstructive pulmonary disease) Status: Acute (4) Abdominal pain Status: Acute Clinical Quality Measures DVT/VTE Risk/Contraindication: Risk Factor Score Per Nursin RFS Level Per Nursing on Admit: 4+=Very High TALIA VALENCIA DO Aug 06, 2019 09:40 POS
--- NOTE | 2019-08-06 10:51 | Cardiology Progress Note ---
Cardiology SOAP Progress Note Subjective: Continues to have belly discomfort. Objective: I&O/Vital Signs 08/05/19 08/06/19 08/06/19 08/06/19 23:30 01:00 03:49 07:00 Temp 36.6 36.7 Pulse 92 84 92 104 Resp 20 20 B/P (MAP) 127/79 (95) 115/76 (89) Pulse Ox 94 94 O2 Delivery Room Air Room Air 08/06/19 08/06/19 08/06/19 07:38 08:00 08:03 Temp 36.3 Pulse 108 Resp 20 B/P (MAP) 158/73 (101) Pulse Ox 97 O2 Delivery Room Air Room Air Room Air 08/06/19 00:00 Intake Total 2840 ml Balance 2840 ml Weight (Pounds): 154 Weight (Ounces): 4.0 Weight (Calculated Kilograms): [id number] Constitutional: appears stated age, AAO x 3, apparent distress, well-developed, well-nourished Respiratory: chest is bilaterally symmetric, lungs clear to auscultation Cardiovascular: irregularly irregular, tachycardia, S1 and S2 Gastrointestional: tenderness, abnormal bowel sounds; No spleenomegaly Extremities: normal range of motion, non-tender, normal inspection; No clubbing, No cyanosis; no lower extremity edema bilateral; No significant edema Neurologic/Psychiatric: no motor/sensory deficits, alert, normal mood/affect, oriented x 3, power is 5/5 both on sides Skin: normal color; No rash, No ulcerations Results/Procedures: Labs Laboratory Tests 08/06/19 05:44: White Blood Count 6.1, Red Blood Count 2.74L, Hemoglobin 8.0L, Hematocrit 26L, Mean Corpuscular Volume 95, Mean Corpuscular Hemoglobin 29, Mean Corpuscular Hemoglobin Concent 31L, Red Cell Distribution Width 14.9H, Platelet Count 370, Mean Platelet Volume 7.9, Neutrophils (%) (Auto) 68, Lymphocytes (%) (Auto) 10L, Monocytes (%) (Auto) 19H, Eosinophils (%) (Auto) 2, Basophils (%) (Auto) 0, Neutrophils # (Auto) 4.1, Lymphocytes # (Auto) 0.6L, Monocytes # (Auto) 1.2H, Eosinophils # (Auto) 0.1, Basophils # (Auto) 0.0, Sodium Level 133L, Potassium Level 5.2H, Chloride Level 106, Carbon Dioxide Level 19L, Anion Gap 8, Blood Urea Nitrogen 11, Creatinine 1.04, Estimat Glomerular Filtration Rate 53, BUN/Creatinine Ratio 11, Glucose Level 122H, Calcium Level 8.0L, Corrected Calcium 8.8, Total Bilirubin 0.6, Aspartate Amino Transf (AST/SGOT) 45H, Alanine Aminotransferase (ALT/SGPT) 49, Alkaline Phosphatase 139H, Total Protein 5.2L, Albumin 3.0L Microbiology 08/04/19 Blood Culture - Preliminary, Resulted No growth 08/04/19 Gram Stain - Final, Complete 08/04/19 Sputum Culture - Final, Complete Usual upper respiratory maria e A/P: Assessment/Dx: Small bowel obstruction, Recent hip replacement, Narcotic medications use, Hypokalemia, Hypercalcemia, Elevated LFTs, Long-standing persistent atrial fibrillation with RVR, on oral anticoagulation, Hypertension Plan: Small bowel obstruction, deferred to the surgical team. Recent hip replacement, Narcotic medications use, could have contributing to small bowel obstruction. Hypokalemia, replace potassium.?contributing to bowel obstruction. Hypercalcemia, deferred to the primary team. Elevated LFTs, Long-standing persistent atrial fibrillation with RVR, on oral anticoagulation. started Eliquis 5 mg twice a day on 08/05/2019. Hypertension: By mouth lisinopril. Thank you for your consultation. Please call me if you have any questions. Nehemias Paula MD, FACP, FACC, FSCAI, FHRS, CCDS Interventional Cardiology Cardiac Electrophysiology Vascular Medicine and Endovascular Interventions Focused Exam Lactate Level 08/04/19 16:40: Lactic Acid Level 1.08 Silvia PAULA MD Aug 06, 2019 10:51 POS
[2019-08-06 11:12] VITALS: BP 128/82
--- NOTE | 2019-08-06 11:58 | Physical Therapy Progress Note ---
Therapy Progress Note Patient declined physical therapy treatment for the third time this morning d/t nausea, stating she explained to MD. States she is hoping to go home tomorrow. 1 visit, 0 tx 11:30am FARZANA CLARKE PT Aug 06, 2019 11:58 POS
--- NOTE | 2019-08-06 13:51 | Occ Therapy Progress Note ---
Therapy Progress Note Pt stated that she feels nauseous and is tired. Pt refuses therapy. COATS encourages pt to participate, pt continues to refuse. Will check on pt tomorrow. MYRNA ANDERSON Aug 06, 2019 13:51 POS
[2019-08-06] MEDS ORDERED: DIATRIZOATE MEGLUM/SODIUM 37% 120 ML (GASTROGRAFIN) PO ONE (15:00)
[2019-08-06 16:00] VITALS: BP 110/71
--- NOTE | 2019-08-06 16:33 | NUR ---
pastoral care visit.
--- NOTE | 2019-08-06 18:30 | NUR ---
NOTE THAT PT IS HAVING GASTROGRAFIN SM BOWEL FOLLOW THRU -- SHE HAS BEEN NPO AND PT WAS TAKING DOWN AT 1800 AND SCAN WAS DONE -- PT TO REMAIN NPO AND WILL HAVE SCAN IN AM (PT HAS BEEN HAVING WATERY DIARRHEA STOOLS SINCE GETTING THE GASTROGRAFIN BUT SOME BLOCKAGE SHOWING PER STAFF) DR RODAS WAS CALLED ND MESSAGE WAS LEFT FOR HIM -- HE RESPONDED HANKS--NO NEW ORDERS
--- NOTE | 2019-08-06 18:47 | Progress Note ---
Subjective Date Seen by a Provider: Aug 06, 2019 Time Seen by a Provider: 14:00 Subjective/Events-last exam PSBO vs. SBO secondary adhesions. sbft today with delayed film tomorrow. ambulate. OOPB-chair and ambultale. Focused Exam Lactate Level 08/04/19 16:40: Lactic Acid Level 1.08 Objective Exam Vital Signs Date Time Temp Pulse Resp B/P (MAP) Pulse Ox O2 Delivery O2 Flow Rate FiO2 08/06/19 16:00 37.0 97 18 110/71 (84) 93 Room Air 08/06/19 14:09 Room Air 08/06/19 13:55 94 Room Air 08/06/19 12:13 95 08/06/19 11:12 36.2 104 20 128/82 (97) 98 Room Air 08/06/19 08:03 Room Air 08/06/19 08:00 Room Air 08/06/19 07:38 36.3 108 20 158/73 (101) 97 Room Air 08/06/19 07:00 104 08/06/19 03:49 36.7 92 20 115/76 (89) 94 Room Air 08/06/19 01:00 84 08/05/19 23:30 36.6 92 20 127/79 (95) 94 Room Air 08/05/19 21:13 Room Air 08/05/19 20:00 Room Air 08/05/19 19:14 36.8 80 20 129/67 (87) 99 Room Air 08/05/19 19:00 85 I & O 08/06/19 07:00 Intake Total 4240 ml Balance 4240 ml Capillary Refill : Less Than 3 SecondsLess Than 3 Seconds General Appearance: No Apparent Distress HEENT: PERRL/EOMI Neck: Full Range of Motion Respiratory: Chest Non Tender, Lungs Clear Cardiovascular: Regular Rate, Rhythm Gastrointestinal: normal bowel sounds, soft, guarding, rebound Extremity: Normal Capillary Refill, Normal Inspection Neurologic/Psychiatric: Alert, Oriented x3 Skin: Normal Color, Warm/Dry Lymphatic: No Adenopathy Results Lab Laboratory Tests 08/06/19 05:44: White Blood Count 6.1, Red Blood Count 2.74L, Hemoglobin 8.0L, Hematocrit 26L, Mean Corpuscular Volume 95, Mean Corpuscular Hemoglobin 29, Mean Corpuscular Hemoglobin Concent 31L, Red Cell Distribution Width 14.9H, Platelet Count 370, Mean Platelet Volume 7.9, Neutrophils (%) (Auto) 68, Lymphocytes (%) (Auto) 10L, Monocytes (%) (Auto) 19H, Eosinophils (%) (Auto) 2, Basophils (%) (Auto) 0, Neutrophils # (Auto) 4.1, Lymphocytes # (Auto) 0.6L, Monocytes # (Auto) 1.2H, Eosinophils # (Auto) 0.1, Basophils # (Auto) 0.0, Sodium Level 133L, Potassium Level 5.2H, Chloride Level 106, Carbon Dioxide Level 19L, Anion Gap 8, Blood Urea Nitrogen 11, Creatinine 1.04, Estimat Glomerular Filtration Rate 53, BUN/Creatinine Ratio 11, Glucose Level 122H, Calcium Level 8.0L, Corrected Calcium 8.8, Total Bilirubin 0.6, Aspartate Amino Transf (AST/SGOT) 45H, Alanine Aminotransferase (ALT/SGPT) 49, Alkaline Phosphatase 139H, Total Protein 5.2L, Albumin 3.0L Microbiology 08/04/19 Blood Culture - Preliminary, Resulted No growth 08/04/19 Gram Stain - Final, Complete 08/04/19 Sputum Culture - Final, Complete Usual upper respiratory maria e Assessment/Plan Assessment/Plan Assess & Plan/Chief Complaint PSOB obstr. vs. SBO. await delayed films. Clinical Quality Measures DVT/VTE Risk/Contraindication: Risk Factor Score Per Nursin RFS Level Per Nursing on Admit: 4+=Very High FATUMA RODAS MD Aug 06, 2019 18:47 POS
[2019-08-06 20:00] VITALS: BP 132/69
[2019-08-07] VITALS: BP 96/63
[2019-08-07 03:39] VITALS: BP 135/73
[2019-08-07 04:00] VITALS: BP 135/73
[2019-08-07] MEDS: HYDROmorphone 2 MG/ML VIAL (DILAUDID) IV PRN (05:37)
[2019-08-07 07:30] VITALS: BP 104/68
[2019-08-07] MEDS: RT-ALBUTEROL SULF 2.5 MG/3 ML PRE-MIX VIAL INH SCH (08:30)
[2019-08-07] MEDS: lisINopril 10 MG (PRINIVIL) TABLET PO SCH (08:44)
[2019-08-07] MEDS: APIXABAN 5 MG (ELIQUIS) TABLET PO SCH (08:44)
[2019-08-07] MEDS: DILTIAZEM 30 MG (CARDIZEM) TAB PO SCH ×2 (08:44→13:32)
[2019-08-07] MEDS: FAMOTIDINE 20MG/2ML IV (PEPCID) IV SCH (08:44)
[2019-08-07] MEDS: D5 1/2 NS W/KCL 20 MEQ/L 1,000 ML IV SCH (08:45)
--- NOTE | 2019-08-07 08:47 | Diagnostic Imaging Report ---
EXAMINATION: Small bowel follow-through. INDICATION: Abdominal pain. FINDINGS: The preliminary film reveals multiple dilated gas filled segments of small bowel. The patient was able to swallow the contrast material without difficulty. She did vomit soon after swallowing much of the contrast. At 3 hours, there does seem to be some contrast within the colon. This would weigh against the diagnosis of a complete obstruction. A delayed 13 hour film reveals that there is indeed contrast within the colon. This would indicate that there is not a complete obstruction of the small bowel. The dilated appearance of the small bowel could be secondary to an ileus. The possibility of a partial or intermittent obstruction should still be considered. IMPRESSION: 1. There is no evidence for a complete obstruction of the small bowel. 2. These results were discussed with Dr. Kraus. Dictated by: Dictated on workstation # [id number]
--- NOTE | 2019-08-07 09:04 | NUR ---
prior to a.m. medications pulse was 91 bpm and b/p was 104//68
--- NOTE | 2019-08-07 09:05 | Physical Therapy Daily Note ---
PT Daily Note-Current Subjective Pt agreeable to PT session but requiring max encouragement. Pt states she is trying to do a little of her HEP she was doing before but hasn't been doing much of them. Pain Numeric Pain Scale: 7 Comment: abdomen and hip Appearance Pt sitting up in recliner awake and alert upon arrival. At end of session, pt sitting up in recliner with LE's elevated , call light, phone and bedside table within reach. Mental Status Patient Orientation: Person, Place, Time, Eyes Open, Situation Attachments: IV Transfers SCALE: Activities may be completed with or without assistive devices. 1-Oebhvdtbql-cjijals completes the activity by him/herself with no assistance from a helper. 5-Set-up or Clean-up Assistance-helper sets up or cleans up; patient completes activity. [place] assists only prior to or following the activity. 4-Supervision or Touching Assistance-helper provides verbal cues and/or touching/steadying and/or contact guard assistance as patient completes activity. Assistance may be provided throughout the activity or intermittently. 3-Partial/Moderate Assistance-helper does LESS THAN HALF the effort. [place] lifts, holds or supports trunk or limbs, but provides less than half the effort. 2-Substantial/Maximal Assistance-helper does MORE THAN HALF the effort. [place] lifts or holds trunk or limbs and provides more than half the effort. 6-Jilstdzjn-uocyvu does ALL the effort. Patient does none of the effort to complete the activity. Or, the assistance of 2 or more helpers is required for the patient to complete the activity. If activity was not attempted, code reason: 7-Patient Refused. 9-Not Applicable-not attempted and the patient did not perform the activity before the current illness, exacerbation or injury. 10-Not Attempted due to Environmental Limitations-(lack of equipment, weather restraints, etc.). 88-Not Attempted due to Medical Conditions or Safety Concerns. Sit to Stand (QC): 4 (SBA) Gait Training Does the Patient Walk?: Yes Distance: 184 Walk 10 feet (QC): 4 (SBA) Walk 50 ft with 2 Turns(QC): 4 (SBA) Walk 150 ft (QC): 4 (SBA during gait, CGA for safety due to slight unsteadiness with one turn) Gait Persons Needed: 1 Gait Assistive Device: FWW fwd flexed and occasional standing rest breaks due to abdominal pain, slight antalgic due to hip pain, slow pace, decreased step length and height Treatments education, safety, gait, transfers, functional mobility, activity tolerance Assessment Current Status: Fair Progress pt limits what she will participate in during therapy visit 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 PT Halfway Goals Time Frame: Aug 19, 2019 Roll Left & Right (QC): 6 Sit to Lying (QC): 6 Lying-Sitting on Side/Bed(QC): 6 Sit to Stand (QC): 6 Chair/Udu-hv-Rqbdm Xfer(QC): 6 Toilet Transfer (QC): 6 Car Transfer (QC): 6 Does the Patient Walk: Yes Walk 10 feet (QC): 6 Walk 50ft with 2 Turns (QC): 6 Walk 150 ft (QC): 6 Walking 10ft on Uneven Surface: 6 1 Step (curb) (QC): 6 4 Steps (QC): 9 12 Steps (QC): 9 Picking up an Object (QC): 6 Does the Pt use WC or Scooter?: No Type: N/A Type: N/A PT Plan Treatment/Plan Treatment Plan: Continue Plan of Care Treatment Plan: Bed Mobility, Education, Functional Activity Daniele, Functional Strength, Gait, Safety, Therapeutic Exercise, Transfers Treatment Duration: Aug 19, 2019 Frequency: 6 times per week Estimated Hrs Per Day: .25 hour per day Patient and/or Family Agrees t: Yes Safety Risks/Education Patient Education: Gait Training, Transfer Techniques, Safety Issues Teaching Recipient: Patient Teaching Methods: Discussion Response to Teaching: Verbalize Understanding Time/GCodes Time In: 840 Time Out: 906 Total Billed Treatment Time: 26 Total Billed Treatment 1 visit, GT x15 min, FA x11 min 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
[2019-08-07] MEDS ORDERED: LISI10TA2 PO (09:41)
[2019-08-07] MEDS ORDERED: PROM25TA14 PO (09:41)
--- NOTE | 2019-08-07 09:42 | Discharge Summary ---
Discharge Summary Hospital Course Was the Problem List Reviewed?: Yes Problems/Dx: (1) Small bowel obstruction Status: Acute (2) Chronic atrial fibrillation Status: Acute (3) COPD (chronic obstructive pulmonary disease) Status: Acute (4) Abdominal pain Status: Acute Hospital Course Date of Admission: Aug 03, 2019 at 11:27 Admission Diagnosis : Family Physician/Provider: Elpidio Stout MD Date of Discharge: 08/07/19 Discharge Diagnosis: PSBO, recent right hip replacement Hospital Course: Hospital Course: Pt had an uneventful hospital course for 5 days after she was admitted for small bowel obstruction, Dr. Kraus was consulted, NPO status maintained while NG tube placed. She was managed conservatively and all home medications were restarted including anticoagulation for recent hip replacement on the right by Dr. Serrano in [place]. Overall she did very well, oxygen was weaned, Dr. Braga consult initiated and was deemed stable for DC after tolerating adequate diet, bowels were moving and she felt comfortable to go home. Labs and Pending Lab Test: Microbiology 08/04/19 Blood Culture - Preliminary, Resulted No growth 08/04/19 Gram Stain - Final, Complete 08/04/19 Sputum Culture - Final, Complete Usual upper respiratory maria e Home Meds Active Reported Acetaminophen 500 Mg Tablet 500 Mg PO Q6H PRN One Daily For Women 50+ Adv Tb (Multivitamins-Min/FA/Ginkgo) 1 Each Tablet 1 Eac h PO DAILY Xarelto (Rivaroxaban) 10 Mg Tablet 10 Mg PO DAILY DAILY TIMES TEN DAYS POST HIP SURGRY, STARTED ON 07/31/19 Eliquis (Apixaban) 5 Mg Tablet 5 Mg PO BID START AFTER XARELTO DOSE IS COMPLETE Oxycodone-Acetaminophen 5-325 (Oxycodone HCl/Acetaminophen) 1 Each Tablet 1 Each PO Q6H PRN MDD 6 Potassium Chloride 10 Meq Tablet.er 10 Meq PO DAILY Ventolin Hfa (Albuterol Sulfate) 18 Gm Hfa.aer.ad 2 Puff IH Q4H PRN Magnesium Oxide 400 Mg Tablet 400 Mg PO DAILY Furosemide 20 Mg Tablet 20 Mg PO DAILY Sucralfate 1 Gm Tablet 1 Gm PO QID Diltiazem HCl 30 Mg Tablet 30 Mg PO TID Melatonin 3 Mg Tablet 3 Mg PO HS PRN Assessment/Pt Instructions [facility] in 1 week Discharge Planning: <30 minutes discharge planning Discharge Instructions Discharge Diet: Low Residue Pneumonia Vaccine Order Indica: Yes Discharge Physical Examination Vital Signs Vital Signs Date Time Temp Pulse Resp B/P (MAP) Pulse Ox O2 Delivery O2 Flow Rate FiO2 08/07/19 08:30 94 Room Air 08/07/19 07:30 36.6 91 18 104/68 (80) 08/03/19 18:52 2.00 2.00 General Appearance: No Apparent Distress, WD/WN Respiratory: Chest Non Tender, Lungs Clear, Normal Breath Sounds, No Accessory Muscle Use, No Respiratory Distress Cardiovascular: Regular Rate, Rhythm, No Edema, No Gallop, No JVD, No Murmur, Normal Peripheral Pulses Neurologic/Psychiatric: Alert, Oriented x3, No Motor/Sensory Deficits, Normal Mood/Affect Allergies: Coded Allergies: Penicillins (Unverified Allergy, Unknown, 04/30/16) codeine (Unverified Allergy, Unknown, dizziness, 05/03/16) pt reports she has had morphine before and has had no problems with it Uncoded Allergies: MYACIN (Allergy, Unknown, 09/06/15) Discharge Summary Date of Admission Aug 03, 2019 at 11:27 Date of Discharge Discharge Date: Aug 07, 2019 Admission Diagnosis Assessment: SBO acute w/h/o SBO 2017 Ventral hernia Productive cough with low grade fever today at 1600 ordered septic w/u Recent right hip replacement POD # 7 Dr Lagos in [place] Plan: IVF NPO Dr Kraus consultation Septic w/u for productive cough and low grade fever today Discharge Diagnosis Assessment: SBO acute w/h/o SBO 2017 Ventral hernia Productive cough with low grade fever yesterday at 1600 ordered septic w/u but it was negative and fever resolved Recent right hip replacement POD # 8 Dr Lagos in [place] Plan: IVF Nothing by mouth until Dr. Kraus approves of intake by mouth Dr Kraus consultation for recurrent nausea and vomiting and abdominal pain today Septic w/u negative (1) Small bowel obstruction Status: Acute (2) Chronic atrial fibrillation Status: Acute (3) COPD (chronic obstructive pulmonary disease) Status: Acute (4) Abdominal pain Status: Acute Clinical Quality Measures DVT/VTE Risk/Contraindication: Risk Factor Score Per Nursin RFS Level Per Nursing on Admit: 4+=Very High TALIA VALENCIA DO Aug 07, 2019 09:42 POS
--- NOTE | 2019-08-07 10:45 | NUR ---
RD ASSESSMENT PMHx: afib; HTN; liver disease; osteoporosis PT INTERACTION: Pt was awake and pleasant during nutrition assessment. Pt states current appetite is "gaining," but it had been poor starting on 08/02. Note pt avg PO intake of 43% x2d, and pt was NPO on 08/06, per chart review. Pt states following a regular diet at home, where she lives alone. Pt states no recent issues with chewing/swallowing at this time. Pt states some episodes of nausea and vomiting. Note pt currently on zofran PRN, and pt had 2 episodes of emesis on 08/06, per chart review. Pt states recent issues with constipation. Note pt has had 9 BM since 08/05 and pt not currently on bowel regimen, per chart review. Pt states no recent wt changes. Note unable to determine recent wt hx, per chart review. ABNORMAL NUTRITION-RELATED LAB VALUES LOW: Na 133; Ca 8.0; Pro 5.2; alb 3.0 HIGH: K 5.2; glu 122; AST 45; alkphos 139 Est. kcal needs: 0392-2400 kcal | 20-25 kcal/kg Est. Pro needs: 81-97 g Pro | 1.0-1.2 g Pro/kg PES STATEMENT: Inadequate oral intake (NI-2.1) related to nausea | vomiting | loss of appetite as evidenced by pt interview | avg PO intake 43% x2d INTERVENTION: Continue with current diet order of DY3 Advanced diet. Add Ensure Enlive (vary) to meals TID to increase kcal intake. Provides 350 kcal and 13 g Pro per serving. Will continue to follow and reassess as pt needs and status change. MONITOR/EVALUATE: PO Intake; Plan of Care; Hydration Status; Weight Status; Lab Values Marshall Munguia, MS, RD, LD
[2019-08-07 11:30] VITALS: BP 126/71
[2019-08-07 13:08] VITALS: BP 126/71
--- NOTE | 2019-08-07 13:19 | NUR ---
prior to cardizem at noon hr was 85 bpm b/p was 126/71.
--- NOTE | 2019-08-07 13:20 | Progress Note ---
Subjective Date Seen by a Provider: Aug 07, 2019 Time Seen by a Provider: 10:00 Subjective/Events-last exam doing better today. contrast in colon at 13 hrs consistent with PSBO. no having copious BM's. Focused Exam Lactate Level 08/04/19 16:40: Lactic Acid Level 1.08 Objective Exam Vital Signs Date Time Temp Pulse Resp B/P (MAP) Pulse Ox O2 Delivery O2 Flow Rate FiO2 08/07/19 13:08 35.8 85 16 126/71 (89) 96 Room Air 08/07/19 11:30 35.8 85 16 126/71 (89) 96 Room Air 08/07/19 08:30 94 Room Air 08/07/19 08:00 94 Room Air 2.00 08/07/19 07:30 36.6 91 18 104/68 (80) 99 Room Air 08/07/19 07:00 84 08/07/19 04:00 37.0 78 0 135/73 (93) 99 Room Air 08/07/19 03:39 37.0 78 20 135/73 (93) 99 Room Air 08/07/19 01:00 85 08/07/19 00:00 36.7 89 18 96/63 (74) 98 Room Air 08/06/19 20:00 37.2 100 18 132/69 (90) 93 Room Air 08/06/19 20:00 Room Air 08/06/19 19:05 90 Room Air 08/06/19 19:00 95 08/06/19 16:00 37.0 97 18 110/71 (84) 93 Room Air 08/06/19 14:09 Room Air 08/06/19 13:55 94 Room Air I & O 08/07/19 07:00 Intake Total 1300 ml Balance 1300 ml Capillary Refill : Less Than 3 SecondsLess Than 3 Seconds General Appearance: No Apparent Distress HEENT: PERRL/EOMI Neck: Full Range of Motion Respiratory: Chest Non Tender, Normal Breath Sounds Cardiovascular: Regular Rate, Rhythm Gastrointestinal: normal bowel sounds, non tender, soft Extremity: Normal Capillary Refill Neurologic/Psychiatric: Alert, Oriented x3 Skin: Normal Color Lymphatic: No Adenopathy Results Lab Microbiology 08/04/19 Blood Culture - Preliminary, Resulted No growth 08/04/19 Gram Stain - Final, Complete 08/04/19 Sputum Culture - Final, Complete Usual upper respiratory maria e Assessment/Plan Assessment/Plan Assess & Plan/Chief Complaint PSBO start clears and advance to low residue/soft diet. if tolerating diet can d/c home. may address hernia later after enough time elapsed from recent general anesthesia. Clinical Quality Measures DVT/VTE Risk/Contraindication: Risk Factor Score Per Nursin RFS Level Per Nursing on Admit: 4+=Very High FATUMA RODAS MD Aug 07, 2019 13:19 POS
[2019-08-07] MEDS: HYDROcodone/APAP 7.5 MG/325 MG (LORTAB, LORCET PLUS) TABLET PO PRN (15:39)
--- NOTE | 2019-08-07 19:25 | NUR ---
Patient left unit with family and staff in stable condition. No iv present, all belongings with patient.
== END 2019-08-07 19:30 | disposition home or self-care (01) | DRG 389 ==
LOC: ER 08:35 → EDUNIT# 08:35 → 4TH 11:27
PROVIDERS: ADMIT Internal Medicine; ATTEND Internal Medicine
PROC: 0D9670Z Drainage of Stomach with Drainage Device, Via Natural or Artificial Opening (ICD-10-PCS; principal; 2019-08-03)
DX: K56.690 Other partial intestinal obstruction (principal); I48.19 Other persistent atrial fibrillation; T40.605A Adverse effect of unspecified narcotics, initial encounter; R05 Cough; R50.9 Fever, unspecified; K43.2 Incisional hernia without obstruction or gangrene; I10 Essential (primary) hypertension; J43.9 Emphysema, unspecified; R60.9 Edema, unspecified; K75.3 Granulomatous hepatitis, not elsewhere classified; M06.9 Rheumatoid arthritis, unspecified; M19.91 Primary osteoarthritis, unspecified site; M81.0 Age-related osteoporosis without current pathological fracture; Z96.641 Presence of right artificial hip joint; Z79.01 Long term (current) use of anticoagulants; Z87.891 Personal history of nicotine dependence; Z77.29 Contact with and (suspected) exposure to other hazardous substances
CPT/HCPCS: 36415; 71045; 74018; 74176; 74250; 80053; 83605; 83690; 83735; 85007; 85025; 85027; 87040; 87070; 87205; 93005; 93306; 94640; 94760; 96361; 96374; 96375; 96376

== ENCOUNTER → 2019-09-16 | Outpatient (CLI) | payer MEDICARE, MEDICAID ==
[~2019-09-16] MED LIST changes: +ACET-77 PO; +APIX5TAB PO; +LISI10TA2 PO; +MULT-878 PO; +OXYC-471 PO; +POTA10TA10 PO; +PROM25TA14 PO; +RIVA10TA PO; -TRAM50TA2 PO; +TRM50T PO
== END ==
LOC: WOUNDCARE 14:26
PROVIDERS: ATTEND Preventive Medicine Undersea and Hyperbaric Medicine
DX: I87.331 Chronic venous hypertension (idiopathic) with ulcer and inflammation of right lower extremity (principal)
CPT/HCPCS: 99213

== ENCOUNTER → 2019-10-09 | Outpatient (CLI) | payer MEDICARE, MEDICAID ==
[~2019-10-09] MED LIST changes: -ACET-77 PO; +ACET-78 PO; -MAGN400T6 PO; +MAGN400T8 PO; -MELA3TAB PO; +MELA3TAB65 PO
== END ==
LOC: WOUNDCARE 15:02
PROVIDERS: ATTEND Orthopaedic Surgery Hand Surgery
DX: L97.211 Non-pressure chronic ulcer of right calf limited to breakdown of skin (principal); I87.331 Chronic venous hypertension (idiopathic) with ulcer and inflammation of right lower extremity; S80.821A Blister (nonthermal), right lower leg, initial encounter; L03.115 Cellulitis of right lower limb; L29.9 Pruritus, unspecified
CPT/HCPCS: 99213

== ENCOUNTER → 2019-10-17 | Outpatient (CLI) | payer MEDICARE, MEDICAID | LOC: WOUNDCARE 15:06 | PROVIDERS: ATTEND Orthopaedic Surgery Hand Surgery | DX: L97.211 Non-pressure chronic ulcer of right calf limited to breakdown of skin (principal); I87.331 Chronic venous hypertension (idiopathic) with ulcer and inflammation of right lower extremity; L29.9 Pruritus, unspecified | CPT/HCPCS: 99212 ==

== ENCOUNTER → 2019-10-21 | Outpatient (CLI) | payer MEDICARE, MEDICAID | LOC: WOUNDCARE 15:02 | PROVIDERS: ATTEND Preventive Medicine Undersea and Hyperbaric Medicine | DX: L97.211 Non-pressure chronic ulcer of right calf limited to breakdown of skin (principal); I87.331 Chronic venous hypertension (idiopathic) with ulcer and inflammation of right lower extremity; L29.8 Other pruritus; I96 Gangrene, not elsewhere classified | CPT/HCPCS: 29580 ==

== ENCOUNTER → 2019-10-28 | Outpatient (CLI) | payer MEDICARE, MEDICAID | LOC: WOUNDCARE 12:51 | PROVIDERS: ATTEND Preventive Medicine Undersea and Hyperbaric Medicine | DX: L97.211 Non-pressure chronic ulcer of right calf limited to breakdown of skin (principal); I87.331 Chronic venous hypertension (idiopathic) with ulcer and inflammation of right lower extremity; L29.9 Pruritus, unspecified | CPT/HCPCS: 99213 ==

== ENCOUNTER → 2021-03-04 | Outpatient (CLI) | payer MEDICARE, MEDICAID ==
[~2021-03-04] MED LIST changes: -HYDR-3641 PO; +HYDR-4164 PO; -LISI10TA2 PO; +LISI10TA25 PO; +MELA3TAB39 PO; -MELA3TAB65 PO; +OXC5T PO; -OXYC-471 PO; -OXYC-529 PO; +OXYC1TAB11 PO; -PANT40TA3 PO; +PANT40TA52 PO
== END ==
LOC: WOUNDCARE 14:14
PROVIDERS: ATTEND Surgery
DX: I87.332 Chronic venous hypertension (idiopathic) with ulcer and inflammation of left lower extremity (principal); I96 Gangrene, not elsewhere classified; I89.0 Lymphedema, not elsewhere classified; L97.212 Non-pressure chronic ulcer of right calf with fat layer exposed; I70.232 Atherosclerosis of native arteries of right leg with ulceration of calf
CPT/HCPCS: 99212

== ENCOUNTER → 2021-03-10 | Outpatient (CLI) | payer MEDICARE, MEDICAID ==
[2021-03-10 15:18] LABS: BASOPHILS % (AUTO) 1 % (0-10); EOSINOPHILS # (AUTO) 0.2 10^3/uL (0.0-0.3); EOSINOPHILS % (AUTO) 5 % (0-10); HEMATOCRIT 35 % (35-52); HEMOGLOBIN 11.1 g/dL (11.5-16.0); LYMPHOCYTES # (AUTO) 0.9 X 10^3 (1.0-4.0); LYMPHOCYTES % (AUTO) 21 % (12-44); MEAN CORPUSCULAR HEMOGLOBIN 30 pg (25-34); MEAN CORPUSCULAR HGB CONC 32 g/dL (32-36); MEAN CORPUSCULAR VOLUME 93 fL (80-99); MEAN PLATELET VOLUME 8.5 fL (9.0-12.2); MONOCYTES # (AUTO) 0.5 X 10^3 (0.0-1.0); MONOCYTES % (AUTO) 13 % (0-12); NEUTROPHILS # (AUTO) 2.5 X 10^3 (1.8-7.8); NEUTROPHILS % (AUTO) 60 % (42-75); PLATELET COUNT 245 10^3/uL (130-400); WHITE BLOOD COUNT 4.1 10^3/uL (4.3-11.0)
[2021-03-10 15:30] LABS: ALBUMIN 3.9 GM/DL (3.2-4.5); POTASSIUM 3.9 MMOL/L (3.6-5.0)
[2021-03-10 15:31] LABS: CALCIUM 9.1 MG/DL (8.5-10.1)
[2021-03-10 15:32] LABS: TOTAL PROTEIN 7.1 GM/DL (6.4-8.2)
[2021-03-10 15:34] LABS: BILIRUBIN,TOTAL 0.4 MG/DL (0.1-1.0)
[2021-03-10 15:36] LABS: CREATININE SERUM 1.95 MG/DL (0.60-1.30)
== END ==
LOC: LAB 14:56
PROVIDERS: ATTEND Surgery
DX: L97.212 Non-pressure chronic ulcer of right calf with fat layer exposed (principal)
CPT/HCPCS: 36415; 80053; 85025

== ENCOUNTER → 2021-03-18 | Outpatient (CLI) | payer MEDICARE, MEDICAID | LOC: WOUNDCARE 15:23 | PROVIDERS: ATTEND Surgery | DX: N18.4 Chronic kidney disease, stage 4 (severe) (principal); I87.331 Chronic venous hypertension (idiopathic) with ulcer and inflammation of right lower extremity; I89.0 Lymphedema, not elsewhere classified; L97.212 Non-pressure chronic ulcer of right calf with fat layer exposed; I70.232 Atherosclerosis of native arteries of right leg with ulceration of calf; I96 Gangrene, not elsewhere classified | CPT/HCPCS: 99212 ==

== ENCOUNTER → 2021-03-23 | Outpatient (CLI) | payer MEDICARE, MEDICAID | LOC: WOUNDCARE 13:39 | PROVIDERS: ATTEND Surgery | DX: N18.4 Chronic kidney disease, stage 4 (severe) (principal); I87.331 Chronic venous hypertension (idiopathic) with ulcer and inflammation of right lower extremity; I89.0 Lymphedema, not elsewhere classified; L97.212 Non-pressure chronic ulcer of right calf with fat layer exposed; I70.232 Atherosclerosis of native arteries of right leg with ulceration of calf; I96 Gangrene, not elsewhere classified | CPT/HCPCS: 99212 ==

== ENCOUNTER → 2021-05-11 | Outpatient (CLI) | payer MEDICARE, MEDICAID ==
[2021-05-11 15:26] LABS: ALBUMIN 4.3 GM/DL (3.2-4.5); POTASSIUM 3.8 MMOL/L (3.6-5.0)
[2021-05-11 15:29] LABS: TOTAL PROTEIN 7.5 GM/DL (6.4-8.2)
[2021-05-11 15:30] LABS: BILIRUBIN,TOTAL 0.4 MG/DL (0.1-1.0)
[2021-05-11 15:32] LABS: CREATININE SERUM 1.47 MG/DL (0.60-1.30)
== END ==
LOC: CARD 14:10
PROVIDERS: ATTEND Physician Assistant
DX: I11.9 Hypertensive heart disease without heart failure (principal); E78.2 Mixed hyperlipidemia
CPT/HCPCS: 36415; 80053; 80061; 93306

== ENCOUNTER → 2022-02-03 | Outpatient (CLI) | payer MEDICARE, MEDICAID ==
[~2022-02-03] MED LIST changes: -MAGN400T8 PO; +MGX400T PO
== END ==
LOC: WOUNDCARE 13:10
PROVIDERS: ATTEND Family Medicine
DX: L97.211 Non-pressure chronic ulcer of right calf limited to breakdown of skin (principal); I87.331 Chronic venous hypertension (idiopathic) with ulcer and inflammation of right lower extremity; I89.0 Lymphedema, not elsewhere classified; E66.09 Other obesity due to excess calories; N18.32 Chronic kidney disease, stage 3b
CPT/HCPCS: 29580

== ENCOUNTER → 2022-02-08 | Outpatient (CLI) | payer MEDICARE, MEDICAID | LOC: WOUNDCARE 13:59 | PROVIDERS: ATTEND Family Medicine | DX: I89.0 Lymphedema, not elsewhere classified (principal); S81.801A Unspecified open wound, right lower leg, initial encounter; D64.9 Anemia, unspecified; J44.9 Chronic obstructive pulmonary disease, unspecified | CPT/HCPCS: 29580 ==

== ENCOUNTER → 2022-02-10 | Outpatient (CLI) | payer MEDICARE, MEDICAID | LOC: WOUNDCARE 14:20 | PROVIDERS: ATTEND Family Medicine | DX: L97.211 Non-pressure chronic ulcer of right calf limited to breakdown of skin (principal); I87.331 Chronic venous hypertension (idiopathic) with ulcer and inflammation of right lower extremity; I89.0 Lymphedema, not elsewhere classified; E66.09 Other obesity due to excess calories; N18.32 Chronic kidney disease, stage 3b; L03.115 Cellulitis of right lower limb | CPT/HCPCS: 99212 ==

== ENCOUNTER → 2022-02-16 | Outpatient (CLI) | payer MEDICARE, MEDICAID | LOC: WOUNDCARE 14:16 | PROVIDERS: ATTEND Family Medicine | DX: I87.331 Chronic venous hypertension (idiopathic) with ulcer and inflammation of right lower extremity (principal); L97.211 Non-pressure chronic ulcer of right calf limited to breakdown of skin; I89.0 Lymphedema, not elsewhere classified; N18.30 Chronic kidney disease, stage 3 unspecified; L03.115 Cellulitis of right lower limb; E66.09 Other obesity due to excess calories | CPT/HCPCS: 99213 ==

== ENCOUNTER → 2022-02-24 | Outpatient (CLI) | payer MEDICARE, MEDICAID | LOC: WOUNDCARE 14:29 | PROVIDERS: ATTEND Family Medicine | DX: I96 Gangrene, not elsewhere classified (principal); L97.211 Non-pressure chronic ulcer of right calf limited to breakdown of skin; I87.331 Chronic venous hypertension (idiopathic) with ulcer and inflammation of right lower extremity; I89.0 Lymphedema, not elsewhere classified; E66.09 Other obesity due to excess calories; N18.32 Chronic kidney disease, stage 3b; Z91.19 Patient's noncompliance with other medical treatment and regimen; Z68.29 Body mass index [BMI] 29.0-29.9, adult | CPT/HCPCS: 99212 ==

== ENCOUNTER → 2022-03-03 | Outpatient (CLI) | payer MEDICARE, MEDICAID | LOC: WOUNDCARE 13:54 | PROVIDERS: ATTEND Family Medicine | DX: I89.0 Lymphedema, not elsewhere classified (principal); E66.09 Other obesity due to excess calories; N18.32 Chronic kidney disease, stage 3b; Z91.19 Patient's noncompliance with other medical treatment and regimen | CPT/HCPCS: 99212 ==